=== PATIENT | female | born 1955 | race Caucasian/White ===

== ENCOUNTER 2021-07-30 17:53 | Inpatient (IN) ==
--- NOTE | 2021-07-30 18:26 | Emergency Department Note ---
History of Present Illness General Chief complaint: Confusion Stated complaint: Confusion Time Seen by Provider: 07/30/21 18:13 Source: patient and family ( and daughter) Mode of arrival: EMS History of Present Illness Provider complaint: Altered mental status Onset (ago): hour(s) Location: head Pain Consistency: + constant Maximum Pain Intensity: 6 Quality: + other (Confusion) Relieved By: + none Associated symptoms: + confusion; no chest pain, no cough, no fever/chills, no headaches, no nausea/vomiting or no shortness of breath This is a 66-year-old female brought in by ambulance due to sudden onset of confusion at approximately 2 PM today. is providing much of the history. He states that he went out for a walk with the patient when she became suddenly confused. This happened in May after her first chemotherapy treatment for uterine cancer. That was short-lived but it has not improved at all today. The patient does not know where she is and how she got here. She only states that she has called repeatedly. She is able to answer yes and no questions and denies headache, cough or cold symptoms, fever, chest pain, shortness of breath, abdominal pain, vomiting, diarrhea or urinary symptoms. She did have a hysterectomy at the end of May and has received 2 rounds of chemotherapy. She has never had a stroke before. They do not note a personality change with her. She is on the "feisty" side. Home Medications Medication Instructions Recorded Confirmed Type omeprazole 20 mg capsule,delayed 20 mg PO QAM 05/20/18 07/30/21 History release celecoxib 200 mg capsule 200 mg PO DAILY PRN 07/30/21 07/30/21 History cholecalciferol (vitamin D3) 25 25 mcg PO DAILY 07/30/21 07/30/21 History mcg (1,000 unit) tablet (Vitamin D3) furosemide 20 mg tablet 20 mg PO QAM 07/30/21 07/30/21 History multivitamin 1 tab PO DAILY 07/30/21 07/30/21 History potassium chloride 20 mEq 20 meq PO QAM 07/30/21 07/30/21 History tablet,extended release(part/cryst) Allergies Allergy/AdvReac Type Severity Reaction Status Date / Time erythromycin base Allergy Mild NAUSEA/VOMI Verified 07/30/21 21:04 TTING Past Med/Surg History Medical History GERD (gastroesophageal reflux disease) Osteoarthritis Surgical History History of cataract surgery LEFT 06/13/18: was given 2mg of versed Hx of dilation and curettage Hx of reduction of closed dislocation RIGHT WRIST Hx of tonsillectomy Social History Smoking Status: Unknown if ever smoked Second Hand Exposure: No; Hx Alcohol Use: Yes Alcohol type: beer Hx Substance Use: No Preferred Language: Moroccan Communication Ability: Effective Scissors Sharpener Required: No Beliefs That Will Affect Care: None Current Living Situation: Spouse Feels Safe at Home: Yes Assistive Devices: Glasses Review of Systems See HPI for pertinent positives & negatives. and A total of 10 systems reviewed and were otherwise negative Physical Exam Vital Signs Vital Signs - 24 hr 07/30/21 18:15 07/30/21 19:05 07/30/21 21:18 Temperature 36.9 C Temperature Source Oral Pulse Rate 81 82 Pulse Rate [Right Finger] 80 Respiratory Rate 16 19 Respiratory Effort / Characteristics Non-Labored Respiratory Depth Normal Respiratory Pattern Regular Blood Pressure 125/63 Blood Pressure [Right Arm] 121/52 L Blood Pressure Mean [Right Arm] 75 Pulse Oximetry 96 96 Oxygen Delivery Method Room Air Room Air Sepsis Recent Fever Within 48 Hours No Sepsis New/Unexplained Change in Mental Status N/A Sepsis Action Taken by Nursing No Action Required Constitutional: Vital signs reviewed. Eyes: Pupils are equal round reactive to light. Conjunctiva are noninjected. ENT: Pharynx is clear without erythema or exudate. Mucous membranes are moist. Neck supple without meningeal signs. Respiratory: Clear to auscultation bilaterally. Breath sounds are equal bilaterally. Cardiovascular: Regular rate and rhythm. No rubs or gallops. GI: Soft, nondistended with mild lower abdominal tenderness. Midline incision healing well. No signs of infection. Bowel sounds are present. Rectal: Guaiac negative brown stool. Musculoskeletal: No peripheral edema. No lower extremity tenderness. Integumentary: No cyanosis. or jaundice. Neurologic: The patient is awake and alert. She is oriented to person only. Cranial nerves II-XII are intact. Motor is 5 out of 5 all extremities. Sensation is intact to light touch all extremities. Normal speech. No pronator drift. No limb ataxia. Psychiatric: Unable to assess. States repeatedly that she is cold. Keeps her head under the blanket. Course Administered Medications Magnesium Sulfate/Dextrose (Magnesium Sulfate / D5w) 1 gm in 100 mls @ 100 mls/hr IV Q1H AILEEN Stop: 07/30/21 21:36 Last Admin: 07/30/21 21:15 Dose: 100 mls/hr Documented by: [id number] Infusion: 07/30/21 21:14 Dose: 0 mls/hr Documented by: [id number] Admin: 07/30/21 20:12 Dose: 100 mls/hr Documented by: [id number] Discontinued Medications Diclofenac Sodium (Diclofenac Sod 1% Gel 100 Gm Tube) 2 gm EXT NOW STA Stop: 07/30/21 20:03 Last Admin: 07/30/21 20:12 Dose: 2 gm Documented by: [id number] Potassium Chloride (K Yusuf / Wtr) 10 meq in 100 mls @ 100 mls/hr IV ONE ONE; Protocol Stop: 07/30/21 20:35 Last Infusion: 07/30/21 21:14 Dose: 0 mls/hr Documented by: [id number] Admin: 07/30/21 19:51 Dose: 100 mls/hr Documented by: [id number] Potassium Chloride (Potassium Chloride 10 Meq Tabcr) 40 meq PO NOW STA Stop: 07/30/21 19:37 Last Admin: 07/30/21 19:51 Dose: 40 meq Documented by: [id number] Medical Decision Making Differential Diagnosis CVA, TIA, intracranial hemorrhage, intracranial mass, metastatic disease to the brain, metabolic derangement, encephalopathy Medical Records Attestation: I reviewed the patient's medical records. I did perform a limited focused review of portions of the patient's old chart on the electronic medical record. The patient has had no recent pertinent visits to this hospital. Home Medications Current Medication List: was personally reviewed by me Laboratory Data Attestation: I reviewed the patient's lab results. Result diagrams: 07/30/21 18:27 07/30/21 18:27 Lab Results 07/30/21 07/30/21 07/30/21 Range/Units 18:27 18:27 18:27 WBC 2.42 L (4.8-10.8) K/uL RBC 2.24 L (4.2-5.4) M/uL Hgb 7.0 L (12.0-16.0) g/dL Hct 21.4 L (37-47) % MCV 95.5 (80-100) fL MCH 31.3 (25-34) pg MCHC 32.7 (32-36) g/dL RDW Std Deviation 56.4 H (36.4-46.3) fL RDW Coeff of Khushbu 16.6 H (11.5-14.5) % Plt Count 108 L (130-400) K/uL MPV 10.7 H (7.4-10.4) fL Neutrophils % (Manual) 28.6 % Lymphocytes % (Manual) 48.2 % Monocytes % (Manual) 23.2 % Neutrophils # (Manual) 0.69 L (1.4-6.5) K/uL Total Absolute Neuts 0.69 L* (1.4-6.5) K/uL Lymphocytes # (Manual) 1.17 L (1.2-3.4) K/uL Total Abs Lymphocytes 1.17 L (1.2-3.4) K/uL Monocytes # (Manual) 0.56 (0.11-0.59) K/uL Toxic Granulation 2+ Poikilocytosis Present PT 11.1 (9.0-12.0) Seconds INR 1.0 (0.9-1.1) APTT 26.3 (21.0-31.0) Seconds PTT Ratio 1.0 Sodium 135 L (136-145) mmol/L Potassium 2.8 L (3.5-5.1) mmol/L Chloride 100 (98-107) mmol/L Carbon Dioxide 23 (21-32) mmol/L Anion Gap 12 H (3-11) BUN 12 (6-23) mg/dl Creatinine 1.06 (0.6-1.2) mg/dl Est Cr Clr Drug Dosing 47.6 ml/min Est GFR ( Amer) 62.5 ml/min Est GFR (Non-Af Amer) 53.9 ml/min BUN/Creatinine Ratio 11.3 (10-20) Glucose 98 (70-99(Fasting)) mg/dl Calcium 8.9 (8.5-10.1) mg/dl Magnesium 1.1 L (1.7-2.4) mg/dl Total Bilirubin 0.6 (0.2-1.0) mg/dl AST 14 (13-39) U/L ALT 12 (7-52) U/L Alkaline Phosphatase 77 (34-104) U/L Troponin I High Sens 8.2 (0-14) pg/ml Total Protein 6.7 (6.0-8.3) gm/dl Albumin 3.4 (3.4-5.0) gm/dl Globulin 3.3 (2.5-4.0) gm/dl Albumin/Globulin Ratio 1.0 (0.9-2) Urine Color Urine Appearance (Clear) Urine pH (4.5-7.5) Ur Specific [place] (1.000-1.030) Urine Protein (Negative) Urine Glucose (UA) (Negative) Urine Ketones (Negative) Urine Blood (Negative) Urine Nitrite (Negative) Urine Bilirubin (Negative) Urine Urobilinogen (Negative) Ur Leukocyte Esterase (Negative) SARS-CoV-2, RNA, NAAT (NEGATIVE) Blood Type Antibody Screen 07/30/21 07/30/21 07/30/21 Range/Units 18:45 19:24 20:49 WBC (4.8-10.8) K/uL RBC (4.2-5.4) M/uL Hgb (12.0-16.0) g/dL Hct (37-47) % MCV (80-100) fL MCH (25-34) pg MCHC (32-36) g/dL RDW Std Deviation (36.4-46.3) fL RDW Coeff of Khushbu (11.5-14.5) % Plt Count (130-400) K/uL MPV (7.4-10.4) fL Neutrophils % (Manual) % Lymphocytes % (Manual) % Monocytes % (Manual) % Neutrophils # (Manual) (1.4-6.5) K/uL Total Absolute Neuts (1.4-6.5) K/uL Lymphocytes # (Manual) (1.2-3.4) K/uL Total Abs Lymphocytes (1.2-3.4) K/uL Monocytes # (Manual) (0.11-0.59) K/uL Toxic Granulation Poikilocytosis PT (9.0-12.0) Seconds INR (0.9-1.1) APTT (21.0-31.0) Seconds PTT Ratio Sodium (136-145) mmol/L Potassium (3.5-5.1) mmol/L Chloride (98-107) mmol/L Carbon Dioxide (21-32) mmol/L Anion Gap (3-11) BUN (6-23) mg/dl Creatinine (0.6-1.2) mg/dl Est Cr Clr Drug Dosing ml/min Est GFR ( Amer) ml/min Est GFR (Non-Af Amer) ml/min BUN/Creatinine Ratio (10-20) Glucose (70-99(Fasting)) mg/dl Calcium (8.5-10.1) mg/dl Magnesium (1.7-2.4) mg/dl Total Bilirubin (0.2-1.0) mg/dl AST (13-39) U/L ALT (7-52) U/L Alkaline Phosphatase (34-104) U/L Troponin I High Sens (0-14) pg/ml Total Protein (6.0-8.3) gm/dl Albumin (3.4-5.0) gm/dl Globulin (2.5-4.0) gm/dl Albumin/Globulin Ratio (0.9-2) Urine Color Yellow Urine Appearance Clear (Clear) Urine pH >= 9.0 H (4.5-7.5) Ur Specific [place] 1.010 (1.000-1.030) Urine Protein Negative (Negative) Urine Glucose (UA) Negative (Negative) Urine Ketones Negative (Negative) Urine Blood Negative (Negative) Urine Nitrite Negative (Negative) Urine Bilirubin Negative (Negative) Urine Urobilinogen Negative (Negative) Ur Leukocyte Esterase Negative (Negative) SARS-CoV-2, RNA, NAAT NEGATIVE (NEGATIVE) Blood Type A Positive Antibody Screen NEGATIVE Imaging Data Radiologist's Impression: Head CT 07/30/21 18:23 CT head/brain wo con CLINICAL HISTORY: 66 years-old Female with Stroke Like Symptoms. Acute strokeli ke symptoms TECHNIQUE: Multiple axial CT images of the head were obtained without contrast. A dose lowering technique was utilized adhering to the principles of ALARA. CT DOSE: 945.80 mGy.cm COMPARISON: None. FINDINGS: No acute intracranial hemorrhage, midline shift, intracranial mass, territorial ischemia or abnormal extra-axial collection. Motion degraded exam. Mild involutional changes. Ex vacuo ventriculomegaly. White matter hypodensities suggest chronic micro-Rasco ischemic disease. The calvarium is intact. Prior bilateral lens repair. The paranasal sinuses, mastoid air cells, and middle ear cavities are clear. IMPRESSION: 1. No acute intracranial abnormality. 2. Ventriculomegaly may be secondary to the involutional changes. Normal pressure hydrocephalus could appear similarly. Correlate with clinical presentation. 3. Suggestion of mild chronic microvascular ischemic disease. ACT 112: Negative or not required by law. The above report was generated using voice recognition software. It may contain grammatical, syntax or spelling errors. Electronically signed by: Chetan Leroy M.D. 07/30/2021 6:47 PM ECG Data Attestation: I personally reviewed and interpreted this ECG as follows: Indication: + altered mental status Rate (beats per minute): 86 Rhythm: + normal sinus ECG ST segments: no ST elevation ECG Findings: + PVCs and + Other (Motion artifact in V3 limiting interpretation) MDM Narrative I did evaluate the patient as noted above. I did obtain history from the patient as well as her family were at bedside. She did become confused today at approximately 2 PM. She had no personality change but seem to have issues with her memory. Apparently she was ignoring her . She did not have any slurring of her speech. If this does represent a stroke she is outside of the IV tPA window given the timing. She is neurologically intact here although she cannot remember coming to the emergency department. She is oriented only to person. IV access was established. I did place an order for continuous cardiac monitoring. The monitor showed normal sinus rhythm at a rate of 80 bpm. I did order and personally review the patient's 12-lead EKG as described above. She has no acute ischemic changes on twelve-lead EKG. I did order a chest x-ray but the family refused that stating that they felt it was unnecessary. I did order a urine analysis. She does not have a UTI. I did order and review the patient's blood work as noted in the electronic medical record. She is neutropenic with pancytopenia. She was placed in neutropenic isolation. Hemoglobin is 7 down from 8.9 11 days ago. I did perform a rectal examination which showed guaiac negative brown stool. She denies any black or bloody stools. Electrolytes demonstrate a sodium of 135 and a potassium of 2.8. She is on Lasix. Magnesium is 1.1 as well. She was given IV magnesium and potassium. I did order a CT of the head. I did review the images myself as well as the radiology report as described above. She does appear to have no acute process on CT scan. Angiogram was not performed as she has an allergy to IV dye. She does have ex vacuo ventriculomegaly. No prior imaging is available for comparison. I did discuss case with Dr. Wolfe of [place] [facility] . She recommended hospitalization for MRI and further testing to look for a metabolic encephalopathy. She also recommend possible EEG. I did discuss case with the hospitalist and case finisher. Screening for COVID-19 is negative. Impression & Plan Altered mental status, Acute hypokalemia, Hypomagnesemia, Pancytopenia, Neutropenia Discharge Plan Visit Data Chief Complaint: Confusion Stated Complaint: Confusion ED Provider: John Kent Discharge Problem: Altered mental status, Acute hypokalemia, Hypomagnesemia, Pancytopenia, Neutropenia Patient Disposition: Being Evaluated by Hospitalist Discharge Instructions Interventions: ED Discharge Assessment Last Done: 07/30/21 21:18 Forms Stand Alone Forms: My [facility] Prescriptions Prescriptions: No Action omeprazole 20 mg Capsule,Delayed Release(Dr/Ec) 20 mg PO QAM RF: 0 furosemide 20 mg tablet 20 mg PO QAM RF: 0 multivitamin Tablet 1 tab PO DAILY RF: 0 celecoxib 200 mg capsule 200 mg PO DAILY PRN (Reason: Pain) RF: 0 cholecalciferol (vitamin D3) [Vitamin D3] 25 mcg (1,000 unit) Tablet 25 mcg PO DAILY RF: 0 potassium chloride 20 mEq tablet,ER particles/crystals 20 meq PO QAM RF: 0 Referrals Referrals: Carlos Low MD [Primary Care Provider] - Discharge Problem: Altered mental status Qualifiers: Altered mental status type: disorientation Qualified Code(s): R41.0 - Disorientation, unspecified Neutropenia Qualifiers: Neutropenia type: secondary to cancer chemotherapy Qualified Code(s): D70.1 - Agranulocytosis secondary to cancer chemotherapy
[2021-07-30 18:49] LABS: Hematocrit (blood only) 21.4 % (37-47); Mean Corpuscular Hemoglobin 31.3 pg (25-34); Mean Corpuscular Hgb Conc 32.7 g/dL (32-36); Mean Corpuscular Volume 95.5 fL (80-100); Mean Platelet Volume 10.7 fL (7.4-10.4); Platelet Count 108 K/uL (130-400); RDW Coefficient of Variation 16.6 % (11.5-14.5); RDW Standard Deviation 56.4 fL (36.4-46.3); Red Blood Count 2.24 M/uL (4.2-5.4); White Blood Count 2.42 K/uL (4.8-10.8)
--- NOTE | 2021-07-30 18:49 | CT Scan Report ---
CT head/brain wo con CLINICAL HISTORY: 66 years-old Female with Stroke Like Symptoms. Acute strokelike symptoms TECHNIQUE: Multiple axial CT images of the head were obtained without contrast. A dose lowering tech nique was utilized adhering to the principles of ALARA. CT DOSE: 945.80 mGy.cm COMPARISON: None. FINDINGS: No acute intracranial hemorrhage, midline shift, intracranial mass, territorial ischemia or abnormal extra-axial collection. Motion degraded exam. Mild involutional changes. Ex vacuo ventriculomegaly. W [place] matter hypodensities suggest chronic micro-Rasco ischemic disease. The calvarium is intact. Prior bilateral lens repair. The paranasal sinuses, mastoid air cells, and m iddle ear cavities are clear. IMPRESSION: 1. No acute intracranial abnormality. 2. Ventriculomegaly may be secondary to the involutional changes. Normal pressure hydrocephalus could appear similarly. Correlate with clinical presentation. 3. Suggestion of mild chronic microvascular ischemic disease. ACT 112: Negative or not required by law. The above report was generated using voice recognition software. It may contain grammatical, syntax o r spelling errors. Electronically signed by: Chetan Leroy M.D. 07/30/2021 6:47 PM
[2021-07-30 18:59] LABS: Partial Thromboplastin Time 26.3 Seconds (21.0-31.0); Prothrombin Time 11.1 Seconds (9.0-12.0)
[2021-07-30 19:12] LABS: Albumin Level 3.4 gm/dl (3.4-5.0); BUN Creatinine Ratio 11.3 (10-20); Bilirubin,Total 0.6 mg/dl (0.2-1.0); Calcium 8.9 mg/dl (8.5-10.1); Creatinine Clr Calc Pharmacy 47.6 ml/min; Est GFR (African American) 62.5 ml/min; Est GFR (Non-African American) 53.9 ml/min; Globulin 3.3 gm/dl (2.5-4.0); Magnesium 1.1 mg/dl (1.7-2.4); Potassium 2.8 mmol/L (3.5-5.1); Total Protein 6.7 gm/dl (6.0-8.3)
[2021-07-30 19:16] LABS: Troponin I High Sensitivity 8.2 pg/ml (0-14)
[2021-07-30 19:26] LABS: Poikilocytosis Present; Toxic Granulation 2+
[2021-07-30 19:28] LABS: ALC (manual) 1.17 K/uL (1.2-3.4); Lymphocytes # (manual) 1.17 K/uL (1.2-3.4); Lymphocytes % (manual) 48.2 %; Monocytes # (manual) 0.56 K/uL (0.11-0.59); Monocytes % (manual) 23.2 %; Neutrophils # (manual) 0.69 K/uL (1.4-6.5); Neutrophils % (manual) 28.6 %
[2021-07-30] MEDS ORDERED: POTASSIUM CHLORIDE 10 MEQ TABCR PO STA (19:36)
[2021-07-30] MEDS ORDERED: POTASSIUM CHLORIDE / WTR 10 MEQ/100 ML PLCT IV ONE (19:36)
[2021-07-30] MEDS ORDERED: DICLOFENAC SOD 1% GEL 100 GM TUBE EXT STA (20:02)
[2021-07-30] MEDS: MAGNESIUM SULFATE / D5W 1 GM/100 ML BAG IV SCH ×2 (20:12→21:15)
[2021-07-30] MEDS ORDERED: THIAMINE HCL 200 MG in SODIUM CHLORIDE 0.9% 50 ML IV STA (20:58)
[2021-07-30 21:05] LABS: Appearance Urine Clear (Clear); Bilirubin Urine Negative (Negative); Blood Urine Negative (Negative); Color Urine Yellow; Glucose Urine UA Negative (Negative); Ketones Urine Negative (Negative); Leukocyte Esterase Urine Negative (Negative); Nitrite Urine Negative (Negative); Protein Urine Negative (Negative); Urobilinogen Urine Negative (Negative); pH Urine >= 9.0 (4.5-7.5)
[2021-07-30] MEDS ORDERED: POLYETHYLENE (MIRALAX) 17 GM PACK PO PRN (21:49)
[2021-07-30] MEDS ORDERED: PHARMACIST DISCHARGE MED REC CONSULT PRN (21:49)
[2021-07-30] MEDS ORDERED: ACETAMINOPHEN 325 MG TAB PO PRN (21:49)
[2021-07-30] MEDS ORDERED: oxyCODONE HCL IR 5 MG TAB (IMMEDIATE RELEASE) PO PRN (21:49)
[2021-07-30] MEDS ORDERED: ONDANSETRON INJ 2 MG/ML 2 ML VIAL IV PRN (21:49)
[2021-07-30] MEDS ORDERED: NITROGLYCERIN SL 0.4 MG/TAB TAB SL PRN (21:49)
[2021-07-30] MEDS: MAGNESIUM OXIDE 400 MG TAB PO SCH (22:29)
[2021-07-30] MEDS: SENNA 8.6 MG TAB PO SCH (22:34)
[2021-07-30] MEDS: D5NSS + 20MEQ KCL 20 MEQ/1,000 ML BAG IV SCH (22:34)
[2021-07-30] MEDS: POTASSIUM CHLORIDE / WTR 10 MEQ/100 ML PLCT IV SCH ×2 (22:35→23:37)
[2021-07-31] MEDS ORDERED: GADOBUTROL 7.5ML VIAL IV ONE (00:23)
--- NOTE | 2021-07-31 00:43 | History and Physical Report ---
CHIEF COMPLAINT: Confusion. HISTORY OF PRESENT ILLNESS: This 66-year-old female with past medical history significant for mild aortic stenosis, history of retinal vein occlusion of left eye, seasonal allergic rhinitis, osteoarthritis, degenerative disk disease, history of acute angle-closure glaucoma. The patient currently recently diagnosed with metastatic endometrial cancer, stage IVB, received 3 cycles of neoadjuvant chemotherapy and after that she underwent surgery on 06/28/2020 total abdominal hysterectomy, bilateral salpingo-oophorectomy. Currently back on chemo, last chemo was on 07/19/2021.Today the patient was walking with her around 2:00 p.m. when patient got confused. It happened in May after first chemo, but it was short-lived, but today it did not get better and she was brought to the ER. In the ER, CT of the head was okay. Could not do CTA because she is allergic to IV dye. Potassium 2.8 and magnesium 1.1. ER talked to the [facility] neurologist that recommended to work up with EEG, MRI scan and also other metabolic encephalopathy. Currently, the patient seems to be much improved as per the family, and daughter in the room. Currently, knows her , knows her daughter's name. Alert, oriented x 3. Somewhat hard of hearing, but answering appropriately, feeling cold in blankets. Moves all extremities. As per , there is no fever or chills. No nausea, no vomiting, no complaints of chest pain or shortness of breath. Somewhat constipated. Denies any blood in stools. Normal bladder movements. No hematuria, no blood in the stools. Otherwise, ambulating fine. Appetite is okay. No complaint of headache. No runny nose, no sore throat. No belly pain. Currently, stating resting comfortably and hemodynamically stable. ALLERGIES: ERYTHROMYCIN BASE. PAST MEDICAL HISTORY: As mentioned above. PAST SURGICAL HISTORY: Bilateral cataract surgery, colonoscopy, dilatation and curettage secondary to miscarriage, EGDs, exploration of exploratory laparotomy, open reduction and internal fixation of the wrist fracture. Tunnel catheter insertion, MediPort insertion, tonsillectomy, total abdominal hysterectomy with removal of tubes. MEDICATIONS: Currently, the patient is on celecoxib 200 mg p.o. daily p.r.n., vitamin D 25 mcg p.o. daily, Lasix 20 mg p.o. a.m., multivitamin 1 tablet p.o. a.m., omeprazole 20 mg p.o. a.m., potassium chloride 20 mEq p.o. a.m. FAMILY HISTORY: Significant for father has arthritis, heart disorder. Mother has arthritis, lung cancer. Sister has asthma. Brother has nasopharyngeal cancer, prostate cancer. SOCIAL HISTORY: . No smoking. Alcohol, social drinking. No drug use. REVIEW OF SYSTEMS: As per HPI. Rest of review of systems is negative. PHYSICAL EXAMINATION: GENERAL: The patient is of moderate build, not in acute distress. VITAL SIGNS: Temperature 36.9, pulse 80, respiratory rate 16, blood pressure 121/52, oxygen 96% on room air. HEENT: Pupils equal, round and reactive to light. Oral mucosa moist. NECK: No JVD, no neck masses. CARDIOVASCULAR: S1 and S2 heard. Regular rate and rhythm. No murmur, no gallop. RESPIRATORY SYSTEM: Normal AP diameter. No accessory muscle use. No wheezing, no crackles. ABDOMEN: Soft, bowel sounds present, nontender, no distention. CENTRAL NERVOUS SYSTEM: Alert and oriented x 3. Obeys simple commands. Insight is good. Power 5/5 in all extremities. Sensation is intact. Coordination of movements normal. Extraocular muscles intact. Speech is clear. No facial droop. EXTREMITIES: Bilateral lower extremity edema present, no erythema seen. LABORATORY DATA: WBC 2.4, hemoglobin 7, hematocrit 21.4, platelets 108. PT 11.1, INR 1, APTT 26.3. Sodium 135, potassium 2.8, chloride 100, bicarbonate 23, BUN 32, creatinine 1.06, serum glucose 98, calcium 8.9. Magnesium 1.1, total bilirubin 0.6, AST 14, ALT 12, alkaline phosphatase 77. Troponin I high sensitivity 8.2. Urinalysis negative. Rapid COVID test negative. IMAGING DATA: CT of the head without contrast, no acute intracranial abnormality, ventriculomegaly may be secondary to involutional changes, normal pressure hydrocephalus could appear similar. Mild chronic microvascular ischemic disease. EKG: Sinus rhythm with occasional PVCs at a rate of 86, nonspecific T-wave abnormalities. ASSESSMENT AND PLAN: This is a 66-year-old female with no history of stage IV uterine cancer, currently under chemo. Presents with confusion. 1. Confusion. The patient has history of confusion after first cycle of chemo. Currently, had surgery and again started a chemotherapy, last chemo was on 07/19/2021. . Initial workup, CT scan is unremarkable. Currently, the patient seems to be much improved. Neurology recommended MRI scan, EEG and other rule out any underlying metabolic encephalopathy. We will order MRI, EEG monitor in tele floor. Will give iv thiamine.Ventriculomegaly on ct scan. Will follow MRI. Consult neurology in the a.m. 2. Pancytopenia, most likely secondary to chemotherapy. We will follow the repeat labs. 3. Hypokalemia and hypomagnesemia. Replacing. We will follow the repeat labs. 4. Hypertension: On losartan. Follow the blood pressure. 5. History of lower extremity edema: On Lasix, which we are holding currently. 6. Gastroesophageal reflux disease, omeprazole. 7. Deep venous thrombosis prophylaxis: Sequential compression devices for now. DISPOSITION: Closely monitor in the med tele. PT/OT prior to discharge. Social service to help with discharge planning. Job ID: [id number] MTDD
[2021-07-31 06:20] LABS: BUN Creatinine Ratio 10.1 (10-20); Calcium 8.3 mg/dl (8.5-10.1); Chol HDL Ratio 6.7 (0-5); Creatinine Clr Calc Pharmacy 54.8 ml/min; Est GFR (African American) 77.2 ml/min; Est GFR (Non-African American) 66.6 ml/min; Magnesium 1.9 mg/dl (1.7-2.4); Potassium 3.8 mmol/L (3.5-5.1)
[2021-07-31 06:30] LABS: Hematocrit (blood only) 19.7 % (37-47); Hemoglobin 6.4 g/dL (12.0-16.0); Mean Corpuscular Hemoglobin 31.4 pg (25-34); Mean Corpuscular Hgb Conc 32.5 g/dL (32-36); Mean Corpuscular Volume 96.6 fL (80-100); Mean Platelet Volume 10.3 fL (7.4-10.4); Platelet Count 94 K/uL (130-400); RDW Coefficient of Variation 17.2 % (11.5-14.5); RDW Standard Deviation 59.8 fL (36.4-46.3); Red Blood Count 2.04 M/uL (4.2-5.4); White Blood Count 2.58 K/uL (4.8-10.8)
[2021-07-31 06:32] LABS: Anisocytosis Present; Eosinophils # (auto) 0.02 K/uL (0-0.5); Eosinophils % (auto) 0.8 %; Immature Granulocytes # (auto) 0.03 K/uL (0.00-0.02); Immature Granulocytes % (auto) 1.2 %; Lymphocytes # (auto) 1.41 K/uL (1.2-3.4); Lymphocytes % (auto) 54.7 %; Monocytes # (auto) 0.58 K/uL (0.11-0.59); Monocytes % (auto) 22.5 %; Neutrophils # (auto) 0.54 K/uL (1.4-6.5); Neutrophils % (auto) 20.8 %; Platelet Estimate Decreased (Normal)
[2021-07-31 06:42] LABS: Folate (Folic Acid) 20.56 ng/ml (>5.38)
--- NOTE | 2021-07-31 06:42 | Ultrasound Report ---
ULTRASOUND OF THE CAROTID ARTERIES CLINICAL HISTORY: Strokelike symptoms. COMPARISON STUDY: No priors. TECHNIQUE: Real-time, grayscale, and color Doppler sonography of the carotid arteries is performed. I mages are reviewed in the transverse and longitudinal planes. FINDINGS: The carotid arteries are patent bilaterally and demonstrate antegrade flow. There is mild atheroscler otic plaque seen in the carotid bulbs. Normal doppler arterial waveforms are seen throughout. Velocit y measurements are listed below. Common carotid peak systolic velocity (cm/sec): RIGHT: 74 LEFT: 75 ICA proximal peak systolic velocity (cm/sec): RIGHT: 79 LEFT: 70 ICA mid peak systolic velocity (cm/sec): RIGHT: 75 LEFT: 53 ICA distal peak systolic velocity (cm/sec): RIGHT: 84 LEFT: 57 ICA/CC peak systolic ratio: RIGHT: 1.1 LEFT: 0.9 Antegrade flow was shown in the vertebral arteries. The external carotid arteries are patent. IMPRESSION: 1. There is no sonographic evidence of hemodynamically significant stenosis in the right or left zhang tid arterial system. 2. Antegrade flow is shown in the vertebral arteries. ACT 112: Negative or not required by law. Electronically signed by: Oscar Burns M.D. 07/31/2021 6:41 AM
[2021-07-31 06:43] LABS: Vitamin B12 > 1500 pg/ml (180-914)
--- NOTE | 2021-07-31 06:52 | Magnetic Resonance Report ---
MRI OF THE BRAIN COMBO CLINICAL HISTORY: Change in mental status. COMPARISON STUDY: CT of the brain dated 07/30/2021. TECHNIQUE: MRI of the brain was performed utilizing various T1 and T2-weighted sequences in the axial , sagittal, and coronal planes. Contrast-enhanced sequences were acquired following the administratio n of 6 cc of Gadavist. FINDINGS: Brain parenchyma: There is age-related involutional change noting minimal microangiopathic disease. A small chronic lacunar infarct is noted in the left cerebellar hemisphere. There is also a tiny chron ic infarct in the left posterior parietal lobe. There is no hemorrhage or mass effect. There is no re stricted diffusion to suggest acute ischemia. No enhancing mass lesion is identified on the postcontr ast images. Deshpande-white matter differentiation is preserved. No extra-axial fluid collection is seen. The cerebellar tonsils are normal in configuration. Ventricles, sulci, and cisterns: Prominent secondary to involutional change. There is asymmetric dila tation of the lateral ventricles and third ventricle. Pituitary and sella: Unremarkable. Intracranial vasculature: Normal flow voids are maintained at the skull base. Orbits: The bony orbits are grossly intact. Orbital contents are normal in appearance noting bilatera l ocular lens implants. Sinuses and mastoids: The paranasal sinuses are clear. There is a small left mastoid effusion. Calvarium: Unremarkable. Cervical cord: Partially visualized cervical spinal cord is normal in morphology and signal intensity . IMPRESSION: 1. There is no hemorrhage, enhancing mass, or evidence of acute ischemia. 2. Ventriculomegaly is similar to previous. This could be related to involutional change versus hydro cephalus. Clinical correlation will be required. ACT 112: Negative or not required by law. Electronically signed by: Oscar Burns M.D. 07/31/2021 6:49 AM
[2021-07-31] MEDS: D5NSS + 20MEQ KCL 20 MEQ/1,000 ML BAG IV SCH ×3 (06:58→21:54)
[2021-07-31] MEDS: PANTOprazole 40 MG TAB PO SCH (08:37)
[2021-07-31] MEDS: MAGNESIUM OXIDE 400 MG TAB PO SCH ×2 (08:37→21:51)
[2021-07-31] MEDS: LOSARTAN POTASSIUM 25 MG TAB PO SCH (08:37)
[2021-07-31] MEDS: SENNA 8.6 MG TAB PO SCH ×2 (08:38→21:54)
[2021-07-31] MEDS ORDERED: SODIUM CHLORIDE 0.9% 250 ML IV PRN (08:44)
[2021-07-31 10:59] LABS: ANC (manual) 0.69 K/uL (1.4-6.5)
--- NOTE | 2021-07-31 14:50 | Communication Note ---
Date of Service: July 31, 2021 66-year-old female with history of metastatic endometrial cancer with ongoing chemotherapy was admitted with increasing confusion. Apparent investigation including MRI of the head have been negative. She was noted to have a very low hemoglobin with pancytopenia likely secondary to ongoing chemo and is complicated by metastatic disease. Remains a stable and has been getting blood transfusion. Will have full progress note tomorrow. DR Ameena Ortiz
--- NOTE | 2021-07-31 14:54 | Consultation Report ---
DATE OF SERVICE: 07/31/2021 REASON FOR CONSULTATION: Confusion. This visit was conducted via iPad while I was at home and the patient was in the hospital. The patient served as the chief historian. I reviewed the chart and called her , but there was no answer. HISTORY OF PRESENT ILLNESS: The patient reports that she was otherwise well yesterday, although had recently received chemotherapy and she was going up the back porch steps, which took an exceptionally long period of time, which she attributes to some chronic instability and she is amnestic for several hours until she came into the hospital. She only felt that she was off. She was not eating or drinking very much. She does not recall being amnestic, having trouble forming memories or repeating herself. Unalerting, she had no headache, unilateral weakness, or numbness. There is no incontinence, injury, or unilateral neurologic symptoms. She has lost 45 pounds since April. She indicates that several weeks ago that 9 days post-chemotherapy, she crumbled in the driveway. There is reference in the chart to a prior episode several weeks ago. To review the provided history from family, the patient was walking around 2:00 p.m., when she seemed confused, "it had happened in May after first chemo, but it was short lived, but today did not get better and she was brought to the Emergency Room." ER talked to her, stroke neurologist recommended an EEG and MRI and evaluation for toxic metabolic etiologies. Her evaluation today included a white count of 2.42, H and H of 17/21, platelet count of 108. Sodium 135, potassium 2.8, glucose ____, transaminases normal. Folate normal, B12 normal. Urinalysis negative. MRI brain shows ventriculomegaly similar to previous, could be involutional change versus hydrocephalus. I have reviewed her outpatient MRI of the brain performed in 2019 and it appears fairly similar. The patient's carotid ultrasound showed no significant narrowing with antegrade flow in the vertebral arteries. The patient's EKG was poor quality, sinus rhythm. REVIEW OF SYSTEMS: The patient notes chronic instability without vertigo for about 2 years preceding the diagnosis of cancer. She has had numbness in her feet and hands since beginning chemotherapy, which was 3 months ago. 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 PAST SURGICAL HISTORY: Bilateral cataract, colonoscopy, D and C, exploratory laparotomy, ORIF of wrist fracture, catheter insertion, tonsillectomy, total abdominal hysterectomy. HOME MEDICATIONS: Celebrex, vitamin D, Lasix, multiple vitamin, omeprazole, potassium. ALLERGIES: ERYTHROMYCIN. FAMILY HISTORY: Father has arthritis and heart disease. Mother has arthritis and lung cancer. Sister has nasopharyngeal cancer. Brother, prostate cancer. SOCIAL HISTORY: Nonsmoking. Alcohol social. PHYSICAL EXAMINATION: On exam, 115/69, 75, 18, 36.7, O2 sat 99%. The patient is awake and alert. Speech and language are normal. Affect appropriate, oriented x3. There is no right/left confusion. Naming, repetition and 3-step commands are normal. Normal extraocular motility, facial symmetry. No dysarthria. Tongue midline. Motor: No drift in the bilateral upper extremities. Equal rapid alternating movements. Lower extremity antigravity. Ljfprd-un-imny is normal. No dysdiadochokinesia. Mvxt-iw-evsw is normal. IMPRESSION: Confusional episode. Differential including transient ischemic attack, transient global amnesia, seizure, metabolic abnormality. PLAN: MRI has been performed and shows ventriculomegaly, which appears unchanged. We will have her images pushed into our system. Recommend complete vascular workup including echo, cardiac monitoring and EEG. The patient has chronic gait dysfunction. I did not ambulate the patient while on this visit as she was getting a blood transfusion. We will need to do so. She does have ventriculomegaly, which may be out of proportion to atrophy, although it has been stable. We will need to see if she has the gait dysfunction of NPH. She does not appear to have cognitive dysfunction and she does not have urinary incontinence. This would not be an explanation for acute confusion. We will follow with you. Job ID: [id number] [facility]
[2021-07-31] MEDS ORDERED: DICLOFENAC SOD 1% GEL 100 GM TUBE EXT PRN (18:28)
[2021-07-31] MEDS ORDERED: Nursing to Pharmacy Communication SCH (19:45)
[2021-08-01] MEDS: HEPARIN 100 UNIT/ML 5ML FLUSH FLUSH PRN ×2 (05:53→12:25)
[2021-08-01] MEDS: D5NSS + 20MEQ KCL 20 MEQ/1,000 ML BAG IV SCH (05:53)
--- NOTE | 2021-08-01 06:40 | Electrocardiogram Report ---
Test Reason : Blood Pressure : / mmHG Vent. Rate : 086 BPM Atrial Rate : 086 BPM P-R Int : 158 ms QRS Dur : 074 ms QT Int : 402 ms P-R-T Axes : 034 032 033 degrees QTc Int : 481 ms Poor data quality, interpretation may be adversely affected Sinus rhythm with occasional Premature ventricular complexes Nonspecific T wave abnormality Abnormal ECG No previous ECGs available Confirmed by Aj Blanc ([id number]) on 08/01/2021 6:40:10 AM Referred By: REFERRED SELF Confirmed By:Aj Blanc
[2021-08-01 08:15] LABS: Hematocrit (blood only) 29.4 % (37-47); Mean Corpuscular Hemoglobin 30.7 pg (25-34); Mean Corpuscular Volume 90.2 fL (80-100); Mean Platelet Volume 10.3 fL (7.4-10.4); Platelet Count 77 K/uL (130-400); RDW Coefficient of Variation 18.5 % (11.5-14.5); RDW Standard Deviation 59.8 fL (36.4-46.3); Red Blood Count 3.26 M/uL (4.2-5.4); White Blood Count 4.26 K/uL (4.8-10.8)
[2021-08-01 08:28] LABS: BUN Creatinine Ratio 6.9 (10-20); Calcium 8.2 mg/dl (8.5-10.1); Creatinine Clr Calc Pharmacy 69.9 ml/min; Est GFR (African American) 99.7 ml/min; Est GFR (Non-African American) 86.1 ml/min; Magnesium 1.5 mg/dl (1.7-2.4); Phosphorus 2.8 mg/dl (2.5-4.9); Potassium 3.9 mmol/L (3.5-5.1)
[2021-08-01 08:37] LABS: Basophils # (auto) 0.01 K/uL (0-0.2); Basophils % (auto) 0.2 %; Eosinophils # (auto) 0.01 K/uL (0-0.5); Eosinophils % (auto) 0.2 %; Immature Granulocytes # (auto) 0.01 K/uL (0.00-0.02); Immature Granulocytes % (auto) 0.2 %; Lymphocytes # (auto) 1.79 K/uL (1.2-3.4); Monocytes % (auto) 16.4 %; Neutrophils # (auto) 1.74 K/uL (1.4-6.5); Toxic Granulation 1+
[2021-08-01 08:40] LABS: Estimated Average Glucose 111 mg/dl; Hemoglobin A1C 5.5 % (4.5-5.6)
[2021-08-01] MEDS: SENNA 8.6 MG TAB PO SCH (09:00)
[2021-08-01] MEDS: PANTOprazole 40 MG TAB PO SCH (09:05)
[2021-08-01] MEDS: LOSARTAN POTASSIUM 25 MG TAB PO SCH (09:05)
[2021-08-01] MEDS: MAGNESIUM OXIDE 400 MG TAB PO SCH (09:05)
--- NOTE | 2021-08-01 12:11 | Neurology Progress Note ---
Date of Service August 01, 2021 Assessment & Plan (1) Altered mental status: Plan: 1. MRI brain- stable when compared to previous imaging done out patient - seen by Dr Chase 2. correct lytes 3. will need to evaluate gait for possible hydrocephalus driven issues. 4. EEG was read as normal OK to discharge when medically stable will arrange follow up as outpatient 4-6 weeks. for evaluation of gait issues. Admission and Anticipated Discharge Date Admission Date: July 30, 2021 Supervising Physician Co-Signing Physician Notes I have seen and discussed above patient with Dr Lore Ulloa, neurology. pt dc prior to my video arrival at hosp. [facility] discussed with pt . Confusional episode unclear etiology, amb eeg at outpt with fu with our department. MD Clyde Subjective She was in her normal state of health and recently received chemotherapy. She was going up the back porch steps which took an exceptionally long period of time which she attributes to some chronic instability. She is amnestic for several hours until she came into the hospital. She was not eating or drinking very much. She does not recall being amnestic, having trouble forming memories or repeating herself. She has lost 45 pounds since April. After 9 days post-chemotherapy, she crumbled in the driveway She was walking around 2:00 p.m., when she seemed confused, "it had happened in May after first chemo, but it was short lived, but today did not get better and she was brought to the [facility] ED 07/31/21 for further evaluation. She had an EEG and MRI and evaluation for toxic metabolic etiologies. talked to her he took her in the house and she set down on the stairs and was not communicating they called EMS. This happened the first time she had chemo with the labs worse this time than previous. she did feel weak and said she was not feeling well. Physical Exam Physical Exam: no exam just chart review Results & Data ([facility]) Vital Signs (Past 12 Hours) Vital Signs Temp Pulse Pulse Resp BP Pulse Ox 08/01/21 11:38 36.6 C 76 18 172/93 H 100 08/01/21 08:00 85 08/01/21 07:33 36.7 C 71 16 124/66 100 08/01/21 02:36 36.6 C 73 18 134/69 97 Laboratory Results Abnormal lab results 07/30/21 08/01/21 08/01/21 Range/Units 18:45 07:45 07:45 WBC 4.26 L (4.8-10.8) K/uL RBC 3.26 L (4.2-5.4) M/uL Hgb 10.0 L D (12.0-16.0) g/dL Hct 29.4 L (37-47) % RDW Std Deviation 59.8 H (36.4-46.3) fL RDW Coeff of Khushbu 18.5 H (11.5-14.5) % Plt Count 77 L (130-400) K/uL [place] # (Auto) 0.70 H (0.11-0.59) K/uL Chloride 112 H (98-107) mmol/L BUN 5 L (6-23) mg/dl BUN/Creatinine Ratio 6.9 L (10-20) Calcium 8.2 L (8.5-10.1) mg/dl Magnesium 1.5 L (1.7-2.4) mg/dl Crossmatch See Detail Diagnostic Findings MRI brain-There is no hemorrhage, enhancing mass, or evidence of acute ischemia. Ventriculomegaly is similar to previous. This could be related to involutional change versus hydrocephalus. Clinical correlation will be required. Carotid doppler- There is no sonographic evidence of hemodynamically significant stenosis in the right or left carotid arterial system. Antegrade flow is shown in the vertebral arteries. EEG- preliminary no seizure focus (1) Altered mental status Altered mental status type: disorientation Qualified Code(s): R41.0 - Disorientation, unspecified
--- NOTE | 2021-08-01 12:22 | Electroencephalogram ---
EEG Procedure Note Date of Service August 01, 2021 Start / End Times Start Time: 09 End Time: [address] Cortes History recurrent amnesia question seizure Home Medication List Medication Instructions Recorded Confirmed Type omeprazole 20 mg capsule,delayed 20 mg PO QAM 05/20/18 07/30/21 History release celecoxib 200 mg capsule 200 mg PO DAILY PRN 07/30/21 07/30/21 History cholecalciferol (vitamin D3) 25 25 mcg PO DAILY 07/30/21 07/30/21 History mcg (1,000 unit) tablet (Vitamin D3) furosemide 20 mg tablet 20 mg PO QAM 07/30/21 07/30/21 History multivitamin 1 tab PO DAILY 07/30/21 07/30/21 History potassium chloride 20 mEq 20 meq PO QAM 07/30/21 07/30/21 History tablet,extended release(part/cryst) Inpatient Medication List Heparin Sodium (Porcine) (Heparin 100 Unit/Ml 5ml Flush) 5 ml FLUSH PRN PRN PRN Reason: Flush Stop: 08/30/21 19:39 Last Admin: 08/01/21 05:53 Dose: 5 ml Documented by: [id number] Potassium Chloride/Dextrose/Sod Cl (D5nss + 20meq Kcl) 20 meq in 1,000 mls @ 125 mls/hr IV .Q8H AILEEN Stop: 08/29/21 21:59 Last Infusion: 08/01/21 11:47 Dose: 0 mls/hr Documented by: [id number] Admin: 08/01/21 05:53 Dose: 125 mls/hr Documented by: [id number] Infusion: 08/01/21 05:53 Dose: 125 mls/hr Documented by: [id number] Admin: 07/31/21 21:54 Dose: 125 mls/hr Documented by: [id number] Admin: 07/31/21 20:34 Dose: Not Given Documented by: [id number] Infusion: 07/31/21 19:16 Dose: 0 mls/hr Documented by: [id number] Admin: 07/31/21 06:58 Dose: 125 mls/hr Documented by: [id number] Infusion: 07/31/21 06:34 Dose: 125 mls/hr Documented by: [id number] Admin: 07/30/21 22:34 Dose: 125 mls/hr Documented by: [id number] Losartan Potassium (Losartan Potassium 25 Mg Tab) 25 mg PO QAM [facility] Stop: 08/30/21 08:59 Last Admin: 08/01/21 09:05 Dose: 25 mg Documented by: [id number] Admin: 07/31/21 08:37 Dose: 25 mg Documented by: [id number] Magnesium Oxide (Magnesium Oxide 400 Mg Tab) 400 mg PO BID [facility] Stop: 08/29/21 21:48 Last Admin: 08/01/21 09:05 Dose: 400 mg Documented by: [id number] Admin: 07/31/21 21:51 Dose: 400 mg Documented by: [id number] Admin: 07/31/21 08:37 Dose: 400 mg Documented by: [id number] Admin: 07/30/21 22:29 Dose: 400 mg Documented by: [id number] Pantoprazole Sodium (Pantoprazole 40 Mg Tab) [facility] Stop: 08/30/21 08:59 Last Admin: 08/01/21 09:05 Dose: 40 mg Documented by: [id number] Admin: 07/31/21 08:37 Dose: 40 mg Documented by: [id number] Sennosides (Senna 8.6 Mg Tab) 8.6 mg PO AMHS [facility] Stop: 08/29/21 21:48 Last Admin: 08/01/21 09:00 Dose: Not Given Documented by: [id number] Admin: 07/31/21 21:54 Dose: Not Given Documented by: [id number] Admin: 07/31/21 08:38 Dose: 8.6 mg Documented by: [id number] Admin: 07/30/21 22:34 Dose: Not Given Documented by: [id number] Discontinued Medications Diclofenac Sodium (Diclofenac Sod 1% Gel 100 Gm Tube) 2 gm EXT NOW STA Stop: 07/30/21 20:03 Last Admin: 07/30/21 20:12 Dose: 2 gm Documented by: [id number] Gadobutrol (Gadobutrol 7.5ml Vial) 6 ml IV ONCE ONE Stop: 07/31/21 00:24 Last Admin: 07/31/21 00:24 Dose: 6 ml Documented by: [id number] Magnesium Sulfate/Dextrose (Magnesium Sulfate / D5w) 1 gm in 100 mls @ 100 mls/hr IV Q1H AILEEN Stop: 07/30/21 21:36 Last Infusion: 07/30/21 22:23 Dose: 0 mls/hr Documented by: [id number] Admin: 07/30/21 21:15 Dose: 100 mls/hr Documented by: [id number] Infusion: 07/30/21 21:14 Dose: 0 mls/hr Documented by: [id number] Admin: 07/30/21 20:12 Dose: 100 mls/hr Documented by: [id number] Potassium Chloride (K Yusuf / Wtr) 10 meq in 100 mls @ 100 mls/hr IV ONE ONE; Protocol Stop: 07/30/21 20:35 Last Infusion: 07/30/21 21:14 Dose: 0 mls/hr Documented by: [id number] Admin: 07/30/21 19:51 Dose: 100 mls/hr Documented by: [id number] Thiamine HCl 200 mg/ Sodium (Chloride) 52 mls @ 208 mls/hr IV NOW STA Stop: 07/30/21 20:59 Last Infusion: 07/30/21 23:03 Dose: 0 mls/hr Documented by: [id number] Admin: 07/30/21 22:34 Dose: 208 mls/hr Documented by: [id number] Potassium Chloride (K Yusuf / Wtr) 10 meq in 100 mls @ 100 mls/hr IV Q1H AILEEN; Protocol Stop: 07/30/21 23:59 Last Infusion: 07/31/21 00:40 Dose: 0 mls/hr Documented by: [id number] Admin: 07/30/21 23:37 Dose: 100 mls/hr Documented by: [id number] Infusion: 07/30/21 23:35 Dose: 100 mls/hr Documented by: [id number] Admin: 07/30/21 22:35 Dose: 100 mls/hr Documented by: [id number] Potassium Chloride (Potassium Chloride 10 Meq Tabcr) 40 meq PO NOW STA Stop: 07/30/21 19:37 Last Admin: 07/30/21 19:51 Dose: 40 meq Documented by: [id number] Description This is a 21 electrode EEG with a single channel dedicated to limited EKG. The electrodes were placed in accordance with the International 10-20 system. this EEG was does a bedside recording and is of good technical quality. Photic stimulation was performed. drowsiness and light sleep were not recorded. Hyperventilation was not performed under these conditions there is evidence for normal appearing background rhythm in the alpha range of 0-10 hertz maximum frequency of 30 microvolts maximum amplitude. This is maximum posterior head regions and bilaterally symmetrical. Polymorphic mid frequency theta activity seen centrally and symmetrically. Beta activity seen bifrontally. Photic stimulation provokes a modest driving response no potentially epileptogenic discharges are seen Interpretation normal EEG during wakefulness Clinical Correlation this EEG is normal during wakefulness revealing no evidence for focal or generalized encephalopathy no evidence for potentially epileptogenic activity Reg Gómez MD
[2021-08-01 12:48] LABS: Hematocrit (blood only) 29.7 % (37-47); Hemoglobin 10.1 g/dL (12.0-16.0)
--- NOTE | 2021-08-01 12:49 | Hospitalist Progress Note ---
Date of Service August 01, 2021 Assessment & Plan (1) Altered mental status: Plan: Presented with acute confusion following chemo Has had similar presentation with chemo before Neuro symptoms suggestive of TIA versus stroke Has had EEG, CT scan and MRI, echocardiogram to rule out source of any stroke Appreciate neurology input and recommendation Mental status has been at baseline She will be discharged home this afternoon (2) Pancytopenia: Plan: Has pancytopenia secondary to chemotherapy and is complicated by stage IV metastatic uterine cancer Hemoglobin dropped to 6.4 on admission Status post 2 units of blood transfusion and hemoglobin went up to 10.0 Will repeat H&H this afternoon and if stable will be discharged home (3) Endometrial cancer: Plan: Has stage IV metastatic endometrial cancer Under care of oncologist and has been getting chemotherapy Was advised to keep up with a follow-up appointment for continued chemo as per oncologist (4) Aortic stenosis: Plan: No significant aortic stenosis and no significant cardiac symptoms Will be discharged home this afternoon Admission and Anticipated Discharge Date Admission Date: July 30, 2021 Subjective 08/01/2021 The patient was seen and examined in medical telemetry unit She has been feeling much better and has been walking around in the room without any significant symptoms She denies to have any more neurological symptoms Review of Systems Review of Systems: All systems reviewed and are unremarkable except as noted below Neurologic: Generally weak but no focal neurodeficit Physical Exam Physical Exam: Sitting at the edge of the bed without any symptoms Constitutional: + ill appearing and average body habitus Eyes: PERRL, conjunctivae normal, anicteric sclerae ENMT: external ear and nose normal, oropharynx normal Neck: trachea midline, no thyromegaly Respiratory: no respiratory distress Auscultation: lungs clear to auscultation bilaterally; no crackles Cardiovascular: Rate/Rhythm: regular rate and regular rhythm; not tachycardic Heart Sounds: normal S1 and normal S2; no murmur Extremities: + edema (Trace edema bilaterally) Gastrointestinal (Abdomen): Inspection/Auscultation: normal bowel sounds; abdomen not distended Percussion/Palpation: abdomen soft; abdomen nontender Musculoskeletal: No acute arthritis in any joint Neurologic: Alert, awake and oriented x3. Generally weak Psychiatric: A+Ox3, euthymic affect Lymphatic: no cervical or axillary lymphadenopathy Results & Data Results & Data ([facility]) Vital Signs (Past 12 Hours) Vital Signs Temp Pulse Pulse Resp BP Pulse Ox 05/02/22 11:38 36.6 C 76 18 172/93 H 100 08/01/21 08:00 85 08/01/21 07:33 36.7 C 71 16 124/66 100 08/01/21 02:36 36.6 C 73 18 134/69 97 Laboratory Results Short CBC 08/01/21 Range/Units 07:45 WBC 4.26 L (4.8-10.8) K/uL Hgb 10.0 L D (12.0-16.0) g/dL Hct 29.4 L (37-47) % Plt Count 77 L (130-400) K/uL BMP 08/01/21 07:45 Sodium 139 Potassium 3.9 Chloride 112 H Carbon Dioxide 22 BUN 5 L Creatinine 0.72 Glucose 97 Calcium 8.2 L Medications Administered Current Inpatient Medications Acetaminophen (Acetaminophen 325 Mg Tab) 650 mg PO Q4H PRN PRN Reason: Pain or Fever Stop: 08/29/21 21:48 Diclofenac Sodium (Diclofenac Sod 1% Gel 100 Gm Tube) 2 gm EXT HS PRN PRN Reason: Pain Stop: 08/30/21 20:59 Heparin Sodium (Porcine) (Heparin 100 Unit/Ml 5ml Flush) 5 ml FLUSH PRN PRN PRN Reason: Flush Stop: 08/30/21 19:39 Last Admin: 08/01/21 12:25 Dose: 5 ml Documented by: Potassium Chloride/Dextrose/Sod Cl (D5nss + 20meq Kcl) 20 meq in 1,000 mls @ 125 mls/hr IV .Q8H AILEEN Stop: 08/29/21 21:59 Last Infusion: 08/01/21 11:47 Dose: Infused Documented by: Losartan Potassium (Losartan Potassium 25 Mg Tab) 25 mg PO QAM AILEEN Stop: 08/30/21 08:59 Last Admin: 08/01/21 09:05 Dose: 25 mg Documented by: Magnesium Oxide (Magnesium Oxide 400 Mg Tab) 400 mg PO BID AILEEN Stop: 08/29/21 21:48 Last Admin: 08/01/21 09:05 Dose: 400 mg Documented by: Miscellaneous Information (Pharmacist Discharge Med Rec Consult) 1 ea N/A UD PRN PRN Reason: Consult Stop: 08/29/21 21:48 Nitroglycerin (Nitroglycerin Sl 0.4 Mg/Tab Tab) 0.4 mg SL UD PRN PRN Reason: Chest Pain Stop: 08/29/21 21:48 Ondansetron HCl (Ondansetron Inj 2 Mg/Ml 2 Ml Vial) 4 mg IV Q6H PRN PRN Reason: Nausea Stop: 08/29/21 21:48 Oxycodone HCl (Oxycodone Hcl Ir 5 Mg Tab (Immediate Release)) 5 mg PO Q4 PRN PRN Reason: Pain, Moderate Stop: 08/13/21 21:48 Pantoprazole Sodium (Pantoprazole 40 Mg Tab) 40 mg PO QAM [facility] Stop: 08/30/21 08:59 Last Admin: 08/01/21 09:05 Dose: 40 mg Documented by: Polyethylene Glycol (Polyethylene (Miralax) 17 Gm Pack) 17 gm PO DAILY PRN PRN Reason: Constipation Stop: 08/29/21 21:48 Sennosides (Senna 8.6 Mg Tab) 8.6 mg PO [facility] Stop: 08/29/21 21:48 Last Admin: 08/01/21 09:00 Dose: Not Given Documented by: (1) Altered mental status Altered mental status type: disorientation Qualified Code(s): R41.0 - Disorientation, unspecified
--- NOTE | 2021-08-02 07:25 | Discharge Summary ---
Date of Service August 02, 2021 Admission HPI Per Admitting Provider DICTATED BY:Gonzalo Cortes MD CHIEF COMPLAINT: Confusion. HISTORY OF PRESENT ILLNESS: This 66-year-old female with past medical history significant for mild aortic stenosis, history of retinal vein occlusion of left eye, seasonal allergic rhinitis, osteoarthritis, degenerative disk disease, history of acute angle-closure glaucoma. The patient currently recently diagnosed with metastatic endometrial cancer, stage IVB, received 3 cycles of neoadjuvant chemotherapy and after that she underwent surgery on 06/28/2020 total abdominal hysterectomy, bilateral salpingo-oophorectomy. Currently back on chemo, last chemo was on 07/19/2021.Today the patient was walking with her around 2:00 p.m. when patient got confused. It happened in May after first chemo, but it was short-lived, but today it did not get better and she was brought to the ER. In the ER, CT of the head was okay. Could not do CTA because she is allergic to IV dye. Potassium 2.8 and magnesium 1.1. ER talk ed to the [place] neurologist that recommended to work up with EEG, MRI scan and also other metabolic encephalopathy. Currently, the patient seems to be much improved as per the family, and daughter in the room. Currently, knows her , knows her daughter's name. Alert, oriented x 3. Somewhat hard of hearing, but answering appropriately, feeling cold in blankets. Moves all extremities. As per , there is no fever or chills. No nausea, no vomiting, no complaints of chest pain or shortness of breath. Somewhat constipated. Denies any blood in stools. Normal bladder movements. No hematuria, no blood in the stools. Otherwise, ambulating fine. Appetite is okay. No complaint of headache. No runny nose, no sore throat. No belly pain. Currently, stating resting comfortably and hemodynamically stable. Admission Exam Per Admitting Provider GENERAL: The patient is of moderate build, not in acute distress. VITAL SIGNS: Temperature 36.9, pulse 80, respiratory rate 16, blood pressure 121/52, oxygen 96% on room air. HEENT: Pupils equal, round and reactive to light. Oral mucosa moist. NECK: No JVD, no neck masses. CARDIOVASCULAR: S1 and S2 heard. Regular rate and rhythm. No murmur, no gallop. RESPIRATORY SYSTEM: Normal AP diameter. No accessory muscle use. No wheezing, no crackles. ABDOMEN: Soft, bowel sounds present, nontender, no distention. CENTRAL NERVOUS SYSTEM: Alert and oriented x 3. Obeys simple commands. Insight is good. Power 5/5 in all extremities. Sensation is intact. Coordination of movements normal. Extraocular muscles intact. Speech is clear. No facial droop. EXTREMITIES: Bilateral lower extremity edema present, no erythema seen. Principal Diagnosis Altered mental status-improved to baseline, anemia with pancytopenia status post 2 unit of blood transfusion, stress for metastatic endometrial cancer on chemotherapy Discharge Exam Sitting at the edge of the bed without any symptoms Constitutional + ill appearing and average body habitus Eyes PERRL, conjunctivae normal, anicteric sclerae ENMT external ear and nose normal, oropharynx normal Neck trachea midline, no thyromegaly Respiratory no respiratory distress Auscultation: lungs clear to auscultation bilaterally; no crackles Cardiovascular Rate/Rhythm: regular rate and regular rhythm; not tachycardic Heart Sounds: normal S1 and normal S2; no murmur Extremities: + edema (Trace edema bilaterally) Gastrointestinal (Abdomen) Inspection/Auscultation: normal bowel sounds; abdomen not distended Percussion/Palpation: abdomen soft; abdomen nontender Psychiatric A+Ox3, euthymic affect Lymphatic no cervical or axillary lymphadenopathy Discharge Data Allergies Allergy/AdvReac Type Severity Reaction Status Date / Time erythromycin base Allergy Mild NAUSEA/VOMI Verified 07/30/21 21:04 TTING Consultations 07/30/21 19:36 ED Decision to Admit Stat 07/31/21 08:00 Consult Neurology Routine Ordered Studies 07/30/21 18:23 CT head/brain wo con Stat 07/30/21 21:49 MR brain wo/w con Urgent US carotid doppler BI Routine Hospital Course (1) Altered mental status: Presented with acute confusion following chemo Has had similar presentation with chemo before Neuro symptoms suggestive of TIA versus stroke Has had EEG, CT scan and MRI, echocardiogram to rule out source of any stroke Appreciate neurology input and recommendation Mental status has been at baseline She will be discharged home this afternoon (2) Pancytopenia: Has pancytopenia secondary to chemotherapy and is complicated by stage IV metastatic uterine cancer Hemoglobin dropped to 6.4 on admission Status post 2 units of blood transfusion and hemoglobin went up to 10.0 Will repeat H&H this afternoon and if stable will be discharged home (3) Endometrial cancer: Has stage IV metastatic endometrial cancer Under care of oncologist and has been getting chemotherapy Was advised to keep up with a follow-up appointment for continued chemo as per oncologist (4) Aortic stenosis: No significant aortic stenosis and no significant cardiac symptoms Will be discharged home this afternoon Total Time Total Time Spent Total Time Spent (In Minutes): 35 minutes Discharge Plan Discharge Items Patient Disposition: Home - Self-Care Reason For Visit: CONFUSION Discharge Diagnosis: Altered mental status-improved to baseline, anemia with pancytopenia status post 2 unit of blood transfusion, stress for metastatic endometrial cancer on chemotherapy Condition on Discharge: Fair Activity: Resume your previous activity Non-emergency contact: Primary Care Provider Call non-emergency contact if: you have any medication questions and your symptoms worsen Follow-up/Referrals: Carlos Low MD [Primary Care Provider] - (Date & Time 08/05/2021 12:00 PM Provider Carlos Low MD Department Family [facility] ) Diet: Regular Addtl Attending Provider Instructions: Please take precautions to avoid falls No change in new medications Please keep appointments with your healthcare providers Pending Studies at Discharge: No Stand-Alone Forms: [facility] [place], Smoking Cessation Medications and DC Order Prescriptions: New magnesium oxide 400 mg (241.3 mg magnesium) Tablet 400 mg PO BID Qty: 60 RF: 0 Continued omeprazole 20 mg Capsule,Delayed Release(Dr/Ec) 20 mg PO QAM RF: 0 furosemide 20 mg tablet 20 mg PO QAM RF: 0 multivitamin Tablet 1 tab PO DAILY RF: 0 celecoxib 200 mg capsule 200 mg PO DAILY PRN (Reason: Pain) RF: 0 cholecalciferol (vitamin D3) [Vitamin D3] 25 mcg (1,000 unit) Tablet 25 mcg PO DAILY RF: 0 potassium chloride 20 mEq tablet,ER particles/crystals 20 meq PO QAM RF: 0 Discharge Orders: Discharge Order (Routine); Ordered 08/01/21 Ordered By: Vicente Louis/Other Patient Handouts: Cancer Care- Controlling Diarrhea, Hypomagnesemia Dc Admission Data Admit Date/Time: 07/30/21 20:57 Attending Provider: Vicente Ortiz Admit Provider: Gonzalo Cortes Primary Care Provider: Carlos Low Other Providers: Gonzalo Cortes ; Lore Hinojosa ; Reg Gómez ; Lore Ulloa ; Nikolas Chase Other Interventions: Discharge Summary Assessment (RN) Last Done: 08/01/21 12:59
== END 2021-08-01 15:09 | disposition home or self-care (01) | DRG 947 ==
LOC: ED 17:53 → 2W 20:57

== ENCOUNTER 2022-03-08 00:12 | Observation (INO) ==
[2022-03-08 00:43] LABS: Basophils # (auto) 0.07 K/uL (0-0.2); Basophils % (auto) 0.5 %; Eosinophils % (auto) 2.3 %; Hematocrit (blood only) 39.3 % (34.1-44.9); Hemoglobin 13.3 g/dl (12.0-16.0); Immature Granulocytes # (auto) 0.05 K/uL (0.00-0.02); Immature Granulocytes % (auto) 0.4 %; Lymphocytes % (auto) 28.1 %; Mean Corpuscular Hemoglobin 31.6 pg (25.0-34.0); Mean Corpuscular Hgb Conc 33.8 g/dL (32.0-36.0); Mean Corpuscular Volume 93.3 fL (80.0-100.0); Mean Platelet Volume 9.9 fL (9.4-12.3); Monocytes # (auto) 0.86 K/uL (0.24-0.82); Monocytes % (auto) 6.7 %; Neutrophils # (auto) 7.94 K/uL (1.4-6.5); Platelet Count 335 K/uL (130-400); RDW Coefficient of Variation 13.2 % (11.5-14.5); RDW Standard Deviation 45.1 fL (36.4-46.3); Red Blood Count 4.21 M/uL (3.93-5.22); White Blood Count 12.82 K/ul (4.8-10.8)
[2022-03-08] MEDS ORDERED: diphenhydrAMINE 50 MG/ML VIAL IV STA (00:44)
[2022-03-08] MEDS ORDERED: FUROSEMIDE 40 MG/4 ML VIAL IV ONE (00:44)
--- NOTE | 2022-03-08 00:47 | Emergency Department Note ---
History of Present Illness General Chief complaint: Shortness of Breath/Dyspnea Stated complaint: SHORTNESS OF BREATH Time Seen by Provider: 03/08/22 00:20 Source: patient Mode of arrival: wheelchair Limitations: no limitations History of Present Illness Provider complaint: Increased shortness of breath This is a 58-year-old female presents emergency room due to increased shortness of breath. Patient states she first began noticing symptoms 10 days ago. She denies fevers or chills. States no other cough or URI symptoms. Shortness of breath is progressed and is worse with laying down. And also worse with any additional exertion and she has some mild accompanying chest tightness. Patient denies nausea, vomiting, abdominal pain. She denies any leg swelling. Patient with a history of endometrial cancer. She finished chemotherapy and surgery earlier in the year. She is now getting surveillance CAT scans. Home Medications Medication Instructions Recorded Confirmed Type omeprazole 20 mg capsule,delayed 20 mg PO QAM 05/20/18 07/30/21 History release celecoxib 200 mg capsule 200 mg PO DAILY PRN Pain 07/30/21 07/30/21 History furosemide 20 mg tablet 20 mg PO QAM 07/30/21 07/30/21 History multivitamin 1 tab PO DAILY 07/30/21 07/30/21 History potassium chloride 20 mEq 20 meq PO QAM 07/30/21 07/30/21 History tablet,extended release(part/cryst) Vitamin B-12 500 mcg PO DAILY 03/08/22 03/08/22 History Vitamin D3 125 mcg PO DAILY 03/08/22 03/08/22 History diclofenac sodium 1 % topical gel 2 g topical QID PRN Pain 03/08/22 03/08/22 History losartan 25 mg tablet 25 mg PO DAILY 03/08/22 03/08/22 History Allergies Allergy/AdvReac Type Severity Reaction Status Date / Time erythromycin base Allergy Mild NAUSEA/VOMI Verified 07/30/21 21:04 TTING Past Med/Surg History Medical History (Updated 03/09/22 @ 05:22 by Sadaf Torres DO) GERD (gastroesophageal reflux disease) Osteoarthritis Pleural effusion, left Surgical History History of cataract surgery LEFT 06/13/18: was given 2mg of versed Hx of dilation and curettage Hx of reduction of closed dislocation RIGHT WRIST Hx of tonsillectomy Social History Smoking Status: Never smoker Second Hand Exposure: No; Hx Alcohol Use: Yes Alcohol type: beer Hx Substance Use: No Preferred Language: Ghanaian Communication Ability: Effective Silver Service Waiter Required: No Beliefs That Will Affect Care: None marital status: Current Living Situation: Spouse Current Living Situation Comment: Lives at home with Feels Safe at Home: Yes Assistive Devices: Cane Review of Systems A total of 10 systems reviewed and were otherwise negative All systems reviewed & are unremarkable except as noted in HPI & below Physical Exam Vital Signs Vital Signs - 24 hr 03/08/22 00:15 03/08/22 00:12 03/08/22 00:12 Temperature 36.5 C Temperature Source Temporal Artery Scan Pulse Rate 106 H Pulse Rate [Left Finger] 102 H Pulse Rate from SpO2 Sensor Respiratory Rate 28 H 24 Respiratory Effort / Characteristics Labored Blood Pressure 175/79 H Blood Pressure Mean 111 Pulse Oximetry 93 94 Oxygen Delivery Method Room Air Room Air Room Air Oxygen Flow Rate 94 Sepsis New/Unexplained Change in Mental Status N/A Sepsis Action Taken by Nursing No Action Required 03/08/22 01:31 03/08/22 02:00 03/08/22 02:30 Temperature Temperature Source Pulse Rate 97 H 94 H 96 H Pulse Rate [Left Finger] Pulse Rate from SpO2 Sensor 95 H Respiratory Rate 30 H 28 H 26 H Respiratory Effort / Characteristics Blood Pressure 132/74 136/85 143/80 H Blood Pressure Mean 93 102 101 Pulse Oximetry 94 92 92 Oxygen Delivery Method Room Air Room Air Room Air Oxygen Flow Rate Sepsis New/Unexplained Change in Mental Status Sepsis Action Taken by Nursing 03/08/22 03:00 03/08/22 04:00 Temperature Temperature Source Pulse Rate 92 H 91 H Pulse Rate [Left Finger] Pulse Rate from SpO2 Sensor 92 H 90 Respiratory Rate 19 26 H Respiratory Effort / Characteristics Blood Pressure 152/97 H 154/95 H Blood Pressure Mean 115 114 Pulse Oximetry 92 92 Oxygen Delivery Method Room Air Oxygen Flow Rate Sepsis New/Unexplained Change in Mental Status Sepsis Action Taken by Nursing GENERAL: alert, unwell appearing, well nourished, mild distress, non-toxic EYE EXAM: normal conjunctiva, PERRL and EOM's grossly intact OROPHARYNX: no exudate, no erythema, lips, buccal mucosa, and tongue normal and mucous membranes are moist NECK: supple, no nuchal rigidity, no adenopathy, non-tender LUNGS: Normal chest wall mechanics, no w/r/r, decreased breath sounds on left, port noted right ant/sup chest wall HEART: no murmurs, S1 normal and S2 normal ABDOMEN: abdomen soft, non-tender, normo-active bowel sounds, no masses, no rebound or guarding. BACK: Back is symmetrical on inspection and there is no deformity, no midline tenderness, no CVA tenderness. SKIN: no rashes and no bruising UPPER EXTREMITIES: upper extremities are grossly normal. FROM, nml pulses b/l. LOWER EXTREMITIES: No pitting edema. FROM, nml pulses b/l. NEURO EXAM: Normal sensorium, cranial nerves II-XII grossly intact, normal s peech, no gross weakness of arms, no gross weakness of legs. Gross sensation intact. Course Course 032: Patient and family updated at bedside. We had extensive discussion regarding need for additional treatment and care as an inpatient. We discussed thoracentesis at bedside. At this time given patient has been stable and has no reported short of breath, she would prefer to wait for pulmonology evaluation and for them to perform the thoracentesis in the morning. I feel this is reasonable given it is already anglesmith helper hours. I did advise her that should her pain or breathing worsen while here in the emergency room, I would perform the thoracentesis at bedside myself. Administered Medications Acetaminophen (Acetaminophen 325 Mg Tab) 650 mg PO Q4H PRN PRN Reason: Pain or Fever Stop: 04/07/22 06:27 Last Admin: 03/08/22 16:09 Dose: 650 mg Documented By: SUREKHA Losartan Potassium (Losartan Potassium 25 Mg Tab) 25 mg PO DAILY AILEEN Stop: 04/07/22 08:59 Last Admin: 03/08/22 08:34 Dose: 25 mg Documented By: PELON Multivitamins (Multivitamin Tab) 1 tab PO DAILY AILEEN Stop: 04/07/22 08:59 Last Admin: 03/08/22 08:34 Dose: 1 tab Documented By: PELON Naproxen (Naproxen 250 Mg Tab) 250 mg PO BID PRN PRN Reason: pain Stop: 04/07/22 16:38 Last Admin: 03/08/22 19:23 Dose: 250 mg Documented By: ROSCOE Pantoprazole Sodium (Pantoprazole 40 Mg Tab) 40 mg PO QAM AILEEN Stop: 04/07/22 08:59 Last Admin: 03/08/22 08:34 Dose: 40 mg Documented By: PELON Discontinued Medications Diphenhydramine HCl (Diphenhydramine 50 Mg/Ml Vial) 25 mg IV NOW STA Stop: 03/08/22 00:45 Last Admin: 03/08/22 00:50 Dose: 25 mg Documented By: CHRIS Furosemide (Furosemide 40 Mg/4 Ml Vial) 40 mg IV ONE ONE Stop: 03/08/22 00:45 Last Admin: 03/08/22 00:51 Dose: 40 mg Documented By: CHRIS Magnesium Sulfate/Dextrose (Magnesium Sulfate / D5w) 1 gm in 100 mls @ 100 ml s/hr IV NOW STA Stop: 03/08/22 03:24 Last Infusion: 03/08/22 03:50 Dose: 0 mls/hr Documented By: Admin: 03/08/22 02:49 Dose: 100 mls/hr Documented By: CHRIS Acetaminophen (Ofirmev) 1,000 mg in 100 mls @ 400 mls/hr IV NOW STA Stop: 03/08/22 03:38 Last Infusion: 03/08/22 04:27 Dose: 0 mls/hr Documented By: Admin: 03/08/22 03:51 Dose: 400 mls/hr Documented By: CHRIS Magnesium Sulfate/Dextrose (Magnesium Sulfate / D5w) 1 gm in 100 mls @ 50 mls/hr IV ONE ONE Stop: 03/08/22 06:58 Last Infusion: 03/08/22 07:52 Dose: 0 mls/hr Documented By: Admin: 03/08/22 05:09 Dose: 50 mls/hr Documented By: CHRIS Albumin Human (Albumin 25%) 12.5 gm in 50 mls @ 50 mls/hr IV ONE ONE Stop: 03/08/22 16:14 Last Infusion: 03/08/22 18:43 Dose: 0 mls/hr Documented By: Admin: 03/08/22 17:43 Dose: 50 mls/hr Documented By: AVA Ioversol (Optiray 320 500ml) 108 ml IV ONCE ONE Stop: 03/08/22 02:27 Last Admin: 03/08/22 02:27 Dose: 108 ml Documented By: ANSELMO Ketorolac Tromethamine (Ketorolac Tromethamine 15 Mg/Ml Vial) 10 mg IV NOW ONE Stop: 03/08/22 03:25 Last Admin: 03/08/22 03:51 Dose: 10 mg Documented By: LH Methylprednisolone (Methylprednisolone 40 Mg/Ml Vial) 40 mg IV NOW STA Stop: 03/08/22 00:45 Last Admin: 03/08/22 00:49 Dose: 40 mg Documented By: LH Potassium Chloride (Potassium Chloride Pwd 20 Meq Pack) 40 meq PO NOW STA Stop: 03/08/22 05:00 Last Admin: 03/08/22 06:25 Dose: 40 meq Documented By: LH Medical Decision Making Differential Diagnosis Differential diagnoses includes but is not limited to pneumonia, bronchitis, COPD/Asthma exacerbation, pneumothorax, pulmonary embolism, congestive heart failure, acute coronary syndrome Medical Records Attestation: I reviewed the patient's medical records. Home Medications Current Medication List: was personally reviewed by me Laboratory Data Attestation: I reviewed the patient's lab results. Result diagrams: 03/08/22 00:30 03/08/22 00:30 Lab Results 03/08/22 03/08/22 03/08/22 Range/Units 00:30 00:30 00:30 WBC 12.82 H (4.8-10.8) K/ul RBC 4.21 (3.93-5.22) M/uL Hgb 13.3 (12.0-16.0) g/dl Hct 39.3 (34.1-44.9) % MCV 93.3 (80.0-100.0) fL MCH 31.6 (25.0-34.0) pg MCHC 33.8 (32.0-36.0) g/dL RDW Std Deviation 45.1 (36.4-46.3) fL RDW Coeff of Khushbu 13.2 (11.5-14.5) % Plt Count 335 (130-400) K/uL MPV 9.9 (9.4-12.3) fL Immature Gran % (Auto) 0.4 % Neut % (Auto) 62.0 % Lymph % (Auto) 28.1 % [place] % (Auto) 6.7 % Eos % (Auto) 2.3 % Baso % (Auto) 0.5 % Neut # (Auto) 7.94 H (1.4-6.5) K/uL Lymph # (Auto) 3.60 H (1.2-3.4) K/uL [place] # (Auto) 0.86 H (0.24-0.82) K/uL Eos # (Auto) 0.30 (0-0.50) K/uL Baso # (Auto) 0.07 (0-0.2) K/uL Immature Gran # (Auto) 0.05 H (0.00-0.02) K/uL PT 10.4 (9.0-12.0) Seconds INR 1.0 (0.9-1.1) D-Dimer 880 H* (0-500) ug/L FEU Sodium 134 L (136-145) mmol/L Potassium 3.5 (3.5-5.1) mmol/L Chloride 96 L (98-107) mmol/L Carbon Dioxide 30 (21-32) mmol/L Anion Gap 8 (3-11) BUN 14 (6-23) mg/dl Creatinine 0.90 (0.6-1.2) mg/dl Est Cr Clr Drug Dosing 56.1 ml/min Est GFR ( Amer) 76.1 ml/min Est GFR (Non-Af Amer) 65.7 ml/min BUN/Creatinine Ratio 15.6 (10-20) Glucose 105 H (70-99(Fasting)) mg/dl Calcium 9.7 (8.5-10.1) mg/dl Magnesium 1.6 L (1.7-2.4) mg/dl Total Bilirubin 0.3 (0.2-1.0) mg/dl AST 22 (13-39) U/L ALT 17 (7-52) U/L Alkaline Phosphatase 69 (34-104) U/L Troponin I High Sens 9.8 (0-14) pg/ml B-Natriuretic Peptide (0-100) pg/ml Total Protein 7.4 (6.0-8.3) gm/dl Albumin 4.0 (3.4-5.0) gm/dl Globulin 3.4 (2.5-4.0) gm/dl Albumin/Globulin Ratio 1.2 (0.9-2) Lipase 4 L (11-82) U/L TSH (0.300-4.500) uIu/ml Urine Color Urine Appearance (Clear) Urine pH (4.5-7.5) Ur Specific [place] (1.000-1.030) Urine Protein (Negative) Urine Glucose (UA) (Negative) Urine Ketones (Negative) Urine Blood (Negative) Urine Nitrite (Negative) Urine Bilirubin (Negative) Urine Urobilinogen (Negative) Ur Leukocyte Esterase (Negative) Urine WBC (Auto) (0-5) /hpf Urine RBC (Auto) (0-4) /hpf U Hyaline Cast (Auto) (0-5) /lpf U Epithel Cells (Auto) (0-5) /lpf Urine Bacteria (Auto) (Negative) SARS-CoV-2 (PCR) (Negative) Influenza Type A (PCR) (Neg) Influenza Type B (PCR) (Neg) RSV (RT-PCR) (Neg) 03/08/22 03/08/22 03/08/22 Range/Units 00:30 00:30 00:30 WBC (4.8-10.8) K/ul RBC (3.93-5.22) M/uL Hgb (12.0-16.0) g/dl Hct (34.1-44.9) % MCV (80.0-100.0) fL MCH (25.0-34.0) pg MCHC (32.0-36.0) g/dL RDW Std Deviation (36.4-46.3) fL RDW Coeff of Khushbu (11.5-14.5) % Plt Count (130-400) K/uL MPV (9.4-12.3) fL Immature Gran % (Auto) % Neut % (Auto) % Lymph % (Auto) % [place] % (Auto) % Eos % (Auto) % Baso % (Auto) % Neut # (Auto) (1.4-6.5) K/uL Lymph # (Auto) (1.2-3.4) K/uL [place] # (Auto) (0.24-0.82) K/uL Eos # (Auto) (0-0.50) K/uL Baso # (Auto) (0-0.2) K/uL Immature Gran # (Auto) (0.00-0.02) K/uL PT (9.0-12.0) Seconds INR (0.9-1.1) D-Dimer (0-500) ug/L FEU Sodium (136-145) mmol/L Potassium (3.5-5.1) mmol/L Chloride (98-107) mmol/L Carbon Dioxide (21-32) mmol/L Anion Gap (3-11) BUN (6-23) mg/dl Creatinine (0.6-1.2) mg/dl Est Cr Clr Drug Dosing ml/min Est GFR ( Amer) ml/min Est GFR (Non-Af Amer) ml/min BUN/Creatinine Ratio (10-20) Glucose (70-99(Fasting)) mg/dl Calcium (8.5-10.1) mg/dl Magnesium (1.7-2.4) mg/dl Total Bilirubin (0.2-1.0) mg/dl AST (13-39) U/L ALT (7-52) U/L Alkaline Phosphatase (34-104) U/L Troponin I High Sens (0-14) pg/ml B-Natriuretic Peptide 41 (0-100) pg/ml Total Protein (6.0-8.3) gm/dl Albumin (3.4-5.0) gm/dl Globulin (2.5-4.0) gm/dl Albumin/Globulin Ratio (0.9-2) Lipase (11-82) U/L TSH 3.821 (0.300-4.500) uIu/ml Urine Color Urine Appearance (Clear) Urine pH (4.5-7.5) Ur Specific [place] (1.000-1.030) Urine Protein (Negative) Urine Glucose (UA) (Negative) Urine Ketones (Negative) Urine Blood (Negative) Urine Nitrite (Negative) Urine Bilirubin (Negative) Urine Urobilinogen (Negative) Ur Leukocyte Esterase (Negative) Urine WBC (Auto) (0-5) /hpf Urine RBC (Auto) (0-4) /hpf U Hyaline Cast (Auto) (0-5) /lpf U Epithel Cells (Auto) (0-5) /lpf Urine Bacteria (Auto) (Negative) SARS-CoV-2 (PCR) NEGATIVE (Negative) Influenza Type A (PCR) Negative (Neg) Influenza Type B (PCR) Negative (Neg) RSV (RT-PCR) Negative (Neg) 03/08/22 Range/Units 00:56 WBC (4.8-10.8) K/ul RBC (3.93-5.22) M/uL Hgb (12.0-16.0) g/dl Hct (34.1-44.9) % MCV (80.0-100.0) fL MCH (25.0-34.0) pg MCHC (32.0-36.0) g/dL RDW Std Deviation (36.4-46.3) fL RDW Coeff of Khushbu (11.5-14.5) % Plt Count (130-400) K/uL MPV (9.4-12.3) fL Immature Gran % (Auto) % Neut % (Auto) % Lymph % (Auto) % [place] % (Auto) % Eos % (Auto) % Baso % (Auto) % Neut # (Auto) (1.4-6.5) K/uL Lymph # (Auto) (1.2-3.4) K/uL [place] # (Auto) (0.24-0.82) K/uL Eos # (Auto) (0-0.50) K/uL Baso # (Auto) (0-0.2) K/uL Immature Gran # (Auto) (0.00-0.02) K/uL PT (9.0-12.0) Seconds INR (0.9-1.1) D-Dimer (0-500) ug/L FEU Sodium (136-145) mmol/L Potassium (3.5-5.1) mmol/L Chloride (98-107) mmol/L Carbon Dioxide (21-32) mmol/L Anion Gap (3-11) BUN (6-23) mg/dl Creatinine (0.6-1.2) mg/dl Est Cr Clr Drug Dosing ml/min Est GFR ( Amer) ml/min Est GFR (Non-Af Amer) ml/min BUN/Creatinine Ratio (10-20) Glucose (70-99(Fasting)) mg/dl Calcium (8.5-10.1) mg/dl Magnesium (1.7-2.4) mg/dl Total Bilirubin (0.2-1.0) mg/dl AST (13-39) U/L ALT (7-52) U/L Alkaline Phosphatase (34-104) U/L Troponin I High Sens (0-14) pg/ml B-Natriuretic Peptide (0-100) pg/ml Total Protein (6.0-8.3) gm/dl Albumin (3.4-5.0) gm/dl Globulin (2.5-4.0) gm/dl Albumin/Globulin Ratio (0.9-2) Lipase (11-82) U/L TSH (0.300-4.500) uIu/ml Urine Color Yellow Urine Appearance Cloudy A (Clear) Urine pH 6.0 (4.5-7.5) Ur Specific [place] 1.015 (1.000-1.030) Urine Protein Negative (Negative) Urine Glucose (UA) Negative (Negative) Urine Ketones Negative (Negative) Urine Blood 1+ H (Negative) Urine Nitrite Negative (Negative) Urine Bilirubin Negative (Negative) Urine Urobilinogen Negative (Negative) Ur Leukocyte Esterase 2+ H (Negative) Urine WBC (Auto) 10-30 H (0-5) /hpf Urine RBC (Auto) 0-4 (0-4) /hpf U Hyaline Cast (Auto) 1-5 (0-5) /lpf U Epithel Cells (Auto) >30 H (0-5) /lpf Urine Bacteria (Auto) 2+ H (Negative) SARS-CoV-2 (PCR) (Negative) Influenza Type A (PCR) (Neg) Influenza Type B (PCR) (Neg) RSV (RT-PCR) (Neg) Imaging Data My Impression: X-ray: I interpreted the following studies. Chest: A single view study of the chest was reviewed and was negative for cardiomegaly, focal infiltrate, pulmo nary edema, or wide mediastinum. Large left pleural effusion noted. Radiologist's Impression: CTA chest: No pulmonary emboli. Large left-sided pleural effusion with near complete collapse of the left lung and mass-effect on the mediastinum. Clear right lung. Radiologist: Bora Adams MD CT abdomen pelvis with contrast: Degraded by motion artifact. Wide necked incisional hernias in the ventral abdomen containing normal-appearing loops of bowel. No evidence of acute bowel inflammation or obstruction. Trace layering free fluid in the pelvis is of uncertain etiology. Large left-sided pleural effusion exerting mass-effect as described on the concurrent chest CT. Disc herniation at L4-L5. Radiologist: Bora Adams MD ECG Data Attestation: I personally reviewed and interpreted this ECG as follows: Indication: + SOB/dyspnea Rate (beats per minute): 97 Rhythm: + normal sinus ECG Intervals/blocks: + Normal QRS and + Normal QT ECG [place]: + Normal ECG ST segments: + Nonspecific ST abnormalities ECG Findings: + PVCs MDM Narrative An order was placed for continuous cardiac monitoring. The monitor shows a rate of 88__ with _normal sinus_ rhythm. This is a 58-year-old female presents emergency department due to concern for increased trouble breathing over the last 10 to 12 days. Patient was afebrile and hemodynamically stable, oxygen saturations were in the low 90s. Patient did prefer to be sitting upright as she is it was apparent and she reported that she had accompanying orthopnea as well as dyspnea on exertion. Labs drawn and sent and chest x-ray immediately performed at bedside which did reveal large left pleural effusion, likely contributing to her symptoms. Due to patient's history of malignancy, we discussed additional CT imaging. Patient was pretreated as a precaution given prior history of hives with IV dye, and she was sent for CT imaging. Pleural effusion again demonstrated, no obvious infection, no PE. Given patient remained stable, we did discuss the need for pleurocentesis. After bedside discussion, we agreed that unless her symptoms worsen or change, this could be performed by pulmonology in the morning who would be ultimately managing her effusion and possible need for indwelling pleural catheter. Patient remain hemodynamically stable and did not require any oxygen while monitored in the emergency room. Case discussed with hospitalist for additional evaluation and management. Impression & Plan Dyspnea, Endometrial cancer, Pleural effusion, left Discharge Plan Visit Data Chief Complaint: Shortness of Breath/Dyspnea Stated Complaint: SHORTNESS OF BREATH ED Provider: Sadaf Torres Discharge Problem: Dyspnea, Endometrial cancer, Pleural effusion, left Patient Disposition: Admitted As Inpatient Discharge Instructions Interventions: ED Discharge Assessment Last Done: 03/08/22 06:29
[2022-03-08 01:13] LABS: Troponin I High Sensitivity 9.8 pg/ml (0-14)
[2022-03-08 01:39] LABS: Influenza A virus by PCR Negative (Neg); Influenza B virus by PCR Negative (Neg); RSV by PCR Negative (Neg); SARS CoV2 RNA(COVID-19) Ceph NEGATIVE (Negative)
[2022-03-08 01:41] LABS: Appearance Urine Cloudy (Clear); Bacteria Urine Automated 2+ (Negative); Bilirubin Urine Negative (Negative); Blood Urine 1+ (Negative); Color Urine Yellow; Epithelial Cell Urine Auto >30 /lpf (0-5); Glucose Urine UA Negative (Negative); Ketones Urine Negative (Negative); Leukocyte Esterase Urine 2+ (Negative); Nitrite Urine Negative (Negative); Protein Urine Negative (Negative); Specific Gravity Urine 1.015 (1.000-1.030); Urobilinogen Urine Negative (Negative)
[2022-03-08 02:05] LABS: Albumin Globulin Ratio 1.2 (0.9-2); BUN Creatinine Ratio 15.6 (10-20); Bilirubin,Total 0.3 mg/dl (0.2-1.0); Calcium 9.7 mg/dl (8.5-10.1); Creatinine Clr Calc Pharmacy 56.1 ml/min; Est GFR (African American) 76.1 ml/min; Est GFR (Non-African American) 65.7 ml/min; Globulin 3.4 gm/dl (2.5-4.0); Magnesium 1.6 mg/dl (1.7-2.4); Potassium 3.5 mmol/L (3.5-5.1); Total Protein 7.4 gm/dl (6.0-8.3)
[2022-03-08 02:09] LABS: Prothrombin Time 10.4 Seconds (9.0-12.0)
[2022-03-08 02:20] LABS: D Dimer 880 ug/L FEU (0-500)
[2022-03-08] MEDS ORDERED: MAGNESIUM SULFATE / D5W 1 GM/100 ML BAG IV STA (02:25)
[2022-03-08] MEDS ORDERED: OPTIRAY 320 500ml IV ONE (02:26)
[2022-03-08 03:01] LABS: RBC Urine Automated 0-4 /hpf (0-4)
[2022-03-08] MEDS ORDERED: ACETAMINOPHEN 1,000 MG/100 ML VIAL IV STA (03:24)
[2022-03-08] MEDS ORDERED: KETOROLAC TROMETHAMINE 15 MG/ML VIAL IV ONE (03:24)
--- NOTE | 2022-03-08 03:53 | History & Physical Report ---
Date of Service March 08, 2022 Assessment & Plan (1) Pleural effusion: Plan: Pleural effusion left Rule out malignancy hx metastatic endometrial cancer status post surgery/chemotherapy (Patient at risk for progression of disease with documented rise in outpatient C A 125 as per outpatient G Oncology note 2 months ago.) hypertension, slightly elevated secondary to discomfort mild aortic stenosis OBS Medical telemetry Pulmonology consult Re: Left pleural effusion N.p.o. until patient seen by pulmonology in anticipation of procedure. DVT prophylaxis with Lovenox subcu Full code Patient family requesting updates providers. Mr. Aj Lobo (), contact #[phone] Ms. Juliet Diop (daughter), contact #[phone] Text document was generated using [employer] voice recognition software. It may contain grammatical or spelling errors. Kindly contact undersigned for clarification of any documentation item in question. History of Present Illness Chief Complaint: Shortness of breath Primary Care Provider: Carlos Low MD History obtained from patient, family, and records. Medical history significant for hypertension, mild aortic stenosis, PVD, metastatic endometrial cancer status post surgery/chemotherapy. Last confinement July 2021 for confusion attributed to chemotherapy. 10 days history of shortness of breath worse on exertion. Chest tightness, nonproductive cough, no unusual fluid retention. No known sick contacts. Patient completed COVID-19 vaccination. Patient brought by family to ER for evaluation for worsening symptoms. 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 Allergies Allergy/AdvReac Type Severity Reaction Status Date / Time erythromycin base Allergy Mild NAUSEA/VOMI Verified 07/30/21 21:04 TTING Home Medications Medication Instructions Recorded Confirmed Type omeprazole 20 mg capsule,delayed 20 mg PO QAM 05/20/18 07/30/21 History release celecoxib 200 mg capsule 200 mg PO DAILY PRN Pain 07/30/21 07/30/21 History furosemide 20 mg tablet 20 mg PO QAM 07/30/21 07/30/21 History multivitamin 1 tab PO DAILY 07/30/21 07/30/21 History potassium chloride 20 mEq 20 meq PO QAM 07/30/21 07/30/21 History tablet,extended release(part/cryst) Vitamin B-12 500 mcg PO DAILY 03/08/22 03/08/22 History Vitamin D3 125 mcg PO DAILY 03/08/22 03/08/22 History diclofenac sodium 1 % topical gel 2 g topical QID PRN Pain 03/08/22 03/08/22 History losartan 25 mg tablet 25 mg PO DAILY 03/08/22 03/08/22 History Past Med/Surg History Medical History GERD (gastroesophageal reflux disease) Osteoarthritis Surgical History History of cataract surgery LEFT 06/13/18: was given 2mg of versed Hx of dilation and curettage Hx of reduction of closed dislocation RIGHT WRIST Hx of tonsillectomy Social History Smoking Status: Never smoker Second Hand Exposure: No; Hx Alcohol Use: No Hx Substance Use: No Preferred Language: Latvian Communication Ability: Effective 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 Customs Required: No Beliefs That Will Affect Care: None marital status: Current Living Situation: Spouse Current Living Situation Comment: Lives at home with Feels Safe at Home: Yes Assistive Devices: Walker Review of Systems Review of Systems: As per HPI, all other systems reviewed and negative Physical Exam Physical Exam: GENERAL: Pleasant, occasionally has to stop talking to catch her breath, episodic tachypnea SKIN: Normal color, warm HEENT: [place] palpebral conjunctivae, no ptosis, dry buccal mucosa NECK : Supple, no tenderness CHEST : Decreased breath sounds left, no tenderness HEART : RRR, systolic murmur best heard over second right intercostal space ABDOMEN: Some distention, nontender EXTREMITIES : Minimal LE swelling, no LE tenderness, no other conspicuous de formities noted NEUROLOGIC : Coherent, no facial asymmetry, mild hearing impairment, no other gross focality Results & Data Results & Data ([facility]) Vital Signs (Past 12 Hours) Vital Signs Temp Pulse Pulse Resp BP Pulse Ox O2 Del Method 03/08/22 03:00 92 H 19 152/97 H 92 Room Air 03/08/22 02:30 96 H 26 H 143/80 H 92 Room Air 03/08/22 02:00 94 H 28 H 136/85 92 Room Air 03/08/22 01:31 97 H 30 H 132/74 94 Room Air 03/08/22 00:12 102 H 24 94 Room Air 03/08/22 00:12 Room Air 03/08/22 00:15 36.5 C 106 H 28 H 175/79 H 93 Room Air O2 Flow Rate 03/08/22 03:00 03/08/22 02:30 03/08/22 02:00 03/08/22 01:31 03/08/22 00:12 03/08/22 00:12 94 03/08/22 00:15 Laboratory Results Laboratory Results WBC 12.82 K/ul (4.8-10.8) H 03/08/22 00:30 RBC 4.21 M/uL (3.93-5.22) 03/08/22 00:30 Hgb 13.3 g/dl (12.0-16.0) 03/08/22 00:30 Hct 39.3 % (34.1-44.9) 03/08/22 00:30 MCV 93.3 fL (80.0-100.0) 03/08/22 00:30 MCH 31.6 pg (25.0-34.0) 03/08/22 00:30 MCHC 33.8 g/dL (32.0-36.0) 03/08/22 00:30 RDW Std Deviation 45.1 fL (36.4-46.3) 03/08/22 00:30 RDW Coeff of Khushbu 13.2 % (11.5-14.5) 03/08/22 00:30 Plt Count 335 K/uL (130-400) 03/08/22 00:30 MPV 9.9 fL (9.4-12.3) 03/08/22 00:30 Immature Gran % (Auto) 0.4 % 03/08/22 00:30 Neut % (Auto) 62.0 % 03/08/22 00:30 Lymph % (Auto) 28.1 % 03/08/22 00:30 [place] % (Auto) 6.7 % 03/08/22 00:30 Eos % (Auto) 2.3 % 03/08/22 00:30 Baso % (Auto) 0.5 % 03/08/22 00:30 Neut # (Auto) 7.94 K/uL (1.4-6.5) H 03/08/22 00:30 Lymph # (Auto) 3.60 K/uL (1.2-3.4) H 03/08/22 00:30 [place] # (Auto) 0.86 K/uL (0.24-0.82) H 03/08/22 00:30 Eos # (Auto) 0.30 K/uL (0-0.50) 03/08/22 00:30 Baso # (Auto) 0.07 K/uL (0-0.2) 03/08/22 00:30 Immature Gran # (Auto) 0.05 K/uL (0.00-0.02) H 03/08/22 00:30 PT 10.4 Seconds (9.0-12.0) 03/08/22 00:30 INR 1.0 (0.9-1.1) 03/08/22 00:30 D-Dimer 880 ug/L FEU (0-500) H* 03/08/22 00:30 Sodium 134 mmol/L (136-145) L 03/08/22 00:30 Potassium 3.5 mmol/L (3.5-5.1) 03/08/22 00:30 Chloride 96 mmol/L (98-107) L 03/08/22 00:30 Carbon Dioxide 30 mmol/L (21-32) 03/08/22 00:30 Anion Gap 8 (3-11) 03/08/22 00:30 BUN 14 mg/dl (6-23) 03/08/22 00:30 Creatinine 0.90 mg/dl (0.6-1.2) 03/08/22 00:30 Est Cr Clr Drug Dosing 56.1 ml/min 03/08/22 00:30 Est GFR ( Amer) 76.1 ml/min 03/08/22 00:30 Est GFR (Non-Af Amer) 65.7 ml/min 03/08/22 00:30 BUN/Creatinine Ratio 15.6 (10-20) 03/08/22 00:30 Glucose 105 mg/dl (70-99(Fasting)) H 03/08/22 00:30 Calcium 9.7 mg/dl (8.5-10.1) 03/08/22 00:30 Magnesium 1.6 mg/dl (1.7-2.4) L 03/08/22 00:30 Total Bilirubin 0.3 mg/dl (0.2-1.0) 03/08/22 00:30 AST 22 U/L (13-39) 03/08/22 00:30 ALT 17 U/L (7-52) 03/08/22 00:30 Alkaline Phosphatase 69 U/L (34-104) 03/08/22 00:30 Troponin I High Sens 9.8 pg/ml (0-14) 03/08/22 00:30 Total Protein 7.4 gm/dl (6.0-8.3) 03/08/22 00:30 Albumin 4.0 gm/dl (3.4-5.0) 03/08/22 00:30 Globulin 3.4 gm/dl (2.5-4.0) 03/08/22 00:30 Albumin/Globulin Ratio 1.2 (0.9-2) 03/08/22 00:30 Lipase 4 U/L (11-82) L 03/08/22 00:30 TSH 3.821 uIu/ml (0.300-4.500) 03/08/22 00:30 Urine Color Yellow 03/08/22 00:56 Urine Appearance Cloudy (Clear) A 03/08/22 00:56 Urine pH 6.0 (4.5-7.5) 03/08/22 00:56 Ur Specific [place] 1.015 (1.000-1.030) 03/08/22 00:56 Urine Protein Negative (Negative) 03/08/22 00:56 Urine Glucose (UA) Negative (Negative) 03/08/22 00:56 Urine Ketones Negative (Negative) 03/08/22 00:56 Urine Blood 1+ (Negative) H 03/08/22 00:56 Urine Nitrite Negative (Negative) 03/08/22 00:56 Urine Bilirubin Negative (Negative) 03/08/22 00:56 Urine Urobilinogen Negative (Negative) 03/08/22 00:56 Ur Leukocyte Esterase 2+ (Negative) H 03/08/22 00:56 Urine WBC (Auto) 10-30 /hpf (0-5) H 03/08/22 00:56 Urine RBC (Auto) 0-4 /hpf (0-4) 03/08/22 00:56 U Hyaline Cast (Auto) 1-5 /lpf (0-5) 03/08/22 00:56 U Epithel Cells (Auto) >30 /lpf (0-5) H 03/08/22 00:56 Urine Bacteria (Auto) 2+ (Negative) H 03/08/22 00:56 SARS-CoV-2 (PCR) NEGATIVE (Negative) 03/08/22 00:30 Influenza Type A (PCR) Negative (Neg) 03/08/22 00:30 Influenza Type B (PCR) Negative (Neg) 03/08/22 00:30 RSV (RT-PCR) Negative (Neg) 03/08/22 00:[address] chest initial read: No pulmonaryemboli. Large left-sided pleural effusion with near complete collapse of the left lung and mass-effect on the mediastinum. Clear right lung CT abdomen pelvis initial read: Degraded bymotion artifact. Wide neck incisional hernias in the ventral abdomen containing normalappearing loops of bowel. No evidence of acute bowel inflammation or obstruction. Trace layering free fluid in the pelvis is of uncertain etiology. Large left-sided pleural effusion exerting mass-effect as described on the concurrent chest CT. Disc herniation at L4-L5. EKG as per my interpretation :Rate 95, NSR, normal axis, diffuse T wave flattening, PVCs
[2022-03-08] MEDS ORDERED: MAGNESIUM SULFATE / D5W 1 GM/100 ML BAG IV ONE (04:59)
[2022-03-08] MEDS ORDERED: POTASSIUM CHLORIDE PWD 20 MEQ PACK PO STA (04:59)
[2022-03-08] MEDS ORDERED: DICLOFENAC SOD 1% GEL 100 GM TUBE EXT PRN (05:09)
[2022-03-08] MEDS ORDERED: oxyCODONE HCL IR 5 MG TAB (IMMEDIATE RELEASE) PO PRN (05:10)
[2022-03-08] MEDS ORDERED: PROMETHAZINE HCL 12.5 MG in SODIUM CHLORIDE 0.9% 50 ML IV PRN (06:28)
[2022-03-08] MEDS ORDERED: ACETAMINOPHEN 325 MG TAB PO PRN (06:28)
[2022-03-08] MEDS ORDERED: LORazepam 0.5 MG TAB PO PRN (06:28)
--- NOTE | 2022-03-08 07:08 | CT Scan Report ---
CT ANGIOGRAPHY OF THE CHEST, PULMONARY EMBOLUS PROTOCOL CLINICAL HISTORY: Shortness of breath. Cancer history. COMPARISON STUDY: Chest radiograph performed earlier today. TECHNIQUE: Following IV administration of 108 mL of Optiray, helical axial images of the chest were o btained utilizing the pulmonary embolus protocol. Maximal intensity projections and sagittal and cor onal reformats were viewed on an independent 3D workstation. IV contrast was administered without co mplication. Automated exposure control was utilized for the study. A dose lowering technique was ut ilized adhering to the principles of ALARA. CT DOSE: 661.49 mGy.cm FINDINGS: No pulmonary emboli are identified. There is no thoracic aortic dissection. Size of the he art is normal. There is no pericardial effusion. No pathologically enlarged thoracic lymph nodes are noted. A large left pleural effusion occupies the majority of the left hemithorax. There may be mild thickening with a left hemithorax shown best shown on the abdominal CT. There is subtotal compressive atelectasis of the left lung and associated rightward mediastinal shift. There is minimal aeration o f the left upper lobe. No consolidation within the right lung is noted. There are no suspicious pulmo nary nodules within the right lung. No suspicious lesions within the bony thorax are noted. IMPRESSION: 1. No pulmonary emboli identified. 2. Large left pleural effusion occupying the majority of the left hemithorax with subtotal left lung collapse. This is suspicious for a malignant effusion. ACT 112: Negative or not required by law. Electronically signed by: Gigi Lloyd M.D. 03/08/2022 7:06 AM
--- NOTE | 2022-03-08 07:16 | CT Scan Report ---
CT OF THE ABDOMEN AND PELVIS WITH CONTRAST CLINICAL HISTORY: Shortness of breath, hernia, hx cancer COMPARISON STUDY: None. TECHNIQUE: Following IV administration of 108 mL of Optiray, axial images of the abdomen and pelvis w ere obtained from the lung bases to the proximal femurs. Images were reviewed in the axial, sagittal, and coronal planes. IV contrast was administered without complication. Automated exposure control w as utilized for the study. A dose lowering technique was utilized adhering to the principles of ANDRIY Real. FINDINGS: A large left pleural effusion is better depicted on the chest CT which will be reported sep arately. Compressive atelectasis of the left lower lobe is noted. This exam is mildly compromised by motion artifact. No pneumatosis, free air or portal venous gas is present. There are no hepatic lesio ns. The adrenal glands, kidneys and pancreas are unremarkable. There is a probable subcentimeter left renal cyst. There is no hydronephrosis. A small amount of ascites within the right lower quadrant is noted. There is an umbilical and ventral hernias are noted. These contain loops of small and large b owel without resultant bowel obstruction. Multiple small clustered left upper quadrant omental nodule s are noted. Major vasculature is grossly patent. There is no hydronephrosis. No suspicious lesions w ithin the visualized skeletal structures are present. IMPRESSION: 1. Multiple clustered omental nodules suggestive of peritoneal carcinomatosis. This finding will be c alled/faxed to ordering provider at time of dictation. 2. Bowel containing adjacent ventral and umbilical hernias. No resultant bowel obstruction. 3. Large left pleural effusion, likely malignant. This is better depicted on the chest CT. ACT 112: Negative or not required by law. Electronically signed by: Gigi Lloyd M.D. 03/08/2022 7:14 AM
--- NOTE | 2022-03-08 07:23 | XRay Report ---
XR chest 1V portable CLINICAL HISTORY: Shortness of breath. COMPARISON STUDY: No previous studies for comparison. FINDINGS: Right internal jugular [id number] is in place. A large left pleural effusion is noted. T here is subtotal left lung collapse with minimal left upper lobe aeration. This effusion has signific ant mass effect with rightward displacement of mediastinal structures. No consolidation within the ri ght lung is noted. There is no pneumothorax. Subtle interstitial thickening within the right lung. IMPRESSION: Large left pleural effusion with subtotal left lung collapse and rightward mediastinal d isplacement. ACT 112: Negative or not required by law. Electronically signed by: Gigi Lloyd M.D. 03/08/2022 7:22 AM
[2022-03-08] MEDS: PANTOprazole 40 MG TAB PO SCH (08:34)
[2022-03-08] MEDS: LOSARTAN POTASSIUM 25 MG TAB PO SCH (08:34)
[2022-03-08] MEDS: MULTIVITAMIN TAB PO SCH (08:34)
[2022-03-08] MEDS ORDERED: ENOXAPARIN INJ 40 MG/0.4 ML SYR SQ SCH (09:00)
--- NOTE | 2022-03-08 13:48 | Pulmonary Consultation ---
Date of Consultation March 08, 2022 Assessment & Plan (1) Pleural effusion, left: We will proceed with pleural procedure to drain the fluid. Likely will proceed with pigtail catheter and if there is recurrence of the fluid in the future, will need Pleurx. Would like to rule out infection first. (2) Endometrial cancer: Follows with oncology. Consider inpatient palliative consult given what appears to be metastatic endometrial cancer. History of Present Illness Reason for Consultation: Large left pleural effusion Attending Physician: Paramjit Melendez MD History of Present Illness 66-year-old female with history of aortic stenosis, metastatic and neuro menstrual cancer and hypertension who presented to the hospital due to increasing shortness of breath with exertion. Occasional cough. No recent fevers, chills or night sweats. She had a CT of her chest which revealed a very large left pleural effusion which was thought to be related to her malignancy. She is currently saturating in the low 90s on room air. Platelet count is 335,000. INR is 1.0. She is not on any anticoagulants or antiplatelet medications. Allergies Allergy/AdvReac Type Severity Reaction Status Date / Time erythromycin base Allergy Mild NAUSEA/VOMI Verified 07/30/21 21:04 TTING Home Medications Medication Instructions Recorded Confirmed Type omeprazole 20 mg capsule,delayed 20 mg PO QAM 05/20/18 07/30/21 History release celecoxib 200 mg capsule 200 mg PO DAILY PRN Pain 07/30/21 07/30/21 History furosemide 20 mg tablet 20 mg PO QAM 07/30/21 07/30/21 History multivitamin 1 tab PO DAILY 07/30/21 07/30/21 History potassium chloride 20 mEq 20 meq PO QAM 07/30/21 07/30/21 History tablet,extended release(part/cryst) Vitamin B-12 500 mcg PO DAILY 03/08/22 03/08/22 History Vitamin D3 125 mcg PO DAILY 03/08/22 03/08/22 History diclofenac sodium 1 % topical gel 2 g topical QID PRN Pain 03/08/22 03/08/22 History losartan 25 mg tablet 25 mg PO DAILY 03/08/22 03/08/22 History Patient History Medical History (Updated 03/08/22 @ 13:46 by Petr Cantu MD) GERD (gastroesophageal reflux disease) Osteoarthritis Pleural effusion, left Surgical History History of cataract surgery LEFT 06/13/18: was given 2mg of versed Hx of dilation and curettage Hx of reduction of closed dislocation RIGHT WRIST Hx of tonsillectomy Social History Smoking Status: Never smoker Second Hand Exposure: No; Hx Alcohol Use: No Hx Substance Use: No Preferred Language: Nauruan Communication Ability: Effective Communication Ability Comment: speak louder Link Assembler Required: No Beliefs That Will Affect Care: None marital status: Current Living Situation: Spouse Current Living Situation Comment: Lives at home with Other Information That Helps Us Care for You: No (missed out on cruise this week) Feels Safe at Home: Yes Safety Concerns: Feels Safe At This Time Assistive Devices: Other Assistive Devices Comment: walking stick Review of Systems Review of Systems: All systems reviewed & are unremarkable except as noted in HPI & below Physical Exam Physical Exam: Constitutional: Patient appears to be of their stated age. Patient is in no apparent distress. Patient is well-developed. Eyes: Pupils are equal round and reactive to light. Conjunctivae are normal. Anicteric sclera. Ears nose, mouth and throat: Mallampati class 2. Normal posterior oropharynx. Uvula is midline. Neck: Trachea is midline. Visual inspection is normal. Respiratory: Diminished on the left. Clear elsewhere. Cardiovascular: Regular rate and rhythm. No murmurs. No edema. Gastrointestinal: Normal bowel sounds, soft, nontender and nondistended. No hepatosplenomegaly noted. Musculoskeletal: No cyanosis. Patient is able to move all extremities. Strength is 5 out of 5 in the upper and lower extremities. Skin: No rashes, warm dry and intact. Neurologic: No obvious focal neurological deficits seen. Psychiatric: Alert and oriented x3 with a euthymic affect. Results & Data Results & Data ([facility]) Vital Signs (Past 12 Hours) Vital Signs Pulse Pulse Resp BP BP Pulse Ox Pulse Ox 03/08/22 11:07 100 H 22 145/87 H 91 03/08/22 08:12 86 15 134/101 H 91 03/08/22 08:07 90 03/08/22 08:07 87 16 134/101 H 93 03/08/22 06:30 91 H 18 91 03/08/22 06:00 83 19 138/74 96 03/08/22 05:30 79 23 138/84 87 L 03/08/22 04:30 90 23 91 03/08/22 04:30 150/76 H 03/08/22 04:00 91 H 26 H 154/95 H 92 03/08/22 03:00 92 H 19 152/97 H 92 03/08/22 02:30 96 H 26 H 143/80 H 92 03/08/22 02:00 94 H 28 H 136/85 92 O2 Del Method O2 Del Method O2 Flow Rate 03/08/22 11:07 Room Air 03/08/22 08:12 Room Air 03/08/22 08:07 Room Air 03/08/22 08:07 Room Air 03/08/22 06:30 03/08/22 06:00 Nasal Cannula 2 03/08/22 05:30 03/08/22 04:30 03/08/22 04:30 03/08/22 04:00 03/08/22 03:00 Room Air 03/08/22 02:30 Room Air 03/08/22 02:00 Room Air PG Care Time/CCT Total # of Minutes Spent Total Time Spent with Patient: Total time spent is greater than 50% in coordination of care (as documented) at patient's floor/unit and/or counseling patient: Coding Level of Care Code 86001 Initial Inpt Care Lvl 3 Diagnoses Pleural effusion, left J90 Endometrial cancer C54.1
--- NOTE | 2022-03-08 14:18 | Electrocardiogram Report ---
Test Reason : Blood Pressure : / mmHG Vent. Rate : 097 BPM Atrial Rate : 097 BPM P-R Int : 154 ms QRS Dur : 068 ms QT Int : 332 ms P-R-T Axes : 052 034 103 degrees QTc Int : 421 ms Sinus rhythm with occasional Premature ventricular complexes Nonspecific T wave abnormality Abnormal ECG When compared with ECG of 30-JUL-2021 17:59, QT has shortened Confirmed by Cisco Early ([id number]) on 03/08/2022 2:18:10 PM Referred By: REFERRED SELF Confirmed By:Cisco Early
--- NOTE | 2022-03-08 15:10 | Procedure Note ---
Procedure Note Date of Service March 08, 2022 Note PIGTAIL CATHETER PLACEMENT NOTE: Procedure: Pigtail Catheter Chest Tube Placement Indication: Massive left pleural effusion Anesthesia: 10 mL lidocaine 1% Written consent was obtained and placed on the chart. Timeout was done prior to the procedure. Prior to procedure, chest x-ray films were reviewed by myself and demonstrated a large left pleural effusion. A time-out was completed verifying correct patient, procedure, site, positioning, and implant(s) or special equipment if applicable. Utilizing bedside ultrasound, chest wall was evaluated for location for optimal chest tube placement. Location between the fifth and sixth ribs were marked on the skin using gentle pressure. The left sided chest wall was prepped with chlorhexidine and draped in the typical sterile fashion. 10 mL of 1% Lidocaine without epinephrine was used to anesthetize the skin down to the dorsal surface of the fifth rib. Karthik-colored fluid return confirmed entry into the pleural space. Lidocaine was injected into the pleural space for increased anesthetization. Introducer needle on syringe was inserted in perpendicular fashion taking care to ride just above the dorsal surface of the fifth rib. Entry into the pleural space was heralded by karthik-colored fluid return into the syringe while under gentle aspiration. Guide wire was advanced into the pleural space without resistance and the introducer needle was subsequently removed. Scalpel was used to make small incision of the superficial tissue, parallel to the direction of the rib anatomy. Dilator was advanced uneventfully over the guide wire into the pleural space. 14 [place] Pigtail Catheter was inserted into the pleural space. Inner introducer and guide wire were removed. Drain was immediately connected to pre-prepared AMINA pleur-evac system. Pigtail was sutured securely in place and sterile dressing was applied. Chest tube was placed to -20 cmH2O suction. Patient tolerated procedure well. Blood Loss: Minimal Complications: None Post procedure Chest X-ray pending. Coding CPT Codes Pulmonary/Thoracic - Pulmonary and Thoracic: 37295 Tube thoracostomy ([id number]) [facility] [place] Procedure Codes (Charges) Pulmonary/Thoracic Procedure 1: Pulmonary and Thoracic: 19980 Tube thoracostomy
[2022-03-08] MEDS ORDERED: ALBUMIN 25% 12.5 GM/50 ML VIAL IV ONE (15:15)
--- NOTE | 2022-03-08 15:34 | XRay Report ---
XR chest 1V portable CLINICAL HISTORY: s/p left pigtail TECHNIQUE: Single frontal radiograph of the chest was obtained. Comparison: Comparison is made to chest radiograph 03/08/2022 FINDINGS: Interval placement of a left pleural catheter. A port catheter is stable. The cardiac silhouette is s table, partially obscured. There is a moderate left pleural effusion. This report was decreased from prior exam. No pneumothorax is seen. Associated atelectasis is noted. IMPRESSION: Moderate left pleural effusion, decreased from prior exam. No evidence of pneumothorax. ACT 112: Negative or not required by law. Electronically signed by: Robbie Solis M.D. 03/08/2022 3:33 PM
--- NOTE | 2022-03-08 16:34 | Hospitalist Progress Note ---
Date of Service March 08, 2022 Assessment & Plan (1) Pleural effusion, left: Plan: - concern for malignancy given history of metastatic endometrial cancer and elevation of outpatient tumor markers - also CT-AP findings with carcinomatosis - satting ok on RA for now - pulm consulted for thoracentesis to rule out infection and fluid cytology - follow up studies (2) Endometrial cancer: Plan: - concern for progression with carcinomatosis and left sided pleural effusion - follows with outpatient onc - s/p chemo - monitoring for now - will need follow up of results of thoracentesis (3) Aortic stenosis: Plan: - noted (4) GERD (gastroesophageal reflux disease): Plan: - continue PPI (5) HTN (hypertension): Plan: - continue home meds as tolerated Plan DVT ppx: lovenox Code Status: Full Code Dispo: Telemetry Paramjit Melendez MD [facility] Medicine Admission and Anticipated Discharge Date Admission Date: March 08, 2022 Subjective Patient with h/o aortic stenosis, metastatic endometrial cancer s/p surgery and chemo, HTN presented with progressive SOB, found to have large left sided pleural effusion. CT-AP showed omental carcinomatosis. With pleural effusion and CT findings, concern for spread of cancer. Pulm consulted for thoracentesis to rule out infection and fluid cytology. Patient feels ok today. Reports shortness of breath but denies chest pain, n/v/d, abdominal pain, vaginal bleeding, dysuria, fever or chills. Review of Systems Review of Systems: All systems reviewed & are unremarkable except as noted in Subjective Physical Exam Physical Exam: GENERAL: Pleasant, mild conversational dyspnea SKIN: Normal color, warm HEENT: [place] palpebral conjunctivae, no ptosis, dry buccal mucosa NECK : Supple, no tenderness CHEST : Decreased breath sounds left, no tenderness HEART : RRR, systolic murmur best heard over second right intercostal space ABDOMEN: Some distention, nontender EXTREMITIES : Minimal LE swelling, no LE tenderness, no other conspicuous deformities noted NEUROLOGIC : Coherent, no facial asymmetry, mild hearing impairment, no other gross focality Results & Data Results & Data ([facility]) Vital Signs (Past 12 Hours) Vital Signs Pulse Pulse Resp BP BP Pulse Ox Pulse Ox 03/08/22 15:30 94 H 20 93 03/08/22 15:30 136/84 03/08/22 15:15 134/86 03/08/22 15:15 94 H 21 95 03/08/22 15:04 85 18 94 03/08/22 15:04 139/77 03/08/22 15:00 87 20 94 03/08/22 15:00 144/84 H 03/08/22 14:54 89 20 96 03/08/22 14:54 149/89 H 03/08/22 14:53 98 H 23 03/08/22 14:00 98 H 21 95 03/08/22 14:00 144/80 H 03/08/22 13:51 98 H 22 93 03/08/22 13:51 175/85 H 03/08/22 13:42 103 H 20 95 03/08/22 13:42 164/89 H 03/08/22 13:00 74 90 03/08/22 12:30 88 18 92 03/08/22 12:00 104 H 23 90 03/08/22 11:30 113 H 22 90 03/08/22 11:07 100 H 20 90 03/08/22 11:07 145/87 H 03/08/22 11:04 105 H 03/08/22 10:06 92 03/08/22 08:30 93 03/08/22 08:30 139/100 03/08/22 08:00 93 03/08/22 08:00 134/101 H 03/08/22 07:49 93 03/08/22 07:49 143/99 H 03/08/22 07:30 93 03/08/22 07:03 91 03/08/22 11:07 100 H 22 145/87 H 91 03/08/22 08:12 86 15 134/101 H 91 03/08/22 08:07 90 03/08/22 08:07 87 16 134/101 H 93 03/08/22 06:30 91 H 18 91 03/08/22 06:00 83 19 138/74 96 03/08/22 05:30 79 23 138/84 87 L 03/08/22 04:30 90 23 91 03/08/22 04:30 150/76 H O2 Del Method O2 Del Method O2 Flow Rate 03/08/22 15:30 03/08/22 15:30 03/08/22 15:15 03/08/22 15:15 03/08/22 15:04 03/08/22 15:04 03/08/22 15:00 03/08/22 15:00 03/08/22 14:54 03/08/22 14:54 03/08/22 14:53 03/08/22 14:00 03/08/22 14:00 03/08/22 13:51 03/08/22 13:51 03/08/22 13:42 03/08/22 13:42 03/08/22 13:00 03/08/22 12:30 03/08/22 12:00 03/08/22 11:30 03/08/22 11:07 03/08/22 11:07 03/08/22 11:04 03/08/22 10:06 03/08/22 08:30 03/08/22 08:30 03/08/22 08:00 03/08/22 08:00 03/08/22 07:49 03/08/22 07:49 03/08/22 07:30 03/08/22 07:03 03/08/22 11:07 Room Air 03/08/22 08:12 Room Air 03/08/22 08:07 Room Air 03/08/22 08:07 Room Air 03/08/22 06:30 03/08/22 06:00 Nasal Cannula 2 03/08/22 05:30 03/08/22 04:30 03/08/22 04:30 Diagnostic Findings Laboratory Results WBC 12.82 K/ul (4.8-10.8) H 03/08/22 00:30 RBC 4.21 M/uL (3.93-5.22) 03/08/22 00:30 Hgb 13.3 g/dl (12.0-16.0) 03/08/22 00:30 Hct 39.3 % (34.1-44.9) 03/08/22 00:30 MCV 93.3 fL (80.0-100.0) 03/08/22 00:30 MCH 31.6 pg (25.0-34.0) 03/08/22 00:30 MCHC 33.8 g/dL (32.0-36.0) 03/08/22 00:30 RDW Std Deviation 45.1 fL (36.4-46.3) 03/08/22 00:30 RDW Coeff of Khushbu 13.2 % (11.5-14.5) 03/08/22 00:30 Plt Count 335 K/uL (130-400) 03/08/22 00:30 MPV 9.9 fL (9.4-12.3) 03/08/22 00:30 Immature Gran % (Auto) 0.4 % 03/08/22 00:30 Neut % (Auto) 62.0 % 03/08/22 00:30 Lymph % (Auto) 28.1 % 03/08/22 00:30 [place] % (Auto) 6.7 % 03/08/22 00:30 Eos % (Auto) 2.3 % 03/08/22 00:30 Baso % (Auto) 0.5 % 03/08/22 00:30 Neut # (Auto) 7.94 K/uL (1.4-6.5) H 03/08/22 00:30 Lymph # (Auto) 3.60 K/uL (1.2-3.4) H 03/08/22 00:30 [place] # (Auto) 0.86 K/uL (0.24-0.82) H 03/08/22 00:30 Eos # (Auto) 0.30 K/uL (0-0.50) 03/08/22 00:30 Baso # (Auto) 0.07 K/uL (0-0.2) 03/08/22 00:30 Immature Gran # (Auto) 0.05 K/uL (0.00-0.02) H 03/08/22 00:30 PT 10.4 Seconds (9.0-12.0) 03/08/22 00:30 INR 1.0 (0.9-1.1) 03/08/22 00:30 D-Dimer 880 ug/L FEU (0-500) H* 03/08/22 00:30 Sodium 134 mmol/L (136-145) L 03/08/22 00:30 Potassium 3.5 mmol/L (3.5-5.1) 03/08/22 00:30 Chloride 96 mmol/L (98-107) L 03/08/22 00:30 Carbon Dioxide 30 mmol/L (21-32) 03/08/22 00:30 Anion Gap 8 (3-11) 03/08/22 00:30 BUN 14 mg/dl (6-23) 03/08/22 00:30 Creatinine 0.90 mg/dl (0.6-1.2) 03/08/22 00:30 Est Cr Clr Drug Dosing 56.1 ml/min 03/08/22 00:30 Est GFR ( Amer) 76.1 ml/min 03/08/22 00:30 Est GFR (Non-Af Amer) 65.7 ml/min 03/08/22 00:30 BUN/Creatinine Ratio 15.6 (10-20) 03/08/22 00:30 Glucose 105 mg/dl (70-99(Fasting)) H 03/08/22 00:30 Calcium 9.7 mg/dl (8.5-10.1) 03/08/22 00:30 Magnesium 1.6 mg/dl (1.7-2.4) L 03/08/22 00:30 Total Bilirubin 0.3 mg/dl (0.2-1.0) 03/08/22 00:30 AST 22 U/L (13-39) 03/08/22 00:30 ALT 17 U/L (7-52) 03/08/22 00:30 Alkaline Phosphatase 69 U/L (34-104) 03/08/22 00:30 Troponin I High Sens 9.8 pg/ml (0-14) 03/08/22 00:30 B-Natriuretic Peptide 41 pg/ml (0-100) 03/08/22 00:30 Total Protein 7.4 gm/dl (6.0-8.3) 03/08/22 00:30 Albumin 4.0 gm/dl (3.4-5.0) 03/08/22 00:30 Globulin 3.4 gm/dl (2.5-4.0) 03/08/22 00:30 Albumin/Globulin Ratio 1.2 (0.9-2) 03/08/22 00:30 Lipase 4 U/L (11-82) L 03/08/22 00:30 TSH 3.821 uIu/ml (0.300-4.500) 03/08/22 00:30 Urine Color Yellow 03/08/22:56 Urine Appearance Cloudy (Clear) A 03/08/22 00:56 Urine pH 6.0 (4.5-7.5) 03/08/22 00:56 Ur Specific [place] 1.015 (1.000-1.030) 03/08/22 00:56 Urine Protein Negative (Negative) 03/08/22 00:56 Urine Glucose (UA) Negative (Negative) 03/08/22 00:56 Urine Ketones Negative (Negative) 03/08/22 00:56 Urine Blood 1+ (Negative) H 03/08/22 00:56 Urine Nitrite Negative (Negative) 03/08/22 00:56 Urine Bilirubin Negative (Negative) 03/08/22 00:56 Urine Urobilinogen Negative (Negative) 03/08/22 00:56 Ur Leukocyte Esterase 2+ (Negative) H 03/08/22 00:56 Urine WBC (Auto) 10-30 /hpf (0-5) H 03/08/22 00:56 Urine RBC (Auto) 0-4 /hpf (0-4) 03/08/22 00:56 U Hyaline Cast (Auto) 1-5 /lpf (0-5) 03/08/22 00:56 U Epithel Cells (Auto) >30 /lpf (0-5) H 03/08/22 00:56 Urine Bacteria (Auto) 2+ (Negative) H 03/08/22 00:56 SARS-CoV-2 (PCR) NEGATIVE (Negative) 03/08/22 00:30 Influenza Type A (PCR) Negative (Neg) 03/08/22 00:30 Influenza Type B (PCR) Negative (Neg) 03/08/22 00:30 RSV (RT-PCR) Negative (Neg) 03/08/22 00:30 Impressions Abdomen/Pelvis CT 03/08/22 00:52 CT OF THE ABDOMEN AND PELVIS WITH CONTRAST CLINICAL HISTORY: Shortness of breath, hernia, hx cancer COMPARISON STUDY: None. TECHNIQUE: Following IV administration of 108 mL of Optiray, axial images of the abdomen and pelvis were obtained from the lung bases to the proximal femurs. Images were reviewed in the axial, sagittal, and coronal planes. IV contrast was administered without complication. Automated exposure control was utilized for the study. A dose lowering technique was utilized adhering to the principles of ALARA. FINDINGS: A large left pleural effusion is better depicted on the chest CT which will be reported separately. Compressive atelectasis of the left lower lobe is noted. This exam is mildly compromised by motion artifact. No pneumatosis, free air or portal venous gas is present. There are no hepatic lesions. The adrenal glands, kidneys and pancreas are unremarkable. There is a probable subcentimeter left renal cyst. There is no hydronephrosis. A small amount of ascites within the right lower quadrant is noted. There is an umbilical and ventral hernias are noted. These contain loops of small and large bowel without resultant bowel obstruction. Multiple small clustered left upper quadrant omental nodules are noted. Major vasculature is grossly patent. There is no hydronephrosis. No suspicious lesions within the visualized skeletal structures are present. IMPRESSION: 1. Multiple clustered omental nodules suggestive of peritoneal carcinomatosis. This finding will be called/faxed to ordering provider at time of dictation. 2. Bowel containing adjacent ventral and umbilical hernias. No resultant bowel obstruction. 3. Large left pleural effusion, likely malignant. This is better depicted on the chest CT. ACT 112: Negative or not required by law. Electronically signed by: Gigi Lloyd M.D. 03/08/2022 7:14 AM Chest CTA 03/08/22 00:52 CT ANGIOGRAPHY OF THE CHEST, PULMONARY EMBOLUS PROTOCOL CLINICAL HISTORY: Shortness of breath. Cancer history. COMPARISON STUDY: Chest radiograph performed earlier today. TECHNIQUE: Following IV administration of 108 mL of Optiray, helical axial images of the chest were obtained utilizing the pulmonary embolus protocol. Maximal intensity projections and sagittal and coronal reformats were viewed on an independent 3D workstation. IV contrast was administered without complication. Automated exposure control was utilized for the study. A dose lowering technique was utilized adhering to the principles of ALARA. CT DOSE: 661.49 mGy.cm FINDINGS: No pulmonary emboli are identified. There is no thoracic aortic dissection. Size of the heart is normal. There is no pericardial effusion. No pathologically enlarged thoracic lymph nodes are noted. A large left pleural effusion occupies the majority of the left hemithorax. There may be mild thickening with a left hemithorax shown best shown on the abdominal CT. There is subtotal compressive atelectasis of the left lung and associated rightward mediastinal shift. There is minimal aeration of the left upper lobe. No consolidation within the right lung is noted. There are no suspicious pulmonary nodules within the right lung. No suspicious lesions within the bony thorax are noted. IMPRESSION: 1. No pulmonary emboli identified. 2. Large left pleural effusion occupying the majority of the left hemithorax with subtotal left lung collapse. This is suspicious for a malignant effusion. ACT 112: Negative or not required by law. Electronically signed by: Gigi Lloyd M.D. 03/08/2022 7:06 AM Chest X-Ray 03/08/22 15:08 XR chest 1V portable CLINICAL HISTORY: s/p left pigtail TECHNIQUE: Single frontal radiograph of the chest was obtained. Comparison: Comparison is made to chest radiograph 03/08/2022 FINDINGS: Interval placement of a left pleural catheter. A port catheter is stable. The cardiac silhouette is stable, partially obscured. There is a moderate left pleural effusion. This report was decreased from prior exam. No pneumothorax is seen. Associated atelectasis is noted. IMPRESSION: Moderate left pleural effusion, decreased from prior exam. No evidence of pneumothorax. ACT 112: Negative or not required by law. Electronically signed by: Robbie Solis M.D. 03/08/2022 3:33 PM Medications Administered Current Inpatient Medications Acetaminophen (Acetaminophen 325 Mg Tab) 650 mg PO Q4H PRN PRN Reason: Pain or Fever Stop: 04/07/22 06:27 Last Admin: 03/08/22 16:09 Dose: 650 mg Diclofenac Sodium (Diclofenac Sod 1% Gel 100 Gm Tube) 2 gm EXT QID PRN; Protocol PRN Reason: Pain Stop: 04/07/22 05:08 Enoxaparin Sodium (Enoxaparin Inj 40 Mg/0.4 Ml Syr) 40 mg SQ QAM [facility] Stop: 04/07/22 08:59 Promethazine HCl 12.5 mg/ (Sodium Chloride) 50.5 mls @ 202 mls/hr IV Q6H PRN PRN Reason: Nausea And Vomiting Stop: 04/07/22 06:27 Lorazepam (Lorazepam 0.5 Mg Tab) 0.25 mg PO TID PRN PRN Reason: Anxiety Stop: 04/07/22 06:27 Losartan Potassium (Losartan Potassium 25 Mg Tab) 25 mg PO DAILY [facility] Stop: 04/07/22 08:59 Last Admin: 03/08/22 08:34 Dose: 25 mg Multivitamins (Multivitamin Tab) 1 tab PO DAILY [facility] Stop: 04/07/22 08:59 Last Admin: 03/08/22 08:34 Dose: 1 tab Oxycodone HCl (Oxycodone Hcl Ir 5 Mg Tab (Immediate Release)) 5 mg PO Q4H PRN PRN Reason: Pain Stop: 03/22/22 05:09 Pantoprazole Sodium (Pantoprazole 40 Mg Tab) 40 mg PO [facility] Stop: 04/07/22 08:59 Last Admin: 03/08/22 08:34 Dose: 40 mg
[2022-03-08] MEDS ORDERED: NAPROXEN 250 MG TAB PO PRN (16:39)
[2022-03-08 18:05] LABS: Total Protein Pleural Fluid 4.6 gm/dl
[2022-03-08 18:44] LABS: Appearance Pleural Fluid Slightly Hazy; Color Pleural Fluid Amber; RBC Pleural Fluid Auto 7000 /uL; Source Pleural Fluid Left Lung; WBC Pleural Fluid Auto 242 /uL
[2022-03-09] MEDS: LOSARTAN POTASSIUM 25 MG TAB PO SCH (07:34)
[2022-03-09] MEDS: MULTIVITAMIN TAB PO SCH (07:34)
[2022-03-09 08:16] LABS: Lymphocytes, Fluid 40 %; Mono,Macrophage,Mesothelial 20 %; Neutrophils, Fluid 5 %; Other Cells Pleural Cells 35 %
[2022-03-09 08:32] LABS: Basophils # (auto) 0.06 K/uL (0-0.2); Basophils % (auto) 0.6 %; Eosinophils # (auto) 0.23 K/uL (0-0.50); Eosinophils % (auto) 2.3 %; Hematocrit (blood only) 36.8 % (34.1-44.9); Hemoglobin 12.5 g/dl (12.0-16.0); Immature Granulocytes # (auto) 0.04 K/uL (0.00-0.02); Immature Granulocytes % (auto) 0.4 %; Lymphocytes # (auto) 2.02 K/uL (1.2-3.4); Lymphocytes % (auto) 20.6 %; Mean Corpuscular Hemoglobin 31.3 pg (25.0-34.0); Mean Platelet Volume 10.1 fL (9.4-12.3); Monocytes # (auto) 0.67 K/uL (0.24-0.82); Monocytes % (auto) 6.8 %; Neutrophils # (auto) 6.77 K/uL (1.4-6.5); Neutrophils % (auto) 69.3 %; Platelet Count 295 K/uL (130-400); RDW Coefficient of Variation 13.2 % (11.5-14.5); RDW Standard Deviation 44.7 fL (36.4-46.3); White Blood Count 9.79 K/ul (4.8-10.8)
[2022-03-09 08:42] LABS: Prothrombin Time 10.9 Seconds (9.0-12.0)
[2022-03-09] MEDS: PANTOprazole 40 MG TAB PO SCH (08:56)
[2022-03-09] MEDS ORDERED: ENOXAPARIN INJ 40 MG/0.4 ML SYR SQ SCH (09:00)
[2022-03-09 09:06] LABS: Albumin Globulin Ratio 1.3 (0.9-2); Albumin Level 3.5 gm/dl (3.4-5.0); BUN Creatinine Ratio 14.1 (10-20); Bilirubin,Total 0.5 mg/dl (0.2-1.0); Calcium 9.1 mg/dl (8.5-10.1); Creatinine Clr Calc Pharmacy 54.2 ml/min; Est GFR (African American) 74.2 ml/min; Globulin 2.8 gm/dl (2.5-4.0); Magnesium 1.7 mg/dl (1.7-2.4); Phosphorus 3.2 mg/dl (2.5-4.9); Potassium 3.5 mmol/L (3.5-5.1); Total Protein 6.3 gm/dl (6.0-8.3)
--- NOTE | 2022-03-09 10:36 | Pulmonology Progress Note ---
Date of Service March 09, 2022 Assessment & Plan (1) Pleural effusion, left: Plan: Patient with a left malignant pleural effusion based on pathology report. Official cytology is pending. Suspect secondary to endometrial cancer. Consider outpatient Pleurx catheter placement if fluid recurs quickly which is very likely. She has superimposed nodular opacities status post drainage from the x-ray today. Probable lymphangitic spread of cancer. I removed the catheter at bedside today without incident. Discussed with the hospitalist. Please discharge the patient home. Thank you. (2) Endometrial cancer: Plan: Follows with oncology. Admission and Anticipated Discharge Date Admission Date: March 08, 2022 Subjective Patient seen examined. Approximately 3.2 L of output from the chest tube since insertion yesterday. She is feeling much less short of breath. Minimal cough. No fevers, chills or night sweats. Review of Systems Review of Systems: All systems reviewed & are unremarkable except as noted in HPI & below Physical Exam Physical Exam: Constitutional: Patient appears to be of their stated age. Patient is in no apparent distress. Patient is well-developed. Eyes: Pupils are equal round and reactive to light. Conjunctivae are normal. Anicteric sclera. Ears nose, mouth and throat: Mallampati class 2. Normal posterior oropharynx. Uvula is midline. Neck: Trachea is midline. Visual inspection is normal. Respiratory: Diminished on the left. Clear elsewhere. Cardiovascular: Regular rate and rhythm. No murmurs. No edema. Gastrointestinal: Normal bowel sounds, soft, nontender and nondistended. No hepatosplenomegaly noted. Musculoskeletal: No cyanosis. Patient is able to move all extremities. Strength is 5 out of 5 in the upper and lower extremities. Skin: No rashes, warm dry and intact. Neurologic: No obvious focal neurological deficits seen. Psychiatric: Alert and oriented x3 with a euthymic affect. Results & Data Results & Data ([facility]) Vital Signs (Past 12 Hours) Vital Signs Temp Pulse Resp BP BP Pulse Ox O2 Del Method 03/09/22 08:00 Room Air 03/09/22 07:53 36.6 C 83 18 118/67 97 Room Air 03/09/22 03:15 36.6 C 86 18 120/74 95 Room Air 03/08/22 23:00 36.7 C 95 H 16 130/79 95 Room Air PG Care Time/CCT Total # of Minutes Spent Total Time Spent with Patient: Total time spent is greater than 50% in coordination of care (as documented) at patient's floor/unit and/or counseling patient: Coding Level of Care Code 80790 Subseq Hosp Care Lvl 2 Diagnoses Pleural effusion, left J90 Endometrial cancer C54.1
--- NOTE | 2022-03-09 10:38 | Procedure Note ---
Procedure Note Date of Service March 09, 2022 Note Prior to removal of chest tube, I turned the stopcock off. I removed the dressing without issue. Upon exhalation, I slowly withdrew the pigtail catheter. Patient tolerated the removal well. The catheter appeared to be intact. An occlusive dressing was placed over top of the incision site. No bleeding noted. Coding CPT Codes Pulmonary/Thoracic - Pulmonary and Thoracic: 61193 Remove lung catheter ([id number]) [facility] [place] Procedure Codes (Charges) Pulmonary/Thoracic Procedure 1: Pulmonary and Thoracic: 38583 Remove lung catheter
--- NOTE | 2022-03-09 11:46 | Discharge Summary ---
Date of Service March 09, 2022 Admission HPI Per Admitting Provider History obtained from patient, family, and records. Medical history significant for hypertension, mild aortic stenosis, PVD, metastatic endometrial cancer status post surgery/chemotherapy. Last confinement July 2021 for confusion attributed to chemotherapy. 10 days history of shortness of breath worse on exertion. Chest tightness, nonproductive cough, no unusual fluid retention. No known sick contacts. Patient completed COVID-19 vaccination. Patient brought by family to ER for evaluation for worsening symptoms. 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 Admission Exam Per Admitting Provider GENERAL: Pleasant, occasionally has to stop talking to catch her breath, episodic tachypnea SKIN: Normal color, warm HEENT: [place] palpebral conjunctivae, no ptosis, dry buccal mucosa NECK : Supple, no tenderness CHEST : Decreased breath sounds left, no tenderness HEART : RRR, systolic murmur best heard over second right intercostal space ABDOMEN: Some distention, nontender EXTREMITIES : Minimal LE swelling, no LE tenderness, no other conspicuous deformities noted NEUROLOGIC : Coherent, no facial asymmetry, mild hearing impairment, no other gross focality Principal Diagnosis left sided pleural effusion - likely malignant from metastatic endometrial cancer Discharge Exam GENERAL: Pleasant, mild conversational dyspnea SKIN: Normal color, warm HEENT: [place] palpebral conjunctivae, no ptosis, dry buccal mucosa NECK : Supple, no tenderness CHEST : mild crackles throughout left lung, R lung CTA, no tenderness HEART : RRR, systolic murmur best heard over second right intercostal space ABDOMEN: Some distention, nontender EXTREMITIES : Minimal LE swelling, no LE tenderness, no other conspicuous deformities noted NEUROLOGIC : Coherent, no facial asymmetry, mild hearing impairment, no other gross focality Discharge Data Allergies Allergy/AdvReac Type Severity Reaction Status Date / Time erythromycin base Allergy Mild NAUSEA/VOMI Verified 07/30/21 21:04 TTING Consultations 03/08/22 03:41 ED Decision to Admit Stat 03/08/22 06:28 Consult Pulmonology Routine Ordered Studies 03/08/22 00:52 CT abd pelvis IV con only Urgent CT angio chest PE protocol Urgent 03/08/22 14:10 sono, invasive monitoring [US point of care ultrasound] Urgent Hospital Course (1) Pleural effusion, left: - concern for malignancy given history of metastatic endometrial cancer and elevation of outpatient tumor markers - also CT-AP findings with carcinomatosis - satting ok on RA for now - pulm consulted for thoracentesis to rule out infection and fluid cytology - s/p thoracentesis with pigtail placement - no infection noted, exudative fluid concerning for malignant effusion given metastatic endometrial cancer - final cytology pending - pulm removed pigtail today 03/09/2022 and patient can be discharged with pulm and oncology follow up (2) Endometrial cancer: - concern for progression with carcinomatosis and left sided pleural effusion - follows with outpatient onc - s/p chemo - monitoring for now - thoracentesis and pleural fluid analysis as above - follow up with pulm and oncologist (3) Aortic stenosis: - noted (4) GERD (gastroesophageal reflux disease): - continue PPI (5) HTN (hypertension): - continue home meds as tolerated Plan DVT ppx: lovenox Code Status: Full Code Dispo: discharge home Paramjit Melendez MD [facility] Medicine Total Time Total Time Spent Total Time Spent (In Minutes): 39 Total Time Includes: Examination of the Patient, Discharge Planning, Medication Reconciliation and Communication With Other Providers Discharge Plan Discharge Items Patient Disposition: Home - Self-Care Reason For Visit: SOB, PLURAL EFFUSION Discharge Diagnosis: Left sided pleural effusion Activity: Resume your previous activity Non-emergency contact: Primary Care Provider and Oncologist Call non-emergency contact if: your symptoms worsen and your pain is not controlled Follow-up/Referrals: Petr Cantu MD [Physician] - Carlos Low MD [Primary Care Provider] - Barbara Orellana MD [Hospitalist] - Diet: Regular Addtl Attending Provider Instructions: You were admitted for shortness of breath and found to have a large left sided pleural effusion. You were seen by pulmonary who placed a drain to remove the fluid and then removed the drain. You had improvement in your symptoms and were ok for discharge. The fluid showed likely result of possible spread of your endometrial cancer as well as Cat scan evidence of spread to your abdomen (omentum). You should follow up with your oncologist Dr. Orellana as soon as you can and follow up with the daycare teacher in about a week for assessment of the pleural effusion. Pending Studies at Discharge: Yes Studies:: pleural fluid cytology Stand-Alone Forms: My [facility], Smoking Cessation Medications and DC Order Prescriptions: Continued omeprazole 20 mg Capsule,Delayed Release(Dr/Ec) 20 mg PO QAM furosemide 20 mg tablet 20 mg PO QAM multivitamin Tablet 1 tab PO DAILY celecoxib 200 mg capsule 200 mg PO DAILY PRN (Reason: Pain) potassium chloride 20 mEq tablet,ER particles/crystals 20 meq PO QAM losartan 25 mg tablet 25 mg PO DAILY diclofenac sodium 1 % gel 2 g TOPICAL QID PRN (Reason: Pain) Vitamin B-12 500 mcg PO DAILY Vitamin D3 125 mcg PO DAILY Rx Instructions: 5000 units Discharge Orders: Discharge Order (Routine); Ordered 03/09/22 Ordered By: Paramjit Melendez Admission Data Admit Date/Time: 03/08/22 04:30 Attending Provider: Paramjit Melendez Admit Provider: Jonathan Marrero Primary Care Provider: Carlos Low Other Providers: Jonathan Marrero ; Oscar Mejia ; Petr Cantu ; Carrington Kendall ; Luna Harris ; Mily Plummer
--- NOTE | 2022-03-09 12:35 | XRay Report ---
XR chest 1V portable CLINICAL HISTORY: follow up effusion COMPARISON STUDY: Chest CT and chest radiograph March 08, 2022. FINDINGS: Left pleural effusion has significantly decreased in size since prior exam. Left basilar pl eural catheter is in place. There is a small residual left pleural effusion. Left lung aeration has i mproved. Left lung airspace opacities are present. There is a trace left apical pneumothorax. Right i nternal jugular central line is in place. Right lung is clear. Cardiomediastinal silhouette is stable . IMPRESSION: 1. Left basilar pleural catheter in place. Significant decrease in size of the left pleural effusion. Trace left apical pneumothorax. 2. Left lung airspace opacities. These are nonspecific. Reexpansion pulmonary edema is within the di fferential. ACT 112: Negative or not required by law. Electronically signed by: Gigi Lloyd M.D. 03/09/2022 12:34 PM
== END 2022-03-09 12:21 | disposition home or self-care (01) ==
LOC: EDINP 00:12 → ED 00:12 → 2W 06:29

== ENCOUNTER 2022-07-07 17:38 | Inpatient (IN) ==
[2022-07-07] MEDS ORDERED: SODIUM CHLORIDE 0.9% 1000ML 1,000 ML IV SCH (18:00)
[2022-07-07 18:39] LABS: Basophils # (auto) 0.03 K/uL (0-0.2); Basophils % (auto) 0.3 %; Eosinophils # (auto) 0.08 K/uL (0-0.50); Eosinophils % (auto) 0.8 %; Hematocrit (blood only) 39.4 % (37.0-47.0); Hemoglobin 14.6 g/dl (12.0-16.0); Immature Granulocytes # (auto) 0.04 K/uL (0.01-0.20); Immature Granulocytes % (auto) 0.4 %; Lymphocytes # (auto) 1.59 K/uL (1.2-3.4); Lymphocytes % (auto) 16.7 %; Mean Corpuscular Hemoglobin 31.6 pg (25.0-34.0); Mean Corpuscular Hgb Conc 37.1 g/dL (32.0-36.0); Mean Corpuscular Volume 85.3 fL (80.0-100.0); Mean Platelet Volume 10.3 fL (9.4-12.4); Monocytes # (auto) 0.83 K/uL (0.11-0.59); Monocytes % (auto) 8.7 %; Neutrophils # (auto) 6.96 K/uL (1.40-6.50); Neutrophils % (auto) 73.1 %; Platelet Count 197 K/uL (130-400); RDW Coefficient of Variation 13.7 % (11.5-14.5); RDW Standard Deviation 42.5 fL (36.4-46.3); Red Blood Count 4.62 M/uL (4.20-5.40); White Blood Count 9.53 K/ul (4.8-10.8)
[2022-07-07 19:00] LABS: BUN Creatinine Ratio 15.2 (10-20); Calcium 8.5 mg/dl (8.6-10.3); Creatinine Clr Calc Pharmacy 46.8 ml/min; Est GFR (African American) 63.2 ml/min; Est GFR (Non-African American) 54.5 ml/min; Magnesium 1.2 mg/dl (1.7-2.4); Potassium 3.1 mmol/L (3.5-5.1)
[2022-07-07] MEDS ORDERED: POTASSIUM CHLORIDE 10 MEQ TABCR PO STA (19:08)
--- NOTE | 2022-07-07 19:26 | History & Physical Report ---
Date of Service July 07, 2022 Assessment & Plan (1) Acute hyponatremia: (2) Altered mental status: (3) Acute hypokalemia: (4) Hypomagnesemia: (5) Endometrial cancer: (6) Abnormal TSH: (7) HTN (hypertension): (8) GERD (gastroesophageal reflux disease): Plan: Assessment and plan per Dr. Marrero. See addendum History of Present Illness Chief Complaint: Abnormal labs Primary Care Provider: Carlos Low MD Patient 66-year-old female with PMH Endometrial cancer s/p total hysterectomy, chemo, HTN, CKD III PVD, fatty liver presented to ER with complaint of abnormal labs. Patient with outpatient labs from today with sodium of 118 and referred to ER. History obtained from chart review, patient as well as patient's and patient's daughter who are at bedside. Patient states that she has been feeling very tired for the past 3 weeks. Also reports generalized weakness. She states she is on Keytruda and lenvatinib. Last treatment Keytruda on 07/05/2022. Lenvatinib is currently being held secondary to patient having soreness of tongue and decreased eating secondary to mouth soreness. Patient states has been drinking fluids. Family note patient seems more tired today than she has the past couple of weeks. They also note she has been having some trouble thinking today. Patient with noted abnormal TSH on outpatient labs and she started levothyroxine 50 mcg today. Denies fever/chills, diaphoresis, N/V/D/C, WALKER, dizziness, syncope, vision changes, neck pain, CP, SOB, orthopnea, palpitations, cough, sore throat, choking, otalgia, rhinorrhea, abdominal pain, paresthesias, extremity edema, rashes, urinary symptoms. Outpatient chart reviewed. Sodium of 118 today, 128 on 07/05, 132 on 06/14, 125 on 06/13/22 Allergies Allergy/AdvReac Type Severity Reaction Status Date / Time erythromycin base Allergy Mild NAUSEA/VOMI Verified 07/07/22 19:15 TTING Iodinated Contrast Media Allergy Unknown edema,hives Verified 07/07/22 19:15 ,other red dye Allergy Hives Verified 07/07/22 19:15 Home Medications Medication Instructions Recorded Confirmed Type omeprazole 20 mg capsule,delayed 20 mg PO QAM 05/20/18 07/07/22 History release furosemide 20 mg tablet 20 mg PO QAM 07/30/21 07/07/22 History multivitamin 1 tab PO DAILY 07/30/21 07/07/22 History diclofenac sodium 1 % topical gel 2 g topical QID PRN Pain 03/08/22 07/07/22 History cholecalciferol (vitamin D3) 125 125 mcg PO DAILY 07/07/22 07/07/22 History mcg (5,000 unit) tablet (Vitamin D3) cyanocobalamin (vitamin B-12) 500 500 mcg PO DAILY 07/07/22 07/07/22 History mcg tablet (Vitamin B-12) fluoride (sodium) 1.1 % dental gel 1 applic dental HS 07/07/22 07/07/22 History lenvatinib 20 mg/day (10 mg x 2) 20 mg PO QAM 07/07/22 07/07/22 History capsule levothyroxine 50 mcg tablet 50 mcg PO DAILYBB 07/07/22 07/07/22 History losartan 50 mg tablet 50 mg PO QAM 07/07/22 07/07/22 History urea 20 % topical cream 1 applic topical BID 07/07/22 07/07/22 History Past Med/Surg History Medical History (Updated 07/07/22 @ 20:53 by Jeannine Phipps PA-C) Aortic stenosis Endometrial cancer GERD (gastroesophageal reflux disease) HTN (hypertension) Osteoarthritis Pleural effusion, left Surgical History History of cataract surgery LEFT 06/13/18: was given 2mg of versed Hx of dilation and curettage Hx of reduction of closed dislocation RIGHT WRIST Hx of tonsillectomy Social History Smoking Status: Never smoker Second Hand Exposure: No; Hx Alcohol Use: No Hx Substance Use: No Preferred Language: Niuean Communication Ability: Effective Communication Ability Comment: speak louder Old Coin Dealer Required: No Beliefs That Will Affect Care: None marital status: Current Living Situation: Spouse Current Living Situation Comment: Lives at home with Other Information That Helps Us Care for You: No Feels Safe at Home: Yes Safety Concerns: Feels Safe At This Time Assistive Devices: Bedside Commode Review of Systems Review of Systems: All systems reviewed & are unremarkable except as noted in HPI & below Physical Exam Physical Exam: General: no distress, WDWN Head: normocephalic, atraumatic Eyes: conjunctiva non-injected, anicteric ENT: normal inspection external ears, nose, mucous membranes moist Neck: supple, trachea midline, non-tender Lungs: clear, no respiratory distress, no wheezing/rhonchi/rales CV: RRR, + murmur, no pretibial edema Abd: normal BS, soft, non-tender Ext: no cyanosis, no calf tenderness Neuro: +drowsy, awakens to voice. oriented to person and place. Thinks its 2020 and initially does not know the month, then says it is spring. no focal deficits noted, normal affect Skin: warm, dry Results & Data Results & Data Vital Signs (Past 12 Hours) Vital Signs Temp Pulse Pulse Resp BP BP Pulse Ox 07/07/22 18:05 87 26 H 96 07/07/22 18:05 87 26 H 125/89 96 07/07/22 18:11 81 07/07/22 17:45 36.6 C 97 H 16 119/81 97 O2 Del Method 07/07/22 18:05 Room Air 07/07/22 18:05 Room Air 07/07/22 18:11 07/07/22 17:45 Room Air Laboratory Results Short CBC 07/07/22 Range/Units 18:20 WBC 9.53 (4.8-10.8) K/ul Hgb 14.6 (12.0-16.0) g/dl Hct 39.4 (37.0-47.0) % Plt Count 197 (130-400) K/uL BMP 07/07/22 18:20 Sodium 117 L* Potassium 3.1 L Chloride 86 L Carbon Dioxide 20 L BUN 16 Creatinine 1.05 Glucose 85 Calcium 8.5 L Urine 07/07/22 Range/Units 20:16 Urine Color Yellow Urine Appearance Cloudy A (Clear) Urine pH 5.5 (4.5-7.5) Ur Specific [place] 1.006 (1.000-1.030) Urine Protein 1+ H (Negative) Urine Glucose (UA) Negative (Negative) Supervising Physician Co-Signing Physician Notes IM ATTENDING : Patient seen and examined. History obtained from patient, family, and records. Patient is a fair historian. Preceding documentation by Ms. Jeannine Phipps PA-C reviewed. In addition : Patient admits to taking more than 5 tablets of OTC NSAID at home for right knee osteoarthritis. Recent outpatient steroid injection for right knee osteoarthritis. CT head results as follows: No acute findings in the head/brain. UA WBC est FINAL ASSESSMENT AND PLAN as follows : Hyponatremia presenting as weakness and mild encephalopathy Multifactorial : Decreased p.o. intake secondary to chemotherapy related oral pain/glossitis, complicated UTI Progressive hyponatremia possibly related to pembrolizumab Rx, hx metastatic endometrial cancer status post surgery/ongoing immunotherapy (patient currently on Keytruda, pembrolizumab held recently due to concern for oral pain side effects) New diagnosis of hypothyroidism possibly related to immunotherapy status post recent initiation of levothyroxine supplementation NSAID use contributory hypertension, stable Hx malignant L pleural effusion status postdrainage mild aortic stenosis Possible deconditioning Medical telemetry Careful correction of sodium Hyponatremia work-up Continue to hold pembrolizumab until follow-up with oncologist given concerns for adverse effects Recheck serum TSH next month Patient counseled to avoid oral NSAIDs given association with hyponatremia Urine CS, Ceftriaxone May benefit from Nephrology consultation Viscous lidocaine trial as needed for patient's oral pain PT OT eval DVT prophylaxis with Lovenox subcu Full code Patient family requesting updates providers. Mr. Aj Lobo (), contact #[phone] Ms. Juliet Diop (daughter), contact #[phone] Text document was generated using [employer] voice recognition software. It may contain grammatical or spelling errors. Kindly contact undersigned for clarification of any documentation item in question. (2) Altered mental status Altered mental status type: disorientation Qualified Code(s): R41.0 - Disorientation, unspecified
[2022-07-07] MEDS ORDERED: SODIUM CHLORIDE 0.9% 1000ML 1,000 ML IV ONE (19:28)
[2022-07-07] MEDS ORDERED: MAGNESIUM SULFATE / D5W 1 GM/100 ML BAG IV SCH (19:30)
[2022-07-07] MEDS: MAGNESIUM SULFATE / D5W 1 GM/100 ML BAG IV SCH ×2 (19:45→21:12)
[2022-07-07 20:29] LABS: Appearance Urine Cloudy (Clear); Bacteria Urine Automated Negative (Negative); Bilirubin Urine Negative (Negative); Blood Urine 1+ (Negative); Color Urine Yellow; Epithelial Cell Urine Auto >30 /lpf (0-5); Glucose Urine UA Negative (Negative); Ketones Urine Negative (Negative); Leukocyte Esterase Urine 1+ (Negative); Nitrite Urine Negative (Negative); Protein Urine 1+ (Negative); RBC Urine Automated 0-4 /hpf (0-4); Specific Gravity Urine 1.006 (1.000-1.030); Urobilinogen Urine Negative (Negative); WBC Urine Automated >30 /hpf (0-5); pH Urine 5.5 (4.5-7.5)
--- NOTE | 2022-07-07 20:46 | Emergency Department Note ---
History of Present Illness General Chief Complaint: Abnormal Labs/Diagnostic Testing Stated Complaint: ABNORMAL LABS Time Seen by Provider: 07/07/22 17:49 History of Present Illness Provider Complaint: + abnormal lab Description of abnormal result: Sodium 118 Associated symptoms: no fever, no chills, no chest pain, no shortness of breath, no malaise or no abdominal pain HPI narrative: Patient is on oral chemotherapy from [facility] oncology for endometrial cancer. Home Medications Medication Instructions Recorded Confirmed Type omeprazole 20 mg capsule,delayed 20 mg PO QAM 05/20/18 07/07/22 History release furosemide 20 mg tablet 20 mg PO QAM 07/30/21 07/07/22 History multivitamin 1 tab PO DAILY 07/30/21 07/07/22 History diclofenac sodium 1 % topical gel 2 g topical QID PRN Pain 03/08/22 07/07/22 History cholecalciferol (vitamin D3) 125 125 mcg PO DAILY 07/07/22 07/07/22 History mcg (5,000 unit) tablet (Vitamin D3) cyanocobalamin (vitamin B-12) 500 500 mcg PO DAILY 07/07/22 07/07/22 History mcg tablet (Vitamin B-12) fluoride (sodium) 1.1 % dental gel 1 applic dental HS 07/07/22 07/07/22 History lenvatinib 20 mg/day (10 mg x 2) 20 mg PO QAM 07/07/22 07/07/22 History capsule levothyroxine 50 mcg tablet 50 mcg PO DAILYBB 07/07/22 07/07/22 History losartan 50 mg tablet 50 mg PO QAM 07/07/22 07/07/22 History urea 20 % topical cream 1 applic topical BID 07/07/22 07/07/22 History Allergies Allergy/AdvReac Type Severity Reaction Status Date / Time erythromycin base Allergy Mild NAUSEA/VOMI Verified 07/07/22 19:15 TTING Iodinated Contrast Media Allergy Unknown edema,hives Verified 07/07/22 19:15 ,other red dye Allergy Hives Verified 07/07/22 19:15 Past Med/Surg History Medical History Aortic stenosis Endometrial cancer GERD (gastroesophageal reflux disease) HTN (hypertension) Osteoarthritis Pleural effusion, left Surgical History History of cataract surgery LEFT 06/13/18: was given 2mg of versed Hx of dilation and curettage Hx of reduction of closed dislocation RIGHT WRIST Hx of tonsillectomy Social History Smoking Status: Never smoker Second Hand Exposure: No; Hx Alcohol Use: Yes Alcohol type: beer Hx Substance Use: No Preferred Language: Japanese Communication Ability: Effective Communication Ability Comment: speak louder Teller Coordinator Required: No Beliefs That Will Affect Care: None marital status: Current Living Situation: Spouse Current Living Situation Comment: Lives at home with Feels Safe at Home: Yes Assistive Devices: None Physical Exam Vital Signs: Vital Signs - 24 hr 07/07/22 17:45 07/07/22 18:11 07/07/22 18:05 Temperature 36.6 C Temperature Source Temporal Artery Sc an Pulse Rate 97 H 81 Pulse Rate [Right Finger] 87 Pulse Rhythm Pulse Rhythm [Righ t Finger] Regular Pulse Strength [Ri ght Finger] Normal Respiratory Rate 16 26 H Respiratory Effort / Characteristics Non-Labored Non-Labored Sponta neous Respiratory Depth Normal Normal Respiratory Patter n Tachypnea Blood Pressure 119/81 Blood Pressure [Ri ght Arm] 125/89 Blood Pressure Katja n 93 Blood Pressure Katja n [Right Arm] 101 Blood Pressure Pos ition [Right Arm] Lying Pulse Oximetry 97 96 Oxygen Delivery Me thod Room Air Room Air Sepsis Recent Feve r Within 48 Hours No Sepsis New/Unexpla ined Change in Men cyn Status No Sepsis Action Take n by Nursing No Action Required 07/07/22 18:05 Temperature Temperature Source Pulse Rate 87 Pulse Rate [Right Finger] Pulse Rhythm Regular Pulse Rhythm [Righ t Finger] Pulse Strength [Ri ght Finger] Respiratory Rate 26 H Respiratory Effort / Characteristics Respiratory Depth Respiratory Patter n Blood Pressure Blood Pressure [Ri ght Arm] Blood Pressure Katja n Blood Pressure Katja n [Right Arm] Blood Pressure Pos ition [Right Arm] Pulse Oximetry 96 Oxygen Delivery Me thod Room Air Sepsis Recent Feve r Within 48 Hours Sepsis New/Unexpla ined Change in Men cyn Status Sepsis Action Take n by Nursing Physical Exam: Physical Exam GENERAL: oriented to person, place, and time. appears well-developed and well- nourished. HENT: Exam performed. - Head: Normocephalic and atraumatic. EYES: Conjunctivae and EOM are normal. Right eye exhibits no discharge. Left eye exhibits no discharge. No scleral icterus. NECK: Normal range of motion. Neck supple. No JVD present. CV: Normal rate, regular rhythm, systolic murmur and intact distal pulses. There is no peripheral edema. Palpable radial pulses bue. PULM/CHEST: Effort normal and breath sounds normal. No respiratory distress. No stridor. no wheezes. no rales. ABD: The abdomen is soft. There is no tenderness. NEURO: Motor and sensation grossly intact. SKIN: Skin is warm and dry. He is not diaphoretic. PSYCH: normal mood and affect. Behavior is normal. Judgment and thought content normal. Course Course 1748: The patient was evaluated in room B10. A complete history and physical exam was performed 1909: Vital signs stable. Labs show sodium of 117 potassium 3.1 magnesium 1.2. Magnesium repletion started in the emergency department. Sodium repletion started with normal saline through the IV. Patient not had any seizures and has no neurological deficits no need for hypertonic saline. Potassium will be repleted after magnesium repletion is finished in the emergency department. [facility]. Administered Medications Magnesium Sulfate/Dextrose (Magnesium Sulfate / D5w) 1 gm in 100 mls @ 100 mls/hr IV Q1H [facility] Stop: 07/07/22 21:02 Last Admin: 07/07/22 19:45 Dose: 100 mls/hr Documented By: MARV Sodium Chloride (Nss 1000ml) 1,000 mls @ 100 mls/hr IV .Q10H ONE Stop: 07/08/22 05:26 Last Admin: 07/07/22 19:57 Dose: 100 mls/hr Documented By: GARAGE CONSTRUCTION EQUIPMENT MECHANIC Discontinued Medications Sodium Chloride (Nss 1000ml) 1,000 mls @ 125 mls/hr IV .Q8H AILEEN Stop: 08/06/22 17:59 Last Infusion: 07/07/22 20:30 Dose: 0 mls/hr Documented By: Infusion: 07/07/22 19:54 Dose: 0 mls/hr Documented By: Admin: 07/07/22 18:43 Dose: 125 mls/hr Documented By: GARAGE CONSTRUCTION EQUIPMENT MECHANIC Magnesium Sulfate/Dextrose (Magnesium Sulfate / D5w) 1 gm in 100 mls @ 50 mls/hr IV Q2H AILEEN Stop: 07/07/22 23:29 Last Admin: 07/07/22 20:18 Dose: Not Given Documented By: GARAGE CONSTRUCTION EQUIPMENT MECHANIC Medical Decision Making Laboratory Data Attestation: I reviewed the patient's lab results. 07/07/22 18:20 07/07/22 18:20 Lab Results 07/07/22 07/07/22 07/07/22 Range/Units 18:00 18:20 18:20 WBC 9.53 (4.8-10.8) K/ul RBC 4.62 (4.20-5.40) M/uL Hgb 14.6 (12.0-16.0) g/dl Hct 39.4 (37.0-47.0) % MCV 85.3 (80.0-100.0) fL MCH 31.6 (25.0-34.0) pg MCHC 37.1 H (32.0-36.0) g/dL RDW Std Deviation 42.5 (36.4-46.3) fL RDW Coeff of Khushbu 13.7 (11.5-14.5) % Plt Count 197 (130-400) K/uL MPV 10.3 (9.4-12.4) fL Immature Gran % (Auto) 0.4 % Neut % (Auto) 73.1 % Lymph % (Auto) 16.7 % Reeves % (Auto) 8.7 % Eos % (Auto) 0.8 % Baso % (Auto) 0.3 % Neut # (Auto) 6.96 H (1.40-6.50) K/uL Lymph # (Auto) 1.59 (1.2-3.4) K/uL Reeves # (Auto) 0.83 H (0.11-0.59) K/uL Eos # (Auto) 0.08 (0-0.50) K/uL Baso # (Auto) 0.03 (0-0.2) K/uL Immature Gran # (Auto) 0.04 (0.01-0.20) K/uL Sodium 117 L* (136-145) mmol/L Potassium 3.1 L (3.5-5.1) mmol/L Chloride 86 L (98-107) mmol/L Carbon Dioxide 20 L (21-32) mmol/L Anion Gap 11 (3-11) BUN 16 (6-23) mg/dl Creatinine 1.05 (0.6-1.2) mg/dl Est Cr Clr Drug Dosing 46.8 ml/min Est GFR ( Amer) 63.2 ml/min Est GFR (Non-Af Amer) 54.5 ml/min BUN/Creatinine Ratio 15.2 (10-20) Glucose 85 (70-99(Fasting)) mg/dl POC Glucose 98 (70-99) mg/dl Osmolality (280-300) mOsm/kg Calcium 8.5 L (8.6-10.3) mg/dl Magnesium 1.2 L (1.7-2.4) mg/dl TSH Urine Color Urine Appearance (Clear) Urine pH (4.5-7.5) Ur Specific [place] (1.000-1.030) Urine Protein (Negative) Urine Glucose (UA) (Negative) Urine Ketones (Negative) Urine Blood (Negative) Urine Nitrite (Negative) Urine Bilirubin (Negative) Urine Urobilinogen (Negative) Ur Leukocyte Esterase (Negative) Urine WBC (Auto) (0-5) /hpf Urine RBC (Auto) (0-4) /hpf U Hyaline Cast (Auto) (0-5) /lpf U Epithel Cells (Auto) (0-5) /lpf Urine Bacteria (Auto) (Negative) Ur Random Sodium mmol/L SARS-CoV-2, RNA, NAAT (NEGATIVE) 07/07/22 07/07/22 07/07/22 Range/Units 18:20 18:20 18:47 WBC (4.8-10.8) K/ul RBC (4.20-5.40) M/uL Hgb (12.0-16.0) g/dl Hct (37.0-47.0) % MCV (80.0-100.0) fL MCH (25.0-34.0) pg MCHC (32.0-36.0) g/dL RDW Std Deviation (36.4-46.3) fL RDW Coeff of Khushbu (11.5-14.5) % Plt Count (130-400) K/uL MPV (9.4-12.4) fL Immature Gran % (Auto) % Neut % (Auto) % Lymph % (Auto) % Reeves % (Auto) % Eos % (Auto) % Baso % (Auto) % Neut # (Auto) (1.40-6.50) K/uL Lymph # (Auto) (1.2-3.4) K/uL Reeves # (Auto) (0.11-0.59) K/uL Eos # (Auto) (0-0.50) K/uL Baso # (Auto) (0-0.2) K/uL Immature Gran # (Auto) (0.01-0.20) K/uL Sodium (136-145) mmol/L Potassium (3.5-5.1) mmol/L Chloride (98-107) mmol/L Carbon Dioxide (21-32) mmol/L Anion Gap (3-11) BUN (6-23) mg/dl Creatinine (0.6-1.2) mg/dl Est Cr Clr Drug Dosing ml/min Est GFR ( Amer) ml/min Est GFR (Non-Af Amer) ml/min BUN/Creatinine Ratio (10-20) Glucose (70-99(Fasting)) mg/dl POC Glucose (70-99) mg/dl Osmolality 247 L (280-300) mOsm/kg Calcium (8.6-10.3) mg/dl Magnesium (1.7-2.4) mg/dl TSH Cancelled Urine Color Urine Appearance (Clear) Urine pH (4.5-7.5) Ur Specific [place] (1.000-1.030) Urine Protein (Negative) Urine Glucose (UA) (Negative) Urine Ketones (Negative) Urine Blood (Negative) Urine Nitrite (Negative) Urine Bilirubin (Negative) Urine Urobilinogen (Negative) Ur Leukocyte Esterase (Negative) Urine WBC (Auto) (0-5) /hpf Urine RBC (Auto) (0-4) /hpf U Hyaline Cast (Auto) (0-5) /lpf U Epithel Cells (Auto) (0-5) /lpf Urine Bacteria (Auto) (Negative) Ur Random Sodium mmol/L SARS-CoV-2, RNA, NAAT NEGATIVE (NEGATIVE) 07/07/22 07/07/22 Range/Units 20:16 20:16 WBC (4.8-10.8) K/ul RBC (4.20-5.40) M/uL Hgb (12.0-16.0) g/dl Hct (37.0-47.0) % MCV (80.0-100.0) fL MCH (25.0-34.0) pg MCHC (32.0-36.0) g/dL RDW Std Deviation (36.4-46.3) fL RDW Coeff of Khushbu (11.5-14.5) % Plt Count (130-400) K/uL MPV (9.4-12.4) fL Immature Gran % (Auto) % Neut % (Auto) % Lymph % (Auto) % Reeves % (Auto) % Eos % (Auto) % Baso % (Auto) % Neut # (Auto) (1.40-6.50) K/uL Lymph # (Auto) (1.2-3.4) K/uL Reeves # (Auto) (0.11-0.59) K/uL Eos # (Auto) (0-0.50) K/uL Baso # (Auto) (0-0.2) K/uL Immature Gran # (Auto) (0.01-0.20) K/uL Sodium (136-145) mmol/L Potassium (3.5-5.1) mmol/L Chloride (98-107) mmol/L Carbon Dioxide (21-32) mmol/L Anion Gap (3-11) BUN (6-23) mg/dl Creatinine (0.6-1.2) mg/dl Est Cr Clr Drug Dosing ml/min Est GFR ( Amer) ml/min Est GFR (Non-Af Amer) ml/min BUN/Creatinine Ratio (10-20) Glucose (70-99(Fasting)) mg/dl POC Glucose (70-99) mg/dl Osmolality (280-300) mOsm/kg Calcium (8.6-10.3) mg/dl Magnesium (1.7-2.4) mg/dl TSH Urine Color Yellow Urine Appearance Cloudy A (Clear) Urine pH 5.5 (4.5-7.5) Ur Specific [place] 1.006 (1.000-1.030) Urine Protein 1+ H (Negative) Urine Glucose (UA) Negative (Negative) Urine Ketones Negative (Negative) Urine Blood 1+ H (Negative) Urine Nitrite Negative (Negative) Urine Bilirubin Negative (Negative) Urine Urobilinogen Negative (Negative) Ur Leukocyte Esterase 1+ H (Negative) Urine WBC (Auto) >30 H (0-5) /hpf Urine RBC (Auto) 0-4 (0-4) /hpf U Hyaline Cast (Auto) 1-5 (0-5) /lpf U Epithel Cells (Auto) >30 H (0-5) /lpf Urine Bacteria (Auto) Negative (Negative) Ur Random Sodium < 10 mmol/L SARS-CoV-2, RNA, NAAT (NEGATIVE) ECG Data Attestation: I personally reviewed and interpreted this ECG as follows: Indication: weakness Rate (beats per minute): 82 Rhythm: normal sinus Findings: no ST depression, no ST elevation or no prolonged QT Additional Comments: QRS 70 MDM Narrative Vital signs stable. Labs show sodium of 117 potassium 3.1 magnesium 1.2. Magnesium repletion started in the emergency department. Sodium repletion started with normal saline through the IV. Patient not had any seizures and has no neurological deficits no need for hypertonic saline. Potassium will be repleted after magnesium repletion is finished in the emergency department. [facility]. Impression & Plan Acute hyponatremia, Hypomagnesemia, Acute hypokalemia Discharge Plan Visit Data Chief Complaint: Abnormal Labs/Diagnostic Testing Stated Complaint: ABNORMAL LABS ED Provider: Cruz Aviles Discharge Problem: Acute hyponatremia, Hypomagnesemia, Acute hypokalemia Patient Disposition: Admitted As Inpatient Forms Stand Alone Forms: My [facility] Prescriptions Prescriptions: No Action omeprazole 20 mg Capsule,Delayed Release(Dr/Ec) 20 mg PO QAM furosemide 20 mg tablet 20 mg PO QAM multivitamin Tablet 1 tab PO DAILY diclofenac sodium 1 % gel 2 g TOPICAL QID PRN (Reason: Pain) losartan 50 mg tablet 50 mg PO QAM levothyroxine 50 mcg tablet 50 mcg PO DAILYBB fluoride (sodium) 1.1 % gel 1 applic dental HS cyanocobalamin (vitamin B-12) [Vitamin B-12] 500 mcg Tablet 500 mcg PO DAILY cholecalciferol (vitamin D3) [Vitamin D3] 125 mcg (5,000 unit) Tablet 125 mcg PO DAILY urea 20 % Cream 1 applic TOPICAL BID Rx Instructions: apply to hands and feet lenvatinib 20 mg/day (10 mg x 2) Capsule 20 mg PO QAM Referrals Referrals: Carlos Low MD [Primary Care Provider] -
[2022-07-07] MEDS ORDERED: ACETAMINOPHEN 325 MG TAB PO PRN (20:51)
[2022-07-07] MEDS ORDERED: ACETAMINOPHEN W/CODEINE #3 1 TAB PO PRN (20:51)
[2022-07-07] MEDS ORDERED: PROMETHAZINE HCL 6.25 MG in SODIUM CHLORIDE 0.9% 50 ML IV PRN (20:51)
[2022-07-07] MEDS ORDERED: POTASSIUM CHLORIDE PWD 20 MEQ PACK PO STA (22:00)
[2022-07-07] MEDS ORDERED: DICLOFENAC SOD 1% GEL 100 GM TUBE EXT PRN (22:31)
[2022-07-07] MEDS ORDERED: LIDOCAINE VISCOUS 2% 15 ML UDC MT ONE (23:00)
[2022-07-07] MEDS ORDERED: LIDOCAINE VISCOUS 2% 15 ML UDC MT PRN (23:05)
--- NOTE | 2022-07-07 23:26 | CT Scan Report ---
Exam(s): CT HEAD Without Contrast EXAM: CT Head Without Intravenous Contrast CLINICAL HISTORY: Reason for exam: ams. TECHNIQUE: Axial computed tomography images of the head/brain without intravenous contrast. CTDI is 37.69 mGy and DLP is 691.05 mGy-cm. Automated exposure control was utilized for the study. A dose lowering technique was utilized adhering to the principles of ALARA. COMPARISON: Dated 07/30/21 FINDINGS: Brain: The cerebral and cerebellar sulci are mildly prominent consistent with mild brain atrophy. There are a few areas of decreased attenuation in the deep cerebral white matter consistent with mild small vessel ischemic/degenerative changes. No hemorrhage. Ventricles: Unremarkable. No ventriculomegaly. Bones/joints: Unremarkable. No acute fracture. Soft tissues: Unremarkable. Vasculature: Atherosclerotic disease. Sinuses: Unremarkable as visualized. No acute sinusitis. Mastoid air cells: Unremarkable as visualized. No mastoid effusion. IMPRESSION: No acute findings in the head/brain. Electronically signed by: Asad Tony MD 07/07/22 23:25 PM
[2022-07-08] MEDS: cefTRIAXone SODIUM 2,000 MG in DEXTROSE 5% 50 ML IV SCH (01:05)
[2022-07-08] MEDS ORDERED: ACETAMINOPHEN SUSP 500 MG/15.6 ML UDP PO PRN (03:52)
[2022-07-08] MEDS ORDERED: ACETAMINOPHEN SUSP 500 MG/15.6 ML UDP PO STA (03:52)
[2022-07-08] MEDS ORDERED: ACETAMINOPHEN 1,000 MG/100 ML VIAL IV STA (03:56)
[2022-07-08] MEDS ORDERED: ACETAMINOPHEN 325 MG TAB PO PRN (03:57)
[2022-07-08 05:25] LABS: Basophils # (auto) 0.03 K/uL (0-0.2); Basophils % (auto) 0.3 %; Eosinophils # (auto) 0.07 K/uL (0-0.50); Eosinophils % (auto) 0.8 %; Hematocrit (blood only) 40.2 % (37.0-47.0); Immature Granulocytes # (auto) 0.03 K/uL (0.01-0.20); Immature Granulocytes % (auto) 0.3 %; Lymphocytes # (auto) 1.37 K/uL (1.2-3.4); Lymphocytes % (auto) 15.1 %; Mean Corpuscular Hemoglobin 31.5 pg (25.0-34.0); Mean Corpuscular Hgb Conc 37.3 g/dL (32.0-36.0); Mean Corpuscular Volume 84.5 fL (80.0-100.0); Mean Platelet Volume 10.3 fL (9.4-12.4); Monocytes # (auto) 0.77 K/uL (0.11-0.59); Monocytes % (auto) 8.5 %; Platelet Count 206 K/uL (130-400); RDW Coefficient of Variation 13.6 % (11.5-14.5); RDW Standard Deviation 42.5 fL (36.4-46.3); Red Blood Count 4.76 M/uL (4.20-5.40); White Blood Count 9.07 K/ul (4.8-10.8)
[2022-07-08] MEDS: LEVOTHYROXINE SODIUM 50 MCG TABLET PO SCH (05:35)
[2022-07-08 05:40] LABS: BUN Creatinine Ratio 14.9 (10-20); Calcium 8.1 mg/dl (8.6-10.3); Creatinine Clr Calc Pharmacy 56.5 ml/min; Est GFR (African American) 79.3 ml/min; Est GFR (Non-African American) 68.5 ml/min; Magnesium 1.8 mg/dl (1.7-2.4); Potassium 3.6 mmol/L (3.5-5.1)
--- NOTE | 2022-07-08 06:47 | XRay Report ---
XR chest 1V portable CLINICAL HISTORY: hyponatremia, tachypnea COMPARISON STUDY: Chest CT March 08, 2022 and chest radiograph March 09, 2022. FINDINGS: A right pleural effusion is noted. There is a left apical paramediastinal mass-like density which is developed since prior examination. Asymmetric interstitial thickening within the left lung is noted. There is hazy left basilar opacity. No airspace opacities within the right lung are present . There is no evidence for pulmonary edema. There is mild left lung volume loss. IMPRESSION: 1. Small left pleural effusion with asymmetric interstitial thickening and hazy opacity within the le ft lower lung. No pneumothorax. 2. Left apical paramediastinal mass-like opacity. This is nonspecific and could reflect a mass, lymph adenopathy or loculated pleural fluid. ACT 112: Negative or not required by law. Electronically signed by: Gigi Lloyd M.D. 07/08/2022 6:44 AM
[2022-07-08] MEDS: CYANOCOBALAMIN (B-12) 500 MCG TABLET PO SCH (07:50)
[2022-07-08] MEDS: ENOXAPARIN INJ 40 MG/0.4 ML SYR SQ SCH (07:50)
[2022-07-08] MEDS: PANTOprazole 40 MG TAB PO SCH (07:51)
[2022-07-08] MEDS: MULTIVITAMIN TAB PO SCH (07:51)
[2022-07-08] MEDS: LOSARTAN POTASSIUM 50 MG TAB PO SCH (07:51)
--- NOTE | 2022-07-08 08:45 | Nephrology Consultation ---
Date of Consultation July 08, 2022 Assessment & Plan (1) Hyponatremia: Critical hypotonic hyponatremia with presenting serum sodium 117 on July 07 at 1800. Urine osms 120 and urine sodium less than 10 with serum osmolality 247. Improved sodium to 122 on July 08 0500 but dropped back to 118 by midday Hyponatremia likely multifactorial in the setting of polydipsia due to stomatitis, also both pembrolizumab and lenvatinib can cause hyponatremia, particularly the former. Patient was also using nonsteroidals prior to admission. -Correcting appropriately even quickly: Target is sodium 123 this evening at 1800. -For now no fluid limit while on liquid diet BUT would discourage free water fluids and encourage -BMP ordered noon, 1800 -maintain eukalemia -Continue to hold NSAIDs -held losartan starting tomorrow am >>>based on her confusion will give 3% saline 30 mL/hr starting 1500 x 3 hrs stat >will replete K IV > 3 x 20 mEq stat >recheck BMP 1800 ordered History of Present Illness Reason for Consultation: Hyponatremia Requesting Physician: Dr. Vasquez Attending Physician: Yury Vasquez MD History of Present Illness 66-year-old female whom I am asked to evaluate for hyponatremia was admitted last evening after outpatient labs showed a sodium of 118. Past medical history includes endometrial cancer status post total hysterectomy and on chemotherapy and with history of malignant left pleural effusion status postdrainage, hypertension, CKD 3, peripheral vascular disease, fatty liver. Also recently diagnosed with hypothyroid and started on medication. She is being treated with pembrolizumag (Keytruda) last dosed July 05. Also on lenvatinib but this has been held recently due to stomatitis with decreased p.o. also with right knee osteoarthritis which she has been managing with nonsteroidals greater than 5 pills daily. She had a liter of normal saline in the ER. Also 80 mill equivalent oral potassium and 2 g of IV mag. this morning her sodium is 122 (was 117 on presentation) with potassium 3.6. Urine osm's 120 and serum awesome's 247, urine sodium less than 10. When I evaluated the patient this morning, she was frustrated and angry and a bit confused. She was adamant about signing out for an Easter egg Thomas AMA. She was frustrated that staff had orders not to let her ambulate alone and furious at having a heart monitor. She did endorse marked fatigue for several weeks with generalized weakness. No nausea vomiting, no falls no new or worrisome voiding symptoms, no abdominal pain no dizziness or presyncopal symptoms, no palpitations or chest discomfort, no cough. She is currently on a clear liquid diet. She tells me she has been drinking much more than eating because of the stomatitis prior to admission. Allergies Allergy/AdvReac Type Severity Reaction Status Date / Time erythromycin base Allergy Mild NAUSEA/VOMI Verified 07/07/22 19:15 TTING Iodinated Contrast Media Allergy Unknown edema,hives Verified 07/07/22 19:15 ,other red dye Allergy Hives Verified 07/07/22 19:15 Home Medications Medication Instructions Recorded Confirmed Type omeprazole 20 mg capsule,delayed 20 mg PO QAM 05/20/18 07/07/22 History release furosemide 20 mg tablet 20 mg PO QAM 07/30/21 07/07/22 History multivitamin 1 tab PO DAILY 07/30/21 07/07/22 History diclofenac sodium 1 % topical gel 2 g topical QID PRN Pain 03/08/22 07/07/22 History cholecalciferol (vitamin D3) 125 125 mcg PO DAILY 07/07/22 07/07/22 History mcg (5,000 unit) tablet (Vitamin D3) cyanocobalamin (vitamin B-12) 500 500 mcg PO DAILY 07/07/22 07/07/22 History mcg tablet (Vitamin B-12) fluoride (sodium) 1.1 % dental gel 1 applic dental HS 07/07/22 07/07/22 History lenvatinib 20 mg/day (10 mg x 2) 20 mg PO QAM 07/07/22 07/07/22 History capsule levothyroxine 50 mcg tablet 50 mcg PO DAILYBB 07/07/22 07/07/22 History losartan 50 mg tablet 50 mg PO QAM 07/07/22 07/07/22 History urea 20 % topical cream 1 applic topical BID 07/07/22 07/07/22 History Patient History Medical History Aortic stenosis Endometrial cancer GERD (gastroesophageal reflux disease) HTN (hypertension) Osteoarthritis Pleural effusion, left Surgical History History of cataract surgery LEFT 06/13/18: was given 2mg of versed Hx of dilation and curettage Hx of reduction of closed dislocation RIGHT WRIST Hx of tonsillectomy Social History Smoking Status: Never smoker Second Hand Exposure: No; Hx Alcohol Use: No Hx Substance Use: No Preferred Language: Uzbek Communication Ability: Effective Communication Ability Comment: speak louder Cook Soup Required: No Beliefs That Will Affect Care: None marital status: Current Living Situation: Spouse Current Living Situation Comment: Lives at home with Other Information That Helps Us Care for You: No Feels Safe at Home: Yes Safety Concerns: Feels Safe At This Time Assistive Devices: Bedside Commode Review of Systems Review of Systems: All systems reviewed & are unremarkable except as noted in HPI & below Physical Exam Constitutional: well developed, well nourished and + combative ( verbally); no acute distress Eyes: EOM intact bilaterally ENMT: Ears: no external ear abnormality Nose: no external nose abnormality Mouth: + dry oral mucous membranes Neck: no nuchal rigidity Respiratory: normal respiratory effort Auscultation: + diminished lung sounds and + crackles ( right base and left posterior dominguez) Gastrointestinal (Abdomen): Inspection/Auscultation: normal bowel sounds Percussion/Palpation: abdomen soft; abdomen nontender Musculoskeletal: Extremities: strength 5/5 throughout Skin: no rashes, warm and dry Neurologic: mena, fluent speech, no tremor Results & Data Vital Signs (Past 12 Hours) Vital Signs Temp Pulse Pulse Resp BP BP Pulse Ox 07/08/22 07:15 117 H 07/08/22 07:24 36.6 C 103 H 20 105/73 96 07/08/22 03:48 96 H 18 106/63 93 07/07/22 23:05 81 07/07/22 22:53 36.3 C L 85 18 125/81 95 07/07/22 21:40 87 19 97 07/07/22 21:30 79 14 95 07/07/22 21:20 86 15 96 07/07/22 21:43 36.7 C 87 17 97 07/07/22 21:10 85 15 07/07/22 21:00 85 22 07/07/22 20:50 83 21 96 07/07/22 20:40 93 H 27 H 96 07/07/22 21:17 36.8 C 74 22 96 O2 Del Method 07/08/22 07:15 07/08/22 07:24 Room Air 07/08/22 03:48 Room Air 07/07/22 23:05 07/07/22 22:53 Room Air 07/07/22 21:40 07/07/22 21:30 07/07/22 21:20 07/07/22 21:43 Room Air 07/07/22 21:10 07/07/22 21:00 07/07/22 20:50 07/07/22 20:40 07/07/22 21:17 Room Air Laboratory Results 07/08/22 05:13 07/08/22 11:59 Diagnostic Findings cxr 1. Small left pleural effusion with asymmetric interstitial thickening and hazy opacity within the left lower lung. No pneumothorax. 2. Left apical paramediastinal mass-like opacity. This is nonspecific and could reflect a mass, lymphadenopathy or loculated pleural fluid. Head CT unremarkable
[2022-07-08] MEDS ORDERED: BENZOCAINE 20% (ORAJEL) 11.9 GM TUBE MT PRN (12:20)
[2022-07-08 13:08] LABS: BUN Creatinine Ratio 15.5 (10-20); Calcium 7.8 mg/dl (8.6-10.3); Creatinine Clr Calc Pharmacy 51.2 ml/min; Est GFR (African American) 69.6 ml/min; Potassium 3.4 mmol/L (3.5-5.1)
--- NOTE | 2022-07-08 14:21 | Hospitalist Progress Note ---
Date of Service July 08, 2022 Assessment & Plan (1) Acute hyponatremia: (2) Altered mental status: (3) Acute hypokalemia: (4) Hypomagnesemia: (5) Endometrial cancer: (6) Abnormal TSH: (7) HTN (hypertension): (8) GERD (gastroesophageal reflux disease): Plan: Assessment and plan per Dr. Marrero. See addendum Plan Hypotonic hyponatremia Likely multifactorial secondary to poor oral intake, medications, polydipsia, hypothyroidism, NSAIDs use Serum osmolality 247, urine osmolality 120, urine sodium less than 10 Sodium level 117>122>118 Received IV fluids in ED Started on 3% hypertonic saline Appreciate nephrology input Monitor sodium levels closely We will transfer her to PCU for closer monitoring Acute metabolic encephalopathy Likely secondary to hyponatremia Ruled out UTI CT head:No acute findings in the head/brain. Urine culture negative Empirically received Rocephin Suspected Left apical lung mass CXR:Small left pleural effusion with asymmetric interstitial thickening and hazy opacity within the left lower lung. No pneumothorax. Left apical paramediastinal mass-like opacity. This is nonspecific and could reflect a mass, lymphadenopathy or loculated pleural fluid. Will need follow up with Oncology as outpatient Hypomagnesemia Hypokalemia Replete electrolytes as needed Hypothyroidism Continue levothyroxine Needs thyroid function as outpatient Hypertension BP initially elevated, now relatively low On losartan Monitor and adjust medications as needed Metastatic endometrial cancer S/P hysterectomy H/O MalignantLeft pleural effusion S/P drainage Hold immunotherapy (Keytruda, lenvatinib) meds for now DVT Px: Lovenox SQ Code Status Full code Admission and Anticipated Discharge Date Admission Date: July 07, 2022 Subjective Patient is seen and examined at bedside States having mouth, Tongue soreness Poor appetite secondary to above Mental status improved but intermittently confused as per patient's at bedside Denies any chest pain, dyspnea, dizziness, nausea, vomiting Review of Systems Review of Systems: All systems reviewed & are unremarkable except as noted in Subjective Physical Exam Physical Exam: Physical Exam: Vitals signs as noted above General Appearance:Ill appearing, mild distress Head: normocephalic, Atraumatic Eyes: normal inspection, EOMI Neck: supple, Trachea midline Respiratory/Chest: Normal breath sounds, CTA, No accessory muscle use Cardiovascular: S1, S2, +murmur Abdomen/GI:Soft, Non tender, Bowel sounds present Extremities/Musculoskeletal:normal inspection, no edema Neurologic/Psych:AAOX3, grossly no focal neurological deficits, +Hearing impairment Skin: normal color, warm Results & Data Results & Data Vital Signs (Past 12 Hours) Vital Signs Temp Pulse Pulse Resp BP Pulse Ox O2 Del Method 07/08/22 07:15 117 H 07/08/22 07:24 36.6 C 103 H 20 105/73 96 Room Air 07/08/22 03:48 96 H 18 106/63 93 Room Air Laboratory Results Short CBC 07/07/22 07/08/22 Range/Units 18:20 05:13 WBC 9.53 9.07 (4.8-10.8) K/ul Hgb 14.6 15.0 (12.0-16.0) g/dl Hct 39.4 40.2 (37.0-47.0) % Plt Count 197 206 (130-400) K/uL BMP 07/07/22 07/08/22 07/08/22 18:20 00:19 05:13 Sodium 117 L* 120 L 122 L Potassium 3.1 L 3.6 Chloride 86 L 92 L Carbon Dioxide 20 L 21 BUN 16 13 Creatinine 1.05 0.87 Glucose 85 103 H Calcium 8.5 L 8.1 L 07/08/22 11:59 Sodium 118 L* Potassium 3.4 L Chloride 91 L Carbon Dioxide 18 L BUN 15 Creatinine 0.97 Glucose 122 H Calcium 7.8 L Urine 07/07/22 Range/Units 20:16 Urine Color Yellow Urine Appearance Cloudy A (Clear) Urine pH 5.5 (4.5-7.5) Ur Specific [place] 1.006 (1.000-1.030) Urine Protein 1+ H (Negative) Urine Glucose (UA) Negative (Negative) (2) Altered mental status Altered mental status type: disorientation Qualified Code(s): R41.0 - Disorientation, unspecified
[2022-07-08] MEDS ORDERED: SODIUM CHLORIDE 3 % 500 ML IV STA (14:31)
[2022-07-08] MEDS ORDERED: STAT IV STA (14:31)
[2022-07-08] MEDS ORDERED: SODIUM CHLORIDE 3 % 100 ML IV STA (14:48)
[2022-07-08] MEDS: POTASSIUM CHLORIDE / WTR 20 MEQ/100 ML PLCT IV SCH ×3 (16:10→19:51)
[2022-07-08] MEDS ORDERED: HEPARIN 100 UNIT/ML 5ML FLUSH FLUSH PRN (17:16)
[2022-07-08 19:48] LABS: BUN Creatinine Ratio 16.1 (10-20); Calcium 8.6 mg/dl (8.6-10.3); Creatinine Clr Calc Pharmacy 57.1 ml/min; Est GFR (African American) 79.3 ml/min; Est GFR (Non-African American) 68.5 ml/min
[2022-07-08] MEDS ORDERED: OLANZapine 10 MG/2.1 ML SDV IM STA (20:38)
--- NOTE | 2022-07-08 21:27 | Electrocardiogram Report ---
Test Reason : Blood Pressure : / mmHG Vent. Rate : 082 BPM Atrial Rate : 082 BPM P-R Int : 146 ms QRS Dur : 070 ms QT Int : 354 ms P-R-T Axes : 061 054 139 degrees QTc Int : 413 ms Poor data quality, interpretation may be adversely affected Normal sinus rhythm Nonspecific T wave abnormality Abnormal ECG When compared with ECG of 08-MAR-2022 00:23, Premature ventricular complexes are no longer Present Nonspecific T wave abnormality now evident in Inferior leads Nonspecific T wave abnormality now evident in Anterior leads Confirmed by Gabino Pollock ([id number]) on 07/08/2022 9:27:22 PM Referred By: Barbara Orellana Confirmed By:Gabino Pollock
[2022-07-09] MEDS: OLANZapine 10 MG/2.1 ML SDV IM PRN ×3 (00:34→23:53)
[2022-07-09] MEDS: cefTRIAXone SODIUM 2,000 MG in DEXTROSE 5% 50 ML IV SCH (01:46)
[2022-07-09] MEDS: LEVOTHYROXINE SODIUM 50 MCG TABLET PO SCH (06:32)
[2022-07-09 06:59] LABS: Hematocrit (blood only) 38.4 % (37.0-47.0); Hemoglobin 13.9 g/dl (12.0-16.0); Mean Corpuscular Hemoglobin 31.4 pg (25.0-34.0); Mean Corpuscular Hgb Conc 36.2 g/dL (32.0-36.0); Mean Corpuscular Volume 86.7 fL (80.0-100.0); Mean Platelet Volume 10.7 fL (9.4-12.4); Platelet Count 195 K/uL (130-400); RDW Coefficient of Variation 14.3 % (11.5-14.5); RDW Standard Deviation 45.3 fL (36.4-46.3); Red Blood Count 4.43 M/uL (4.20-5.40); White Blood Count 6.97 K/ul (4.8-10.8)
[2022-07-09 07:18] LABS: BUN Creatinine Ratio 13.9 (10-20); Calcium 8.7 mg/dl (8.6-10.3); Creatinine Clr Calc Pharmacy 61.9 ml/min; Est GFR (African American) 89.1 ml/min; Est GFR (Non-African American) 76.9 ml/min; Magnesium 1.7 mg/dl (1.7-2.4); Potassium 3.8 mmol/L (3.5-5.1)
[2022-07-09] MEDS: ENOXAPARIN INJ 40 MG/0.4 ML SYR SQ SCH (08:40)
[2022-07-09] MEDS: CYANOCOBALAMIN (B-12) 500 MCG TABLET PO SCH (08:40)
[2022-07-09] MEDS: PANTOprazole 40 MG TAB PO SCH (08:40)
[2022-07-09] MEDS: LOSARTAN POTASSIUM 50 MG TAB PO SCH (08:40)
[2022-07-09] MEDS: MULTIVITAMIN TAB PO SCH (08:41)
[2022-07-09] MEDS ORDERED: MAGNESIUM SULFATE / D5W 1 GM/100 ML BAG IV ONE ×2 (10:10→23:47)
[2022-07-09] MEDS ORDERED: POTASSIUM CHLORIDE CRTAB 20 MEQ TABCR PO ONE (10:11)
[2022-07-09] MEDS ORDERED: FUROSEMIDE INJ 20 MG/2 ML VIAL IV STA (10:27)
[2022-07-09] MEDS ORDERED: POTASSIUM CHLORIDE CRTAB 20 MEQ TABCR PO STA (10:27)
--- NOTE | 2022-07-09 10:33 | Nephrology Progress Note ---
Date of Service July 09, 2022 Assessment & Plan (1) Hyponatremia: Plan: Critical hypotonic hyponatremia with presenting serum sodium 117 on July 07 at 1800. Urine osms 120 and urine sodium less than 10 with serum osmolality 247 on admission. Hypotonic hyponatremia multifactorial in the setting of polydipsia due to stomatitis, with contribution from both pembrolizumab and lenvatinib, particularly the former. Patient was also using nonsteroidals prior to admis frances. -Correcting appropriately even quickly: Target is sodium 134 tomorrow AM, though if she is -Now on a heart healthy diet: Ordered a 1.5 L fluid limit for which protein shakes do not count. Please encourage protein shakes greater than Gatorade greater than water -BMP ordered 1300 > if 128 or better she could be discharged home with close outpatient follow-up from a kidney standpoint (see below) -maintain eukalemia -Continue to avoid NSAIDs -if sodium not correcting, hold losartan from a sodium standpoint alone she might be appropriate for discharge based on today's labs. However she is extremely confused. I personally watch the nurse and her negotiate with her for a few minutes to get her to use the bathroom in her room which appeared unfamiliar to her Tentative nephrology discharge recommendations (will continue to follow) > Check basic metabolic panel and mag 2 to 3 days after discharge by PCP or hematology or [facility] [place] environmental restoration planner can call nephro RN to order > Discharge on Lasix 20 mg twice daily with doses at least 4 hours apart - Discharge on fluid limit 1.5L daily for which protein shakes don't count - Must work at having protein shake or milkshake with protein powder twice daily if taking poor p.o./with ongoing stomatitis - Will need hospital discharge appointment with nephrology in 1 to 2 weeks Admission and Anticipated Discharge Date Admission Date: July 07, 2022 Subjective seen late this morning on rounds earlier today with at bedside; patient denies shortness of breath, swelling, nausea vomiting. Endorses ongoing poor p.o. Review of Systems Review of Systems: All systems reviewed & are unremarkable except as noted in Subjective Physical Exam Constitutional: well developed, well nourished and cooperative; no acute distress Eyes: EOM intact bilaterally ENMT: Ears: + hearing impairment; no external ear abnormality Nose: no external nose abnormality Mouth: + dry oral mucous membranes Neck: no nuchal rigidity Respiratory: normal respiratory effort Auscultation: + diminished lung sounds and + crackles ( right base and left posterior dominguez) Gastrointestinal (Abdomen): Inspection/Auscultation: normal bowel sounds Percussion/Palpation: abdomen soft; abdomen nontender Musculoskeletal: Extremities: strength 5/5 throughout right medial pretibial area tender to palpation with slight edema Skin: no rashes, warm and dry Neurologic: mena, fluent speech but confused at times; no tremor Results & Data Vital Signs (Past 12 Hours) Vital Signs Temp Pulse Pulse Resp BP Pulse Ox O2 Del Method 07/09/22 08:02 36.4 C L 111 H 17 124/82 97 Room Air 07/09/22 03:21 73 07/09/22 02:58 36.3 C L 108 H 19 123/72 97 Room Air 07/08/22 22:47 36.3 C L 100 H 18 113/54 L 96 Room Air Laboratory Results 07/09/22 06:29 07/09/22 06:29
--- NOTE | 2022-07-09 12:28 | Electrocardiogram Report ---
Test Reason : Blood Pressure : / mmHG Vent. Rate : 101 BPM Atrial Rate : 101 BPM P-R Int : 174 ms QRS Dur : 076 ms QT Int : 328 ms P-R-T Axes : 081 077 122 degrees QTc Int : 425 ms Sinus tachycardia with frequent Premature ventricular complexes Diffuse Nonspecific T wave abnormality Abnormal ECG When compared with ECG of 07-JUL-2022 18:01, Premature ventricular complexes are now Present Confirmed by Ji Mckeon ([id number]) on 07/09/2022 12:28:35 PM Referred By: Barbara Orellana Confirmed By:Ji Mckeon
--- NOTE | 2022-07-09 16:58 | Hospitalist Progress Note ---
Date of Service July 09, 2022 Assessment & Plan (1) Acute hyponatremia: (2) Altered mental status: (3) Acute hypokalemia: (4) Hypomagnesemia: (5) Endometrial cancer: (6) Abnormal TSH: (7) HTN (hypertension): (8) GERD (gastroesophageal reflux disease): Plan: Assessment and plan per Dr. Marrero. See addendum Plan Hypotonic hyponatremia Likely multifactorial secondary to poor oral intake, medications, polydipsia, hypothyroidism, NSAIDs use Serum osmolality 247, urine osmolality 120, urine sodium less than 10 Sodium level 117>122>118>124>128 Received Hypertonic saline Appreciate nephrology input Monitor sodium levels closely On fluid restriction Received a dose of Lasix Needs follow-up with nephrology with labs upon discharge Acute metabolic encephalopathy Likely secondary to hyponatremia Ruled out UTI CT head:No acute findings in the head/brain. Urine culture negative Empirically received Rocephin Symptomatic PVCs Monitor and replace electrolytes as needed Consider starting on beta-dayanara if persistently tachycardic and blood pressure accomodates Suspected Left apical lung mass CXR:Small left pleural effusion with asymmetric interstitial thickening and hazy opacity within the left lower lung. No pneumothorax. Left apical paramediastinal mass-like opacity. This is nonspecific and could reflect a mass, lymphadenopathy or loculated pleural fluid. Will need follow up with Oncology as outpatient Hypomagnesemia Hypokalemia Replete electrolytes as needed Hypothyroidism Continue levothyroxine Needs thyroid function as outpatient Hypertension BP initially elevated, now relatively low On losartan Monitor and adjust medications as needed Metastatic endometrial cancer S/P hysterectomy H/O MalignantLeft pleural effusion S/P drainage Hold immunotherapy (Keytruda, lenvatinib) meds for now DVT Px: Lovenox SQ Code Status Full code Admission and Anticipated Discharge Date Admission Date: July 07, 2022 Subjective Patient is seen and examined at bedside Sitting in chair during my encounter Reports intermittent palpitations Poor appetite Mental status improved Denies any chest pain, dyspnea, dizziness, nausea, vomiting Discussed with patient's at bedside Review of Systems Review of Systems: All systems reviewed & are unremarkable except as noted in Subjective Physical Exam Physical Exam: Physical Exam: Vitals signs as noted above General Appearance:Ill appearing, mild distress Head: normocephalic, Atraumatic Eyes: normal inspection, EOMI Neck: supple, Trachea midline Respiratory/Chest: Normal breath sounds, CTA, No accessory muscle use Cardiovascular: S1, S2, +murmur Abdomen/GI:Soft, Non tender, Bowel sounds present Extremities/Musculoskeletal:normal inspection, no edema Neurologic/Psych:AAOX3, grossly no focal neurological deficits, +Hearing impairment Skin: normal color, warm Results & Data Results & Data Vital Signs (Past 12 Hours) Vital Signs Temp Pulse Pulse Resp BP BP Pulse Ox 07/09/22 16:14 96 H 07/09/22 15:15 86 16 108/70 99 07/09/22 11:02 36.4 C L 07/09/22 10:59 89 18 104/68 98 07/09/22 08:02 36.4 C L 111 H 17 124/82 97 O2 Del Method 07/09/22 16:14 07/09/22 15:15 Room Air 07/09/22 11:02 07/09/22 10:59 Room Air 07/09/22 08:02 Room Air Laboratory Results Short CBC 07/09/22 Range/Units 06:29 WBC 6.97 (4.8-10.8) K/ul Hgb 13.9 (12.0-16.0) g/dl Hct 38.4 (37.0-47.0) % Plt Count 195 (130-400) K/uL BMP 07/08/22 07/09/22 18:54 06:29 Sodium 124 L 128 L Potassium 4.0 3.8 Chloride 92 L 97 L Carbon Dioxide 22 22 BUN 14 11 Creatinine 0.87 0.79 Glucose 97 106 H Calcium 8.6 8.7 (2) Altered mental status Altered mental status type: disorientation Qualified Code(s): R41.0 - Disorientation, unspecified
[2022-07-09] MEDS ORDERED: ALBUMIN 25% 100 mL 25 GM/100 ML VIAL IV ONE (23:47)
[2022-07-10] MEDS: POTASSIUM CHLORIDE / WTR 10 MEQ/100 ML PLCT IV SCH ×2 (00:06→01:30)
[2022-07-10] MEDS ORDERED: OLANZapine 10 MG/2.1 ML SDV IM STA (00:46)
[2022-07-10] MEDS ORDERED: METOPROLOL TARTRATE 1 MG/ML VIAL IV STA (00:49)
[2022-07-10] MEDS: LEVOTHYROXINE SODIUM 50 MCG TABLET PO SCH (06:19)
[2022-07-10 07:40] LABS: BUN Creatinine Ratio 12.8 (10-20); Calcium 9.3 mg/dl (8.6-10.3); Est GFR (African American) 90.5 ml/min; Est GFR (Non-African American) 78.1 ml/min; Potassium 4.1 mmol/L (3.5-5.1)
[2022-07-10] MEDS: LOSARTAN POTASSIUM 50 MG TAB PO SCH (09:03)
[2022-07-10] MEDS: ENOXAPARIN INJ 40 MG/0.4 ML SYR SQ SCH (09:03)
[2022-07-10] MEDS: CYANOCOBALAMIN (B-12) 500 MCG TABLET PO SCH (09:03)
[2022-07-10] MEDS: PANTOprazole 40 MG TAB PO SCH (09:03)
[2022-07-10] MEDS: MULTIVITAMIN TAB PO SCH (09:03)
--- NOTE | 2022-07-10 12:34 | Nephrology Progress Note ---
Date of Service July 10, 2022 Assessment & Plan Admission and Anticipated Discharge Date Admission Date: July 07, 2022 Subjective Assessment & Plan (1) Hyponatremia: Plan: Critical hypotonic hyponatremia with presenting serum sodium 117 on July 07 at 1800. Urine osms 120 and urine sodium less than 10 with serum osmolality 247 on admission. Hypotonic hyponatremia multifactorial in the setting of polydipsia due to stomatitis, with contribution from both pembrolizumab and lenvatinib, particularly the former. Patient was also using nonsteroidals prior to ad mission. -Correcting appropriately -Now on a heart healthy diet: Ordered a 1.5 L fluid limit for which protein shakes do not count. Daily BMP from now. she can be discharged home with close outpatient follow-up from a kidney standpoint -Continue to avoid NSAIDs nephrology discharge recommendations Check basic metabolic panel and mag 2 to 3 days after discharge by PCP or hematology or [facility] [place] conservation planner can call nephro RN to order for the last 2 months Na has been from 125--130 range anyway. Discharge on fluid limit 1.5L daily for which protein shakes don't count No lasix. No salt tab and no Urea. Will accept Serum Na as long as > 125. Msot of her BP has been on low side So D/c Losartan at discharge. Must work at having protein shake or milkshake with protein powder twice daily if taking poor p.o./with ongoing stomatitis Will need hospital discharge appointment with nephrology in 1 to 2 weeks Subjective seen late this morning on rounds earlier today with at bedside; patient denies shortness of breath, swelling, nausea vomiting. Endorses ongoing poor p.o. Review of Systems Review of Systems: All systems reviewed & are unremarkable except as noted in Subjective Physical Exam Constitutional: well developed, well nourished and cooperative; no acute distress Eyes: EOM intact bilaterally ENMT: Ears: + hearing impairment; no external ear abnormality Nose: no external nose abnormality Mouth: + dry oral mucous membranes Neck: no nuchal rigidity Respiratory: normal respiratory effort Auscultation: + diminished lung sounds and + crackles ( right base and left posterior dominguez) Gastrointestinal (Abdomen): Inspection/Auscultation: normal bowel sounds Percussion/Palpation: abdomen soft; abdomen nontender Musculoskeletal: Extremities: strength 5/5 throughout right medial pretibial area tender to palpation with slight edema Skin: no rashes, warm and dry Neurologic: mena, fluent speech but confused at times; no tremor Results & Data Vital Signs (Past 12 Hours) Vital Signs Temp Pulse Pulse Resp BP BP BP 07/10/22 12:26 80 18 102/69 07/10/22 07:15 115 H 07/10/22 07:26 36.5 C 92 H 18 117/95 07/10/22 03:49 36.5 C 105 H 18 134/71 07/10/22 00:56 140 H 145/72 H Pulse Ox O2 Del Method 07/10/22 12:26 99 Room Air 07/10/22 07:15 07/10/22 07:26 97 Room Air 07/10/22 03:49 98 Room Air 07/10/22 00:56
--- NOTE | 2022-07-10 13:16 | Hospitalist Progress Note ---
Date of Service July 10, 2022 Assessment & Plan (1) Acute hyponatremia: (2) Altered mental status: (3) Acute hypokalemia: (4) Hypomagnesemia: (5) Endometrial cancer: (6) Abnormal TSH: (7) HTN (hypertension): (8) GERD (gastroesophageal reflux disease): Plan: Assessment and plan per Dr. Marrero. See addendum Plan Hypotonic hyponatremia Likely multifactorial secondary to poor oral intake, medications, polydipsia, hypothyroidism, NSAIDs use Serum osmolality 247, urine osmolality 120, urine sodium less than 10 Sodium level 117>122>118>124>128>130 Received Hypertonic saline Appreciate nephrology input Monitor sodium levels closely On fluid restriction Received a dose of Lasix Needs follow-up with nephrology with labs upon discharge Acute metabolic encephalopathy Likely secondary to hyponatremia Delirium contributed as well Ruled out UTI CT head:No acute findings in the head/brain. Urine culture negative Discontinue Rocephin Reorient frequently to miimize delirium Symptomatic PVCs Monitor and replace electrolytes as needed Consider starting on beta-dayanara if persistently tachycardic and blood pressure accommodates Tachycardia resolved Suspected Left apical lung mass CXR:Small left pleural effusion with asymmetric interstitial thickening and hazy opacity within the left lower lung. No pneumothorax. Left apical paramediastinal mass-like opacity. This is nonspecific and could reflect a mass, lymphadenopathy or loculated pleural fluid. Will need follow up with Oncology as outpatient Hypomagnesemia Hypokalemia Replete electrolytes as needed Hypothyroidism Continue levothyroxine Needs thyroid function as outpatient Hypertension BP initially elevated, now relatively low On losartan--Plan to DC upon discharge Monitor and adjust medications as needed Metastatic endometrial cancer S/P hysterectomy H/O MalignantLeft pleural effusion S/P drainage Hold immunotherapy (Keytruda, lenvatinib) meds for now protein-calorie malnutrition Continue Protein shakes DVT Px: Lovenox SQ Code Status Full code Admission and Anticipated Discharge Date Admission Date: July 07, 2022 Subjective Patient is seen and examined at bedside Delirious over night and received Zyprexa Discussed with patient's at bedside Family prefers to be discharged home Discussed with Nephrology today Review of Systems Review of Systems: All systems reviewed & are unremarkable except as noted in Subjective Physical Exam Physical Exam: Physical Exam: Vitals signs as noted above General Appearance:Ill appearing, no distress Head: normocephalic, Atraumatic Eyes: normal inspection, EOMI Neck: supple, Trachea midline Respiratory/Chest: Normal breath sounds, CTA, No accessory muscle use Cardiovascular: S1, S2, +murmur Abdomen/GI:Soft, Non tender, Bowel sounds present Extremities/Musculoskeletal:normal inspection, no edema Neurologic/Psych:AAO, grossly no focal neurological deficits, +Hearing impairment Skin: normal color, warm Results & Data Results & Data Vital Signs (Past 12 Hours) Vital Signs Temp Pulse Pulse Resp BP BP Pulse Ox 07/10/22 12:26 80 18 102/69 99 07/10/22 07:15 115 H 07/10/22 07:26 36.5 C 92 H 18 117/95 97 07/10/22 03:49 36.5 C 105 H 18 134/71 98 O2 Del Method 07/10/22 12:26 Room Air 07/10/22 07:15 07/10/22 07:26 Room Air 07/10/22 03:49 Room Air Laboratory Results BMP 07/10/22 06:27 Sodium 130 L Potassium 4.1 Chloride 99 Carbon Dioxide 21 BUN 10 Creatinine 0.78 Glucose 108 H Calcium 9.3 (2) Altered mental status Altered mental status type: disorientation Qualified Code(s): R41.0 - Disorientation, unspecified
--- NOTE | 2022-07-10 13:37 | Discharge Summary ---
Date of Service July 10, 2022 Admission HPI Per Admitting Provider Patient 66-year-old female with PMH Endometrial cancer s/p total hysterectomy, chemo, HTN, CKD III PVD, fatty liver presented to ER with complaint of abnormal labs. Patient with outpatient labs from today with sodium of 118 and referred to ER. History obtained from chart review, patient as well as patient's and patient's daughter who are at bedside. Patient states that she has been feeling very tired for the past 3 weeks. Also reports generalized weakness. She states she is on Keytruda and lenvatinib. Last treatment Keytruda on 07/05/2022. Lenvatinib is currently being held secondary to patient having soreness of tongue and decreased eating secondary to mouth soreness. Patient states has been drinking fluids. Family note patient seems more tired today than she has the past couple of weeks. They also note she has been having some trouble thinking today. Patient with noted abnormal TSH on outpatient labs and she started levothyroxine 50 mcg today. Denies fever/chills, diaphoresis, N/V/D/C, WALKER, dizziness, syncope, vision changes, neck pain, CP, SOB, orthopnea, palpitations, cough, sore throat, choking, otalgia, rhinorrhea, abdominal pain, paresthesias, extremity edema, rashes, urinary symptoms. Outpatient chart reviewed. Sodium of 118 today, 128 on 07/05, 132 on 06/14, 125 on 06/13/22 Admission Exam Per Admitting Provider General: no distress, WDWN Head: normocephalic, atraumatic Eyes: conjunctiva non-injected, anicteric ENT: normal inspection external ears, nose, mucous membranes moist Neck: supple, trachea midline, non-tender Lungs: clear, no respiratory distress, no wheezing/rhonchi/rales CV: RRR, + murmur, no pretibial edema Abd: normal BS, soft, non-tender Ext: no cyanosis, no calf tenderness Neuro: +drowsy, awakens to voice. oriented to person and place. Thinks its 2020 and initially does not know the month, then says it is spring. no focal deficits noted, normal affect Skin: warm, dry Principal Diagnosis Hypotonic hyponatremia Acute metabolic encephalopathy Delirium Suspected Left apical lung mass Hypomagnesemia Hypokalemia Discharge Data Allergies Allergy/AdvReac Type Severity Reaction Status Date / Time erythromycin base Allergy Mild NAUSEA/VOMI Verified 07/07/22 19:15 TTING Iodinated Contrast Media Allergy Unknown edema,hives Verified 07/07/22 19:15 ,other red dye Allergy Hives Verified 07/07/22 19:15 Consultations 07/07/22 19:05 ED Decision to Admit Stat 07/08/22 08:14 Consult Nephrology Routine Procedures Performed Laboratory Results WBC 6.97 K/ul (4.8-10.8) 07/09/22 06:29 RBC 4.43 M/uL (4.20-5.40) 07/09/22 06:29 Hgb 13.9 g/dl (12.0-16.0) 07/09/22 06:29 Hct 38.4 % (37.0-47.0) 07/09/22 06:29 MCV 86.7 fL (80.0-100.0) 07/09/22 06:29 MCH 31.4 pg (25.0-34.0) 07/09/22 06:29 MCHC 36.2 g/dL (32.0-36.0) H 07/09/22 06:29 RDW Std Deviation 45.3 fL (36.4-46.3) 07/09/22 06:29 RDW Coeff of [place] 14.3 % (11.5-14.5) 07/09/22 06:29 Plt Count 195 K/uL (130-400) 07/09/22 06:29 MPV 10.7 fL (9.4-12.4) 07/09/22 06:29 Immature Gran % (Auto) 0.3 % 07/08/22 05:13 Neut % (Auto) 75.0 % 07/08/22 05:13 Lymph % (Auto) 15.1 % 07/08/22 05:13 [place] % (Auto) 8.5 % 07/08/22 05:13 Eos % (Auto) 0.8 % 07/08/22 05:13 Baso % (Auto) 0.3 % 07/08/22 05:13 Neut # (Auto) 6.80 K/uL (1.40-6.50) H 07/08/22 05:13 Lymph # (Auto) 1.37 K/uL (1.2-3.4) 07/08/22 05:13 [place] # (Auto) 0.77 K/uL (0.11-0.59) H 07/08/22 05:13 Eos # (Auto) 0.07 K/uL (0-0.50) 07/08/22 05:13 Baso # (Auto) 0.03 K/uL (0-0.2) 07/08/22 05:13 Immature Gran # (Auto) 0.03 K/uL (0.01-0.20) 07/08/22 05:13 Sodium 130 mmol/L (136-145) L 07/10/22 06:27 Potassium 4.1 mmol/L (3.5-5.1) 07/10/22 06:27 Chloride 99 mmol/L (98-107) 07/10/22 06:27 Carbon Dioxide 21 mmol/L (21-32) 07/10/22 06:27 Anion Gap 10 (3-11) 07/10/22 06:27 BUN 10 mg/dl (6-23) 07/10/22 06:27 Creatinine 0.78 mg/dl (0.6-1.2) 07/10/22 06:27 Est Cr Clr Drug Dosing 63.0 ml/min 07/10/22 06:27 Est GFR ( Amer) 90.5 ml/min 07/10/22 06:27 Est GFR (Non-Af Amer) 78.1 ml/min 07/10/22 06:27 BUN/Creatinine Ratio 12.8 (10-20) 07/10/22 06:27 Glucose 108 mg/dl (70-99(Fasting)) H 07/10/22 06:27 POC Glucose 98 mg/dl (70-99) 07/07/22 18:00 Osmolality 247 mOsm/kg (280-300) L 07/07/22 18:20 Calcium 9.3 mg/dl (8.6-10.3) 07/10/22 06:27 Magnesium 2.0 mg/dl (1.7-2.4) 07/10/22 06:27 Procalcitonin 0.05 ng/ml (0-0.5) 07/09/22 06:29 TSH Cancelled 07/07/22 18:20 Urine Color Yellow 07/07/22 20:16 Urine Appearance Cloudy (Clear) A 07/07/22 20:16 Urine pH 5.5 (4.5-7.5) 07/07/22 20:16 Ur Specific [place] 1.006 (1.000-1.030) 07/07/22 20:16 Urine Protein 1+ (Negative) H 07/07/22 20:16 Urine Glucose (UA) Negative (Negative) 07/07/22 20:16 Urine Ketones Negative (Negative) 07/07/22 20:16 Urine Blood 1+ (Negative) H 07/07/22 20:16 Urine Nitrite Negative (Negative) 07/07/22 20:16 Urine Bilirubin Negative (Negative) 07/07/22 20:16 Urine Urobilinogen Negative (Negative) 07/07/22 20:16 Ur Leukocyte Esterase 1+ (Negative) H 07/07/22 20:16 Urine WBC (Auto) >30 /hpf (0-5) H 07/07/22 20:16 Urine RBC (Auto) 0-4 /hpf (0-4) 07/07/22 20:16 U Hyaline Cast (Auto) 1-5 /lpf (0-5) 07/07/22 20:16 U Epithel Cells (Auto) >30 /lpf (0-5) H 07/07/22 20:16 Urine Bacteria (Auto) Negative (Negative) 07/07/22 20:16 Urine Osmolality 120 mOsm/kg (500-800) L 07/07/22 20:16 Ur Random Sodium < 10 mmol/L 07/07/22 20:16 SARS-CoV-2, RNA, NAAT NEGATIVE (NEGATIVE) 07/07/22 18:47 Impressions Chest X-Ray 07/07/22 19:12 XR chest 1V portable CLINICAL HISTORY: hyponatremia, tachypnea COMPARISON STUDY: Chest CT March 08, 2022 and chest radiograph March 09, 2022. FINDINGS: A right pleural effusion is noted. There is a left apical paramediastinal mass-like density which is developed since prior examination. Asymmetric interstitial thickening within the left lung is noted. There is hazy left basilar opacity. No airspace opacities within the right lung are present. There is no evidence for pulmonary edema. There is mild left lung volume loss. IMPRESSION: 1. Small left pleural effusion with asymmetric interstitial thickening and hazy opacity within the left lower lung. No pneumothorax. 2. Left apical paramediastinal mass-like opacity. This is nonspecific and could reflect a mass, lymphadenopathy or loculated pleural fluid. ACT 112: Negative or not required by law. Electronically signed by: Gigi Lloyd M.D. 07/08/2022 6:[address] 07/07/22 20:46 Exam(s): CT HEAD Without Contrast EXAM: CT Head Without Intravenous Contrast CLINICAL HISTORY: Reason for exam: ams. TECHNIQUE: Axial computed tomography images of the head/brain without intravenous contrast. CTDI is 37.69 mGy and DLP is 691.05 mGy-cm. Automated exposure control was utilized for the study. A dose lowering technique was utilized adhering to the principles of ALARA. COMPARISON: Dated 07/30/21 FINDINGS: Brain: The cerebral and cerebellar sulci are mildly prominent consistent with mild brain atrophy. There are a few areas of decreased attenuation in the deep cerebral white matter consistent with mild small vessel ischemic/degenerative changes. No hemorrhage. Ventricles: Unremarkable. No ventriculomegaly. Bones/joints: Unremarkable. No acute fracture. Soft tissues: Unremarkable. Vasculature: Atherosclerotic disease. Sinuses: Unremarkable as visualized. No acute sinusitis. Mastoid air cells: Unremarkable as visualized. No mastoid effusion. IMPRESSION: No acute findings in the head/brain. Electronically signed by: Asad Tony MD 07/07/22 23:25 PM Ordered Studies 07/07/22 20:46 CT head/brain wo con Urgent Hospital Course (1) Acute hyponatremia: (2) Altered mental status: (3) Acute hypokalemia: (4) Hypomagnesemia: (5) Endometrial cancer: (6) Abnormal TSH: (7) HTN (hypertension): (8) GERD (gastroesophageal reflux disease): Assessment and plan per Dr. Marrero. See addendum Plan Hypotonic hyponatremia Likely multifactorial secondary to poor oral intake, medications, polydipsia, hypothyroidism, NSAIDs use Serum osmolality 247, urine osmolality 120, urine sodium less than 10 Sodium level 117>122>118>124>128>130 Received Hypertonic saline Appreciate nephrology input Monitor sodium levels closely On fluid restriction Received a dose of Lasix Needs follow-up with nephrology with labs upon discharge Acute metabolic encephalopathy Likely secondary to hyponatremia Delirium contributed as well Ruled out UTI CT head:No acute findings in the head/brain. Urine culture negative Discontinue Rocephin Reorient frequently to miimize delirium Symptomatic PVCs Monitor and replace electrolytes as needed Consider starting on beta-dayanara if persistently tachycardic and blood pressure accommodates Tachycardia resolved Suspected Left apical lung mass CXR:Small left pleural effusion with asymmetric interstitial thickening and hazy opacity within the left lower lung. No pneumothorax. Left apical paramediastinal mass-like opacity. This is nonspecific and could reflect a mass, lymphadenopathy or loculated pleural fluid. Will need follow up with Oncology as outpatient Hypomagnesemia Hypokalemia Replete electrolytes as needed Hypothyroidism Continue levothyroxine Needs thyroid function as outpatient Hypertension BP initially elevated, now relatively low On losartan--Plan to DC upon discharge Monitor and adjust medications as needed Metastatic endometrial cancer S/P hysterectomy H/O MalignantLeft pleural effusion S/P drainage Hold immunotherapy (Keytruda, lenvatinib) meds for now protein-calorie malnutrition Continue Protein shakes DVT Px: Lovenox SQ Code Status Full code Total Time Total Time Spent Total Time Spent (In Minutes): 56 minutes Discharge Plan Discharge Items Patient Disposition: Home - Self-Care Reason For Visit: HYPONTAREMIA Discharge Diagnosis: Hypotonic hyponatremia Acute metabolic encephalopathy Delirium Suspected Left apical lung mass Hypomagnesemia Hypokalemia Activity: Per Instructions section Exercise/Sports: Gradually increase as tolerated Non-emergency contact: Primary Care Provider, Credit Review Officer and Oncologist Call non-emergency contact if: you have any medication questions, your symptoms worsen, your pain is concerning for you and you have a fever Follow-up/Referrals: Carlos Low MD [Primary Care Provider] - (Date & Time 07/14/2022 11:30 AM Provider Nasreen Green PA-C Department Family Medicine [facility] ) Luis Felipe Schmid MD [Surgeon] - (Date & Time 08/02/2022 9:00 AM Provider [facility] Diet: Heart Healthy Fluids: 1500ml (6 cups) Addtl Attending Provider Instructions: Follow-up with your primary care physician on 07/14/2022 11:30 AM Follow-up with your digital marketing intern on 08/02/2022 9:00 AM as scheduled Follow-up with your oncologist in 1 to 2 weeks for further evaluation of Left apical lung mass ---Obtain blood test (Basic metabolic panel and Magnesium) in 3 days and follow- up with your primary care physician/digital marketing intern for further recommendations --- Continue fluid restriction to limit at 1.5 L/day which protein shakes do not count --Your losartan, lasix are discontinued as your blood pressure has been low. Further recommendations as per your primary care physician. --Take protein shake or milkshake with protein powder twice daily if your oral food intake remains poor. Seek immediate medical attention if your symptoms reoccur or worsen Please take all medications as instructed on discharge list below. Please call if you have any questions or problems. You can reach a [facility] hospitalist on duty at [facility] 24 hours a day by calling [phone] Pending Studies at Discharge: No Stand-Alone Forms: My [facility], Smoking Cessation Medications and DC Order Prescriptions: [place]riCaine 20 % Gel 1 applic MT TID PRN (Reason: mouth irritation) Qty: 28.4 0RF Continued omeprazole 20 mg Capsule,Delayed Release(Dr/Ec) 20 mg PO QAM multivitamin Tablet 1 tab PO DAILY diclofenac sodium 1 % gel 2 g TOPICAL QID PRN (Reason: Pain) levothyroxine 50 mcg tablet 50 mcg PO DAILYBB fluoride (sodium) 1.1 % gel 1 applic dental HS cyanocobalamin (vitamin B-12) [Vitamin B-12] 500 mcg Tablet 500 mcg PO DAILY cholecalciferol (vitamin D3) [Vitamin D3] 125 mcg (5,000 unit) Tablet 125 mcg PO DAILY urea 20 % Cream 1 applic TOPICAL BID Rx Instructions: apply to hands and feet lenvatinib 20 mg/day (10 mg x 2) Capsule 20 mg PO QAM Discontinued furosemide 20 mg tablet 20 mg PO QAM losartan 50 mg tablet 50 mg PO QAM Discharge Orders: Discharge Order (Routine); Ordered 07/10/22 Ordered By: Yury Vasquez Admission Data Admit Date/Time: 07/07/22 20:48 Attending Provider: Yury Vasquez Admit Provider: Jonathan Marrero Primary Care Provider: Carlos Low Other Providers: Jonathan Marrero ; Mraiana Palmer
== END 2022-07-10 15:14 | disposition home or self-care (01) | DRG 640 ==
LOC: ED 17:38 → 2W 20:48 → 2E 07-08 15:44

== ENCOUNTER 2022-08-26 21:31 | Observation (INO) ==
[2022-08-26] MEDS ORDERED: ONDANSETRON INJ 2 MG/ML 2 ML VIAL IV STA (22:13)
[2022-08-26] MEDS ORDERED: fentaNYL citrate PF 100 MCG/2 ML VIAL IV PRN (22:13)
[2022-08-26] MEDS ORDERED: SODIUM CHLORIDE 0.9% 1000ML 1,000 ML IV STA (22:13)
[2022-08-26 23:50] LABS: Basophils # (auto) 0.03 K/uL (0-0.2); Basophils % (auto) 0.2 %; Hematocrit (blood only) 37.7 % (37.0-47.0); Hemoglobin 13.1 g/dl (12.0-16.0); Immature Granulocytes # (auto) 0.09 K/uL (0.01-0.20); Immature Granulocytes % (auto) 0.6 %; Lymphocytes # (auto) 2.27 K/uL (1.2-3.4); Lymphocytes % (auto) 14.1 %; Mean Corpuscular Hgb Conc 34.7 g/dL (32.0-36.0); Mean Corpuscular Volume 89.1 fL (80.0-100.0); Mean Platelet Volume 10.4 fL (9.4-12.4); Monocytes # (auto) 1.53 K/uL (0.11-0.59); Monocytes % (auto) 9.5 %; Neutrophils # (auto) 12.17 K/uL (1.40-6.50); Neutrophils % (auto) 75.6 %; Platelet Count 325 K/uL (130-400); RDW Coefficient of Variation 14.3 % (11.5-14.5); RDW Standard Deviation 46.3 fL (36.4-46.3); Red Blood Count 4.23 M/uL (4.20-5.40); White Blood Count 16.09 K/ul (4.8-10.8)
[2022-08-26 23:59] LABS: Appearance Urine Turbid (Clear); Bacteria Urine Automated 2+ (Negative); Blood Urine 1+ (Negative); Color Urine Dark Yellow; Epithelial Cell Urine Auto >30 /lpf (0-5); Glucose Urine UA Negative (Negative); Ketones Urine Trace (Negative); Leukocyte Esterase Urine 2+ (Negative); Nitrite Urine Positive (Negative); Protein Urine Trace (Negative); Specific Gravity Urine 1.022 (1.000-1.030); Urobilinogen Urine Negative (Negative); WBC Urine Automated >30 /hpf (0-5); pH Urine 5.5 (4.5-7.5)
[2022-08-27] LABS: Bilirubin Urine 1+ (Negative)
--- NOTE | 2022-08-27 | CT Scan Report ---
Exam(s): CT ABDOMEN + PELVIS Without Contrast EXAM: CT Abdomen and Pelvis Without Intravenous Contrast CLINICAL HISTORY: Reason for exam: abd pain. TECHNIQUE: Axial computed tomography images of the abdomen and pelvis without intravenous contrast. CTDI is 17.48 mGy and DLP is 765.36 mGy-cm. Automated exposure control was utilized for the study. A dose lowering technique was utilized adhering to the principles of ALARA. COMPARISON: No relevant prior studies available. FINDINGS: Lung bases: Unremarkable. No mass. No consolidation. Pleural space: Loculated left pleural effusion. Moderate simple appearing right pleural effusion. ABDOMEN: Liver: Cirrhotic morphology of the liver. Gallbladder and bile ducts: Unremarkable. No calcified stones. No ductal dilation. Pancreas: Unremarkable. No ductal dilation. Spleen: Unremarkable. No splenomegaly. Adrenals: Unremarkable. No mass. Kidneys and ureters: Unremarkable. No obstructing stones. No hydronephrosis. Stomach and bowel: Unremarkable. No obstruction. No mucosal thickening. PELVIS: Appendix: No findings to suggest acute appendicitis. Bladder: Unremarkable. No stones. Reproductive: Unremarkable as visualized. ABDOMEN and PELVIS: Intraperitoneal space: There is large volume ascites. Bones/joints: Degenerative changes of the thoracolumbar spine. No acute fracture. No dislocation. Soft tissues: There is an umbilical hernia containing ascites and fat. Vasculature: There is diffuse atherosclerotic calcification of the aorta and its major branch vessels. No abdominal aortic aneurysm. Lymph nodes: Unremarkable. No enlarged lymph nodes. IMPRESSION: 1. Cirrhosis and portal hypertension with large volume ascites. 2. Loculated left pleural effusion. 3. Moderate right pleural effusion. Electronically signed by: Asad Tony MD 08/26/22 23:58 PM
[2022-08-27 00:07] LABS: Anion Gap 9 (3-11); BUN Creatinine Ratio 17.3 (10-20); Blood Urea Nitrogen 18 mg/dl (6-23); Calcium 9.4 mg/dl (8.6-10.3); Carbon Dioxide 30 mmol/L (21-32); Chloride 95 mmol/L (98-107); Creatinine Clr Calc Pharmacy 42.2 ml/min; Est GFR (African American) 63.5 ml/min; Est GFR (Non-African American) 54.8 ml/min; Glucose 105 mg/dl (70-99(Fasting)); Potassium 4.5 mmol/L (3.5-5.1); Sodium 134 mmol/L (136-145)
[2022-08-27 00:17] LABS: Alanine Aminotransferase 16 U/L (7-52); Albumin Globulin Ratio 1.3 (0.9-2); Albumin Level 3.5 gm/dl (3.4-5.0); Alkaline Phosphatase 61 U/L (34-104); Aspartate Aminotransferase 22 U/L (13-39); Bilirubin,Total 0.4 mg/dl (0.2-1.0); Globulin 2.8 gm/dl (2.5-4.0); Lipase < 3 U/L (11-82); Total Protein 6.3 gm/dl (6.0-8.3)
--- NOTE | 2022-08-27 00:20 | Emergency Department Note ---
History of Present Illness General Chief complaint: Abdominal Pain Stated complaint: ABDOMINAL PAIN (STAGE IV ENDOMETRIAL CA) Time Seen by Provider: 08/26/22 21:53 History of Present Illness Maximum Pain Intensity: 10 This 67-year-old female with stage IV endometrial carcinoma on palliative care presents the ER complaining abdominal pain nausea, vomiting and no bowel movement. Patient states she has not been eating much. She tried stool softeners no relief. She is no longer on chemotherapy. Patient denies chest pain, dyspnea, fever, chills. Home Medications Medication Instructions Recorded Confirmed Type multivitamin 1 tab PO DAILY 07/30/21 08/26/22 History diclofenac sodium 1 % topical gel 2 g topical QID PRN Pain 03/08/22 08/26/22 History cholecalciferol (vitamin D3) 125 125 mcg PO DAILY 07/07/22 08/26/22 History mcg (5,000 unit) tablet (Vitamin D3) cyanocobalamin (vitamin B-12) 500 500 mcg PO DAILY 07/07/22 08/26/22 History mcg tablet (Vitamin B-12) levothyroxine 50 mcg tablet 50 mcg PO DAILYBB 07/07/22 08/26/22 History dexamethasone 4 mg tablet 4 mg PO QAM INCREASE APPETITE 08/26/22 08/26/22 History famotidine 20 mg tablet 20 mg PO QAM 08/26/22 08/26/22 History furosemide 20 mg tablet 20 mg PO DAILY PRN Fluid Retention 08/26/22 08/26/22 History losartan 50 mg tablet 50 mg PO QAM 08/26/22 08/26/22 History oxycodone-acetaminophen 5 mg-325 1 tab PO Q4H PRN Pain 08/26/22 08/26/22 History mg tablet Allergies Allergy/AdvReac Type Severity Reaction Status Date / Time Iodinated Contrast Media Allergy Severe edema,hives Verified 08/26/22 23:05 ,other red dye Allergy Intermediate Hives Verified 08/26/22 23:05 erythromycin base AdvReac Intermediate NAUSEA/VOMI Verified 08/26/22 23:05 TTING Past Med/Surg History Medical History Aortic stenosis Endometrial cancer GERD (gastroesophageal reflux disease) HTN (hypertension) Osteoarthritis Pleural effusion, left Surgical History History of cataract surgery LEFT 06/13/18: was given 2mg of versed Hx of dilation and curettage Hx of reduction of closed dislocation RIGHT WRIST Hx of tonsillectomy Social History Smoking Status: Never smoker Second Hand Exposure: No; Do You Dip or Chew Tobacco: No; Hx Alcohol Use: No Hx Substance Use: No Preferred Language: Romanian Communication Ability: Effective Communication Ability Comment: speak louder Crisis Clinician Required: No Beliefs That Will Affect Care: None marital status: Current Living Situation: Spouse Current Living Situation Comment: Lives at home with Feels Safe at Home: Yes Assistive Devices: None Review of Systems A total of 10 systems reviewed and were otherwise negative Physical Exam Vital Signs Vital Signs - 24 hr 08/26/22 21:38 08/26/22 21:38 08/26/22 22:06 Temperature 36.5 C 36.5 C Temperature Source Axillary Axillary Pulse Rate 92 H 94 H Pulse Rate [Apical] 91 H Respiratory Rate 21 21 Respiratory Effort / Characteristics Non-Labored Spontaneous Non-Labored Spontaneous Respiratory Depth Normal Normal Blood Pressure 119/80 Blood Pressure [Left Arm] 119/80 Blood Pressure Mean 93 Blood Pressure Mean [Left Arm] 93 Pulse Oximetry 97 97 Oxygen Delivery Method Room Air Room Air Sepsis Recent Fever Within 48 Hours No Sepsis New/Unexplained Change in Mental Status No Sepsis Action Taken by Nursing No Action Required 08/26/22 22:36 08/26/22 23:43 08/27/22 01:00 Temperature Temperature Source Pulse Rate Pulse Rate [Apical] 85 88 Respiratory Rate 18 18 Respiratory Effort / Characteristics Respiratory Depth Blood Pressure Blood Pressure [Left Arm] 124/78 101/80 Blood Pressure Mean Blood Pressure Mean [Left Arm] 93 87 Pulse Oximetry 95 96 96 Oxygen Delivery Method Room Air Room Air Room Air Sepsis Recent Fever Within 48 Hours Sepsis New/Unexplained Change in Mental Status Sepsis Action Taken by Nursing VITALS: Vitals are noted on the nurse's note and reviewed by myself. Vital signs stable. GENERAL: Pleasant female who appears in pain, in no acute distress, nondiaphoretic, well-developed well-nourished. SKIN: The skin was without rashes, erythema, edema, or bruising. There is no tenting of the skin. Capillary reflex less than 2 seconds. HEAD: Normocephalic atraumatic. EARS: External auditory canals clear, EYES: Pupils equal round and reactive to light and accommodation. Conjunctivae without injection, sclerae without icterus. Extraocular movements intact. NOSE: Patent, turbinates without inflammation or discharge. MOUTH: Mucous membranes moist. Pharynx without erythema or exudate. Uvula midline. Airway patent. Tongue does not deviate. NECK: Supple without nuchal rigidity. No lymphadenopathy. No thyromegaly. Cervical spine is nontender. No JVD. HEART: Regular rate and rhythm LUNGS: Clear to auscultation bilaterally without wheezes, rales or rhonchi. No retractions or accessory muscle use. ABDOMEN: Positive bowel sounds x 4. Normal tympanic percussion. Soft, tender mid abdomen with ascites present in hernia, without masses or organomegaly. Malone sign negative. No guarding or rebound tenderness. No CVA tenderness MUSCULOSKELETAL: No muscle atrophy, erythema, or edema noted. NEURO: Patient was alert and oriented to person place and time. Normal sensation to light and sharp touch. No focal neurological deficits. Course Administered Medications Fentanyl Citrate (Fentanyl Citrate Pf 100 Mcg/2 Ml Vial) 50 mcg IV Q15M PRN PRN Reason: Pain Stop: 09/09/22 22:12 Last Admin: 08/26/22 23:37 Dose: 50 mcg Documented By: FRED Discontinued Medications Sodium Chloride (Nss 1000ml) 1,000 mls @ 999 mls/hr IV .Q1H1M STA Stop: 08/26/22 23:13 Last Infusion: 08/26/22 23:42 Dose: 0 mls/hr Documented By: Admin: 08/26/22 22:30 Dose: 999 mls/hr Documented By: VIET Ceftriaxone Sodium (Rocephin) 2,000 mg in 70 mls @ 140 mls/hr IV NOW STA Stop: 08/27/22 00:50 Last Admin: 08/27/22 00:56 Dose: 140 mls/hr Documented By: FRED Ondansetron HCl (Ondansetron Inj 2 Mg/Ml 2 Ml Vial) 4 mg IV NOW STA Stop: 08/26/22 22:14 Last Admin: 08/26/22 22:23 Dose: 4 mg Documented By: VIET Medical Decision Making Medical Records Attestation: I reviewed the patient's medical records. Home Medications Current Medication List: was personally reviewed by me Laboratory Data Attestation: I reviewed the patient's lab results. 08/26/22 23:35 08/26/22 23:35 Lab Results 08/26/22 08/26/22 08/26/22 Range/Units 23:35 23:35 23:45 WBC 16.09 H (4.8-10.8) K/ul RBC 4.23 (4.20-5.40) M/uL Hgb 13.1 (12.0-16.0) g/dl Hct 37.7 (37.0-47.0) % MCV 89.1 (80.0-100.0) fL MCH 31.0 (25.0-34.0) pg MCHC 34.7 (32.0-36.0) g/dL RDW Std Deviation 46.3 (36.4-46.3) fL RDW Coeff of Khushbu 14.3 (11.5-14.5) % Plt Count 325 (130-400) K/uL MPV 10.4 (9.4-12.4) fL Immature Gran % (Auto) 0.6 % Neut % (Auto) 75.6 % Lymph % (Auto) 14.1 % [place] % (Auto) 9.5 % Eos % (Auto) 0.0 % Baso % (Auto) 0.2 % Neut # (Auto) 12.17 H (1.40-6.50) K/uL Lymph # (Auto) 2.27 (1.2-3.4) K/uL [place] # (Auto) 1.53 H (0.11-0.59) K/uL Eos # (Auto) 0.00 (0-0.50) K/uL Baso # (Auto) 0.03 (0-0.2) K/uL Immature Gran # (Auto) 0.09 (0.01-0.20) K/uL Sodium 134 L (136-145) mmol/L Potassium 4.5 (3.5-5.1) mmol/L Chloride 95 L (98-107) mmol/L Carbon Dioxide 30 (21-32) mmol/L Anion Gap 9 (3-11) BUN 18 (6-23) mg/dl Creatinine 1.04 (0.6-1.2) mg/dl Est Cr Clr Drug Dosing 42.2 ml/min Est GFR ( Amer) 63.5 ml/min Est GFR (Non-Af Amer) 54.8 ml/min BUN/Creatinine Ratio 17.3 (10-20) Glucose 105 H (70-99(Fasting)) mg/dl Calcium 9.4 (8.6-10.3) mg/dl Total Bilirubin 0.4 (0.2-1.0) mg/dl AST 22 (13-39) U/L ALT 16 (7-52) U/L Alkaline Phosphatase 61 (34-104) U/L Total Protein 6.3 (6.0-8.3) gm/dl Albumin 3.5 (3.4-5.0) gm/dl Globulin 2.8 (2.5-4.0) gm/dl Albumin/Globulin Ratio 1.3 (0.9-2) Lipase < 3 L (11-82) U/L Urine Color Dark Yellow Urine Appearance Turbid A (Clear) Urine pH 5.5 (4.5-7.5) Ur Specific [facility] 1.022 (1.000-1.030) Urine Protein Trace H (Negative) Urine Glucose (UA) Negative (Negative) Urine Ketones Trace H (Negative) Urine Blood 1+ H (Negative) Urine Nitrite Positive A (Negative) Urine Bilirubin 1+ H (Negative) Urine Urobilinogen Negative (Negative) Ur Leukocyte Esterase 2+ H (Negative) Urine WBC (Auto) >30 H (0-5) /hpf Urine RBC (Auto) 0-4 (0-4) /hpf U Hyaline Cast (Auto) 1-5 (0-5) /lpf U Epithel Cells (Auto) >30 H (0-5) /lpf Urine Bacteria (Auto) 2+ H (Negative) Urine Yeast Not Reportable SARS-CoV-2, RNA, NAAT (NEGATIVE) 08/27/22 Range/Units 00:45 WBC (4.8-10.8) K/ul RBC (4.20-5.40) M/uL Hgb (12.0-16.0) g/dl Hct (37.0-47.0) % MCV (80.0-100.0) fL MCH (25.0-34.0) pg MCHC (32.0-36.0) g/dL RDW Std Deviation (36.4-46.3) fL RDW Coeff of Khushbu (11.5-14.5) % Plt Count (130-400) K/uL MPV (9.4-12.4) fL Immature Gran % (Auto) % Neut % (Auto) % Lymph % (Auto) % [place] % (Auto) % Eos % (Auto) % Baso % (Auto) % Neut # (Auto) (1.40-6.50) K/uL Lymph # (Auto) (1.2-3.4) K/uL [place] # (Auto) (0.11-0.59) K/uL Eos # (Auto) (0-0.50) K/uL Baso # (Auto) (0-0.2) K/uL Immature Gran # (Auto) (0.01-0.20) K/uL Sodium (136-145) mmol/L Potassium (3.5-5.1) mmol/L Chloride (98-107) mmol/L Carbon Dioxide (21-32) mmol/L Anion Gap (3-11) BUN (6-23) mg/dl Creatinine (0.6-1.2) mg/dl Est Cr Clr Drug Dosing ml/min Est GFR ( Amer) ml/min Est GFR (Non-Af Amer) ml/min BUN/Creatinine Ratio (10-20) Glucose (70-99(Fasting)) mg/dl Calcium (8.6-10.3) mg/dl Total Bilirubin (0.2-1.0) mg/dl AST (13-39) U/L ALT (7-52) U/L Alkaline Phosphatase (34-104) U/L Total Protein (6.0-8.3) gm/dl Albumin (3.4-5.0) gm/dl Globulin (2.5-4.0) gm/dl Albumin/Globulin Ratio (0.9-2) Lipase (11-82) U/L Urine Color Urine Appearance (Clear) Urine pH (4.5-7.5) Ur Specific [facility] (1.000-1.030) Urine Protein (Negative) Urine Glucose (UA) (Negative) Urine Ketones (Negative) Urine Blood (Negative) Urine Nitrite (Negative) Urine Bilirubin (Negative) Urine Urobilinogen (Negative) Ur Leukocyte Esterase (Negative) Urine WBC (Auto) (0-5) /hpf Urine RBC (Auto) (0-4) /hpf U Hyaline Cast (Auto) (0-5) /lpf U Epithel Cells (Auto) (0-5) /lpf Urine Bacteria (Auto) (Negative) Urine Yeast SARS-CoV-2, RNA, NAAT NEGATIVE (NEGATIVE) Imaging Data Attestation: I personally reviewed and interpreted this imaging study as follows: Radiologist's Impression: Abdomen/Pelvis CT 08/26/22 22:13 Exam(s): CT ABDOMEN + PELVIS Without Contrast EXAM: CT Abdomen and Pelvis Without Intravenous Contrast CLINICAL HISTORY: Reason for exam: abd pain. TECHNIQUE: Axial computed tomography images of the abdomen and pelvis without intravenous contrast. CTDI is 17.48 mGy and DLP is 765.36 mGy-cm. Automated exposure control was utilized for the study. A dose lowering technique was utilized adhering to the principles of ALARA. COMPARISON: No relevant prior studies available. FINDINGS: Lung bases: Unremarkable. No mass. No consolidation. Pleural space: Loculated left pleural effusion. Moderate simple appearing right pleural effusion. ABDOMEN: Liver: Cirrhotic morphology of the liver. Gallbladder and bile ducts: Unremarkable. No calcified stones. No ductal dilation. Pancreas: Unremarkable. No ductal dilation. Spleen: Unremarkable. No splenomegaly. Adrenals: Unremarkable. No mass. Kidneys and ureters: Unremarkable. No obstructing stones. No hydronephrosis. Stomach and bowel: Unremarkable. No obstruction. No mucosal thickening. PELVIS: Appendix: No findings to suggest acute appendicitis. Bladder: Unremarkable. No stones. Reproductive: Unremarkable as visualized. ABDOMEN and PELVIS: Intraperitoneal space: There is large volume ascites. Bones/joints: Degenerative changes of the thoracolumbar spine. No acute fracture. No dislocation. Soft tissues: There is an umbilical hernia containing ascites and fat. Vasculature: There is diffuse atherosclerotic calcification of the aorta and its major branch vessels. No abdominal aortic aneurysm. Lymph nodes: Unremarkable. No enlarged lymph nodes. IMPRESSION: 1. Cirrhosis and portal hypertension with large volume ascites. 2. Loculated left pleural effusion. 3. Moderate right pleural effusion. Electronically signed by: Asad Tony MD 08/26/22 23:58 PM [facility] Narrative Prior records/ancillary studies reviewed. Triage Nursing notes reviewed. Additional history obtained from family. The patient's history was concerning for abdominal pain. Differential diagnosis: Etiologies such as progression of cancer, appendicitis, diverticulitis, PUD, biliary pathology, UTI, pancreatitis, obstruction, mesenteric ischemia, aortic pathology, infections, inflammatory bowel disease, renal colic, as well as others were entertained. Physical examination findings: As above. ER treatment provided: An order was placed for continuous cardiac monitoring. The monitor shows a rate of 60-1 50 with a sinus rhythm per my Independent interpretation. IV fluids, morphine, Zofran, Rocephin. Prior urine cultures reviewed. On reassessment the patient felt better. Diagnostics interpreted by me: The labs Independently Interpreted by myself revealed leukocytosis, urine concerning for infection sent for culture. No prior urine culture for review Imaging studies: CT was read by radiology and reviewed as above. Consultation: A consultation was placed with the hospitalist. The case was discussed and diagnostics were reviewed. The patient was evaluated in the ER for further treatment. Exam and history seem consistent with abdominal pain with urine infection with concerning for developing pyelonephritis. Patient started on IV antibiotics. She did vomit earlier. She does have a white count. Patient is agreeable to treatment plan of admission. Medicine was consulted and the case was discussed. Patient will be admitted to the medical team for further evaluation and treatment. By the evaluation outlined above emergent etiologies such as appendicitis, diverticulitis, PUD, biliary pathology, pancreatitis, obstruction, mesenteric ischemia, aortic pathology, inflammatory bowel disease, renal colic, as well as others were deemed relatively unlikely. The pt informed about the findings as listed above. All questions were answered and pleased with the treatment The chart was completed utilizing [employer] Speech voice recognition software. Grammatical errors, random word insertions, pronoun errors, and incomplete sentences are an occassional consequence of this system due to software limitations, ambient noise, and hardware issues. Any formal questions or concerns about the content, text, or information contained within the body of this dictation should be directly addressed to the physician senior court office assistant for clarification. Impression & Plan Abdominal pain, acute, Acute UTI, Nausea & vomiting, Leukocytosis Discharge Plan Visit Data Chief Complaint: Abdominal Pain Stated Complaint: ABDOMINAL PAIN (STAGE IV ENDOMETRIAL CA) ED Provider: Cruz Aviles ED Midlevel Provider: Iris Tony Discharge Problem: Abdominal pain, acute, Acute UTI, Nausea & vomiting, Leukocytosis Patient Disposition: Admitted As Inpatient Condition: Fair Forms Stand Alone Forms: My [facility] Prescriptions Prescriptions: No Action multivitamin Tablet 1 tab PO DAILY diclofenac sodium 1 % gel 2 g TOPICAL QID PRN (Reason: Pain) levothyroxine 50 mcg tablet 50 mcg PO DAILYBB cyanocobalamin (vitamin B-12) [Vitamin B-12] 500 mcg Tablet 500 mcg PO DAILY cholecalciferol (vitamin D3) [Vitamin D3] 125 mcg (5,000 unit) Tablet 125 mcg PO DAILY losartan 50 mg tablet 50 mg PO QAM oxycodone-acetaminophen 5-325 mg tablet 1 tab PO Q4H PRN (Reason: Pain) famotidine 20 mg tablet 20 mg PO QAM dexamethasone 4 mg tablet 4 mg PO QAM furosemide 20 mg tablet 20 mg PO DAILY PRN (Reason: Fluid Retention) Referrals Referrals: Carlos Low MD [Primary Care Provider] -
[2022-08-27 00:21] LABS: RBC Urine Automated 0-4 /hpf (0-4)
[2022-08-27] MEDS ORDERED: cefTRIAXone SODIUM 2,000 MG/70 ML BAG IV STA (00:21)
[2022-08-27] MEDS ORDERED: ALBUMIN 25% 25 GM/100 ML VIAL IV ONE (00:48)
--- NOTE | 2022-08-27 01:21 | History & Physical Report ---
Date of Service August 27, 2022 Assessment & Plan (1) Sepsis: Plan: Secondary to SBP hx metastatic endometrial cancer status post surgery/chemotherapy Immunocompromised patient given chronic Decadron Rx for appetite hypertension, stable mild aortic stenosis Steroid-induced hyperglycemia rule out DM Medical telemetry CS, Ceftriaxone and albumin for possible SBP Resume home diuretic Rx once intravascular volume status improved GI consult Re: Recurrent ascites Diagnostic and therapeutic paracentesis Check hemoglobin A1c DVT prophylaxis with Lovenox subcu DNR Patient request for family to be given periodic updates regarding plan of care. Mr. Aj Lobo (), contact #[phone] Ms. Juliet Diop (daughter), contact #[phone] Text document was generated using [employer] voice recognition software. It may contain grammatical or spelling errors. Kindly contact undersigned for clarification of any documentation item in question. History of Present Illness Chief Complaint: Abdominal pain Primary Care Provider: Carlos Low MD History obtained from patient and records. Medical history significant for hypertension, mild aortic stenosis, PVD, metastatic endometrial cancer status post surgery/chemotherapy, current daily steroid Rx for appetite. Recent confinement last month for hypotonic hyponatremia. Patient had seen abdominal distention and bilateral leg swelling few weeks after discharge from the hospital. Outpatient CT abdomen pelvis results last 08/09 as follows : Progressive malignancy. Malignant ascites recurrent since 06/13/2022. Left upper quadrant omental soft tissue implant probably marginally increased in size. Thoracic lymph node metastases increased in size. Loculated left pleural fluid collection marginally increased in volume. Lymphedema in the left lung increased. Small right pleural effusion new from prior. A few small hypodensities in the liver progressive and also suspicious for metastatic disease Outpatient therapeutic paracentesis done at [facility] 2 weeks ago. 2.7 L of fluid drained as per report. Patient Keytruda and Lenvima held due to disease progression on imaging. Patient seen by [facility] astronaut mission specialist outpatient 4 days ago. Patient to follow-up with oncologist CHRISTIANE on September 04, 2022 as per documentation. Progressive abdominal distention noted over the last week. Yesterday, patient experienced achy abdominal discomfort which she initially attributed to constipation. No improvement with home laxatives. Patient denies chest pain, SOB. Denies dysuria symptoms. EMS summoned to patient's home. Heart rate noted to be 160s. Patient brought to the ER for evaluation. IV ceftriaxone administered for possible UTI. 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 Allergies Allergy/AdvReac Type Severity Reaction Status Date / Time Iodinated Contrast Media Allergy Severe edema,hives Verified 08/26/22 23:05 ,other red dye Allergy Intermediate Hives Verified 08/26/22 23:05 erythromycin base AdvReac Intermediate NAUSEA/VOMI Verified 08/26/22 23:05 TTING Home Medications Medication Instructions Recorded Confirmed Type multivitamin 1 tab PO DAILY 07/30/21 08/26/22 History diclofenac sodium 1 % topical gel 2 g topical QID PRN Pain 03/08/22 08/26/22 History cholecalciferol (vitamin D3) 125 125 mcg PO DAILY 07/07/22 08/26/22 History mcg (5,000 unit) tablet (Vitamin D3) cyanocobalamin (vitamin B-12) 500 500 mcg PO DAILY 07/07/22 08/26/22 History mcg tablet (Vitamin B-12) levothyroxine 50 mcg tablet 50 mcg PO DAILYBB 07/07/22 08/26/22 History dexamethasone 4 mg tablet 4 mg PO QAM INCREASE APPETITE 08/26/22 08/26/22 History famotidine 20 mg tablet 20 mg PO QAM 08/26/22 08/26/22 History furosemide 20 mg tablet 20 mg PO DAILY PRN Fluid Retention 08/26/22 08/26/22 History losartan 50 mg tablet 50 mg PO QAM 08/26/22 08/26/22 History oxycodone-acetaminophen 5 mg-325 1 tab PO Q4H PRN Pain 08/26/22 08/26/22 History mg tablet Past Med/Surg History Medical History (Updated 08/27/22 @ 10:01 by Marco A Alonzo Jr, MD) Aortic stenosis Ascites Endometrial cancer GERD (gastroesophageal reflux disease) HTN (hypertension) Osteoarthritis Pleural effusion, left Surgical History History of cataract surgery LEFT 06/13/18: was given 2mg of versed Hx of dilation and curettage Hx of reduction of closed dislocation RIGHT WRIST Hx of tonsillectomy Social History Smoking Status: Never smoker Second Hand Exposure: No; Do You Dip or Chew Tobacco: No; Hx Alcohol Use: Yes Alcohol type: beer Hx Substance Use: No Preferred Language: Peruvian Communication Ability: Effective Communication Ability Comment: speak louder Hl7 Interface Developer Required: No Beliefs That Will Affect Care: None marital status: Current Living Situation: Spouse Current Living Situation Comment: Lives at home with Feels Safe at Home: Yes Safety Concerns: Feels Safe At This Time Assistive Devices: None Review of Systems Review of Systems: As per HPI, all other systems reviewed and negative Physical Exam Physical Exam: GENERAL: Pleasant, slightly uncomfortable, no respiratory distress SKIN: Normal color, warm HEENT: [place] palpebral conjunctivae, no ptosis, dry buccal mucosa NECK : Supple, no tenderness CHEST : Decreased breath sounds, no tenderness HEART : RRR, systolic murmur best heard over second right intercostal space ABDOMEN: Some distention, hypogastric tenderness EXTREMITIES : Bilateral LE swelling, no LE tenderness, no other conspicuous deformities noted NEUROLOGIC : Coherent, no facial asymmetry, mild hearing impairment, no other gross focality Results & Data Results & Data Vital Signs (Past 12 Hours) Vital Signs Temp Pulse Pulse Resp BP BP Pulse Ox 08/27/22 01:00 88 18 101/80 96 08/26/22 23:43 85 18 124/78 96 08/26/22 22:36 95 08/26/22 22:06 94 H 08/26/22 21:38 36.5 C 91 H 21 119/80 97 08/26/22 21:38 36.5 C 92 H 21 119/80 97 O2 Del Method 08/27/22 01:00 Room Air 08/26/22 23:43 Room Air 08/26/22 22:36 Room Air 08/26/22 22:06 08/26/22 21:38 Room Air 08/26/22 21:38 Room Air Laboratory Results Laboratory Results WBC 16.09 K/ul (4.8-10.8) H 08/26/22 23:35 RBC 4.23 M/uL (4.20-5.40) 08/26/22 23:35 Hgb 13.1 g/dl (12.0-16.0) 08/26/22 23: Hct 37.7 % (37.0-47.0) 08/26/22: MCV 89.1 fL (80.0-100.0) 08/26/22 23: MCH 31.0 pg (25.0-34.0) 08/26/22: MCHC 34.7 g/dL (32.0-36.0) 08/26/22: RDW Std Deviation 46.3 fL (36.4-46.3) 08/26/22: RDW Coeff of Khushbu 14.3 % (11.5-14.5) 08/26/22: Plt Count 325 K/uL (130-400) 08/26/22: MPV 10.4 fL (9.4-12.4) 08/26/22: Immature Gran % (Auto) 0.6 % 08/26/22: Neut % (Auto) 75.6 % 08/26/22 23: Lymph % (Auto) 14.1 % 08/26/22 23: [place] % (Auto) 9.5 % 08/26/22 23: Eos % (Auto) 0.0 % 08/26/22: Baso % (Auto) 0.2 % 08/26/22: Neut # (Auto) 12.17 K/uL (1.40-6.50) H 08/26/22: Lymph # (Auto) 2.27 K/uL (1.2-3.4) 08/26/22 23: [place] # (Auto) 1.53 K/uL (0.11-0.59) H 08/26/22 23: Eos # (Auto) 0.00 K/uL (0-0.50) 08/26/22: Baso # (Auto) 0.03 K/uL (0-0.2) 08/26/22: Immature Gran # (Auto) 0.09 K/uL (0.01-0.20) 08/26/22: Sodium 134 mmol/L (136-145) L 05/27/23 23:35 Potassium 4.5 mmol/L (3.5-5.1) 08/26/22 23:35 Chloride 95 mmol/L (98-107) L 08/26/22 23:35 Carbon Dioxide 30 mmol/L (21-32) 08/26/22 23:35 Anion Gap 9 (3-11) 08/26/22 23:35 BUN 18 mg/dl (6-23) 08/26/22 23:35 Creatinine 1.04 mg/dl (0.6-1.2) 08/26/22 23:35 Est Cr Clr Drug Dosing 42.2 ml/min 08/26/22 23:35 Est GFR ( Amer) 63.5 ml/min 08/26/22 23:35 Est GFR (Non-Af Amer) 54.8 ml/min 08/26/22 23:35 BUN/Creatinine Ratio 17.3 (10-20) 08/26/22 23:35 Glucose 105 mg/dl (70-99(Fasting)) H 08/26/22 23:35 Calcium 9.4 mg/dl (8.6-10.3) 08/26/22 23:35 Total Bilirubin 0.4 mg/dl (0.2-1.0) 08/26/22 23:35 AST 22 U/L (13-39) 08/26/22 23:35 ALT 16 U/L (7-52) 08/26/22 23:35 Alkaline Phosphatase 61 U/L (34-104) 08/26/22 23:35 Total Protein 6.3 gm/dl (6.0-8.3) 08/26/22 23:35 Albumin 3.5 gm/dl (3.4-5.0) 08/26/22 23:35 Globulin 2.8 gm/dl (2.5-4.0) 08/26/22 23:35 Albumin/Globulin Ratio 1.3 (0.9-2) 08/26/22 23:35 Lipase < 3 U/L (11-82) L 08/26/22 23:35 Urine Color Dark Yellow 08/26/22 23:45 Urine Appearance Turbid (Clear) A 08/26/22 23:45 Urine pH 5.5 (4.5-7.5) 08/26/22 23:45 Ur Specific [place] 1.022 (1.000-1.030) 08/26/22 23:45 Urine Protein Trace (Negative) H 08/26/22 23:45 Urine Glucose (UA) Negative (Negative) 08/26/22 23:45 Urine Ketones Trace (Negative) H 08/26/22 23:45 Urine Blood 1+ (Negative) H 08/26/22 23:45 Urine Nitrite Positive (Negative) A 08/26/22 23:45 Urine Bilirubin 1+ (Negative) H 08/26/22 23:45 Urine Urobilinogen Negative (Negative) 08/26/22 23:45 Ur Leukocyte Esterase 2+ (Negative) H 08/26/22 23:45 Urine WBC (Auto) >30 /hpf (0-5) H 08/26/22 23:45 Urine RBC (Auto) 0-4 /hpf (0-4) 08/26/22 23:45 U Hyaline Cast (Auto) 1-5 /lpf (0-5) 08/26/22 23:45 U Epithel Cells (Auto) >30 /lpf (0-5) H 08/26/22 23:45 Urine Bacteria (Auto) 2+ (Negative) H 08/26/22 23:45 Urine Yeast Not Reportable 08/26/22 23:45 SARS-CoV-2, RNA, NAAT NEGATIVE (NEGATIVE) 08/27/22 00:45 Impressions Abdomen/Pelvis CT 08/26/22 22:13 Exam(s): CT ABDOMEN + PELVIS Without Contrast EXAM: CT Abdomen and Pelvis Without Intravenous Contrast CLINICAL HISTORY: Reason for exam: abd pain. TECHNIQUE: Axial computed tomography images of the abdomen and pelvis without intravenous contrast. CTDI is 17.48 mGy and DLP is 765.36 mGy-cm. Automated exposure control was utilized for the study. A dose lowering technique was utilized adhering to the principles of ALARA. COMPARISON: No relevant prior studies available. FINDINGS: Lung bases: Unremarkable. No mass. No consolidation. Pleural space: Loculated left pleural effusion. Moderate simple appearing right pleural effusion. ABDOMEN: Liver: Cirrhotic morphology of the liver. Gallbladder and bile ducts: Unremarkable. No calcified stones. No ductal dilation. Pancreas: Unremarkable. No ductal dilation. Spleen: Unremarkable. No splenomegaly. Adrenals: Unremarkable. No mass. Kidneys and ureters: Unremarkable. No obstructing stones. No hydronephrosis. Stomach and bowel: Unremarkable. No obstruction. No mucosal thickening. PELVIS: Appendix: No findings to suggest acute appendicitis. Bladder: Unremarkable. No stones. Reproductive: Unremarkable as visualized. ABDOMEN and PELVIS: Intraperitoneal space: There is large volume ascites. Bones/joints: Degenerative changes of the thoracolumbar spine. No acute fracture. No dislocation. Soft tissues: There is an umbilical hernia containing ascites and fat. Vasculature: There is diffuse atherosclerotic calcification of the aorta and its major branch vessels. No abdominal aortic aneurysm. Lymph nodes: Unremarkable. No enlarged lymph nodes. IMPRESSION: 1. Cirrhosis and portal hypertension with large volume ascites. 2. Loculated left pleural effusion. 3. Moderate right pleural effusion. Electronically signed by: Asad Tony MD 08/26/22 23:58 PM
[2022-08-27 01:29] LABS: Magnesium 1.6 mg/dl (1.7-2.4)
[2022-08-27] MEDS ORDERED: oxyCODONE HCL IR 5 MG TAB (IMMEDIATE RELEASE) PO PRN (01:50)
[2022-08-27] MEDS ORDERED: PROMETHAZINE HCL 6.25 MG in SODIUM CHLORIDE 0.9% 50 ML IV PRN (01:50)
[2022-08-27] MEDS ORDERED: LORazepam 0.5 MG TAB PO PRN (01:50)
[2022-08-27] MEDS ORDERED: LORazepam 2 MG/1 ML VIAL IV STA (01:52)
[2022-08-27] MEDS ORDERED: MoRPHine SULFATE 2 MG/ML CARP IV PRN (01:52)
[2022-08-27] MEDS ORDERED: FAMOTIDINE 20MG IV PUSH 20 MG/5 ML SYR IV STA (01:54)
[2022-08-27] MEDS ORDERED: ACETAMINOPHEN 500 MG TAB PO PRN (03:07)
[2022-08-27] MEDS ORDERED: HEPARIN 100 UNIT/ML 5ML FLUSH FLUSH PRN (03:45)
[2022-08-27] MEDS: POLYETHYLENE (MIRALAX) 17 GM PACK PO SCH ×2 (05:04→08:08)
[2022-08-27] MEDS: DOCUSATE SODIUM/SENNA 50/8.6MG TAB PO SCH ×2 (05:05→08:09)
[2022-08-27] MEDS ORDERED: LEVOTHYROXINE SODIUM 50 MCG TABLET PO SCH (06:30)
[2022-08-27 06:34] LABS: Basophils # (auto) 0.03 K/uL (0-0.2); Basophils % (auto) 0.3 %; Eosinophils # (auto) 0.04 K/uL (0-0.50); Eosinophils % (auto) 0.4 %; Hematocrit (blood only) 31.7 % (37.0-47.0); Lymphocytes # (auto) 2.58 K/uL (1.2-3.4); Lymphocytes % (auto) 24.6 %; Mean Corpuscular Hemoglobin 31.3 pg (25.0-34.0); Mean Corpuscular Hgb Conc 34.7 g/dL (32.0-36.0); Mean Corpuscular Volume 90.1 fL (80.0-100.0); Mean Platelet Volume 10.7 fL (9.4-12.4); Monocytes # (auto) 0.94 K/uL (0.11-0.59); Neutrophils # (auto) 6.78 K/uL (1.40-6.50); Neutrophils % (auto) 64.7 %; Platelet Count 268 K/uL (130-400); RDW Coefficient of Variation 14.6 % (11.5-14.5); RDW Standard Deviation 47.6 fL (36.4-46.3); Red Blood Count 3.52 M/uL (4.20-5.40); White Blood Count 10.47 K/ul (4.8-10.8)
[2022-08-27 06:41] LABS: Albumin Globulin Ratio 1.7 (0.9-2); Albumin Level 3.5 gm/dl (3.4-5.0); BUN Creatinine Ratio 20.4 (10-20); Bilirubin,Total 0.3 mg/dl (0.2-1.0); Creatinine Clr Calc Pharmacy 49.5 ml/min; Est GFR (African American) 68.2 ml/min; Est GFR (Non-African American) 58.9 ml/min; Globulin 2.1 gm/dl (2.5-4.0); Potassium 3.8 mmol/L (3.5-5.1); Total Protein 5.6 gm/dl (6.0-8.3)
[2022-08-27] MEDS ORDERED: FAMOTIDINE 20 MG TAB PO SCH (09:00)
[2022-08-27] MEDS ORDERED: ENOXAPARIN INJ 40 MG/0.4 ML SYR SQ SCH (09:00)
[2022-08-27] MEDS ORDERED: CYANOCOBALAMIN (B-12) 500 MCG TABLET PO SCH (09:00)
[2022-08-27] MEDS ORDERED: MULTIVITAMIN TAB PO SCH (09:00)
[2022-08-27] MEDS ORDERED: LOSARTAN POTASSIUM 50 MG TAB PO SCH (09:00)
[2022-08-27] MEDS ORDERED: CHOLECALCIFEROL 5,000 UNITS 125 MCG TAB PO SCH (09:00)
[2022-08-27] MEDS ORDERED: ALBUMIN 25% 25 GM/100 ML VIAL IV SCH (10:00)
--- NOTE | 2022-08-27 10:02 | Gastrointestinal Consultation ---
Date of Consultation August 27, 2022 Assessment & Plan (1) Ascites: She has ascites related to omental implants of endometrial cancer. This problem is managed by paracentesis alone. She has no GI issues and normal LFT's. I have nothing further to add so will sign off. Please call if I can be of further assistance. History of Present Illness Reason for Consultation: ascites Attending Physician: Yariel Gr MD History of Present Illness 67 year old female with metastatic endometrial carcinoma with known omental implants. I am asked to see her for ascites. She was first diagnosed with ascites two weeks ago she tells me. It was drained then and she is supposed to be drained today. No history of liver disease. Only GI complaint is reflux for which she takes PPI Allergies Allergy/AdvReac Type Severity Reaction Status Date / Time Iodinated Contrast Media Allergy Severe edema,hives Verified 08/26/22 23:05 ,other red dye Allergy Intermediate Hives Verified 08/26/22 23:05 erythromycin base AdvReac Intermediate NAUSEA/VOMI Verified 08/26/22 23:05 TTING Home Medications Medication Instructions Recorded Confirmed Type multivitamin 1 tab PO DAILY 07/30/21 08/26/22 History diclofenac sodium 1 % topical gel 2 g topical QID PRN Pain 03/08/22 08/26/22 History cholecalciferol (vitamin D3) 125 125 mcg PO DAILY 07/07/22 08/26/22 History mcg (5,000 unit) tablet (Vitamin D3) cyanocobalamin (vitamin B-12) 500 500 mcg PO DAILY 07/07/22 08/26/22 History mcg tablet (Vitamin B-12) levothyroxine 50 mcg tablet 50 mcg PO DAILYBB 07/07/22 08/26/22 History dexamethasone 4 mg tablet 4 mg PO QAM INCREASE APPETITE 08/26/22 08/26/22 History famotidine 20 mg tablet 20 mg PO QAM 08/26/22 08/26/22 History furosemide 20 mg tablet 20 mg PO DAILY PRN Fluid Retention 08/26/22 08/26/22 History losartan 50 mg tablet 50 mg PO QAM 08/26/22 08/26/22 History oxycodone-acetaminophen 5 mg-325 1 tab PO Q4H PRN Pain 08/26/22 08/26/22 History mg tablet Patient History Medical History (Updated 08/27/22 @ 10:01 by Marco A Alonzo Jr, MD) Aortic stenosis Ascites Endometrial cancer GERD (gastroesophageal reflux disease) HTN (hypertension) Osteoarthritis Pleural effusion, left Surgical History History of cataract surgery LEFT 06/13/18: was given 2mg of versed Hx of dilation and curettage Hx of reduction of closed dislocation RIGHT WRIST Hx of tonsillectomy Social History Smoking Status: Never smoker Second Hand Exposure: No; Do You Dip or Chew Tobacco: No; Hx Alcohol Use: Yes Alcohol type: beer Hx Substance Use: No Preferred Language: Tongan Communication Ability: Effective Communication Ability Comment: speak louder Warehouse Director Required: No Beliefs That Will Affect Care: None marital status: Current Living Situation: Spouse Current Living Situation Comment: Lives at home with Feels Safe at Home: Yes Safety Concerns: Feels Safe At This Time Assistive Devices: None Review of Systems Review of Systems: All systems reviewed & are unremarkable except as noted in HPI & below Physical Exam Constitutional: WD/WN, vitals as above Eyes: PERRL, conjunctivae normal, anicteric sclerae Neck: trachea midline, no thyromegaly Respiratory: normal respiratory effort, lungs clear to auscultation Cardiovascular: RRR, no murmur, no edema Gastrointestinal (Abdomen): normal bowel sounds, soft, nontender, no hepatosplenomegaly Results & Data Vital Signs (Past 12 Hours) Vital Signs Temp Pulse Pulse Pulse Resp BP Pulse Ox 08/27/22 08:30 08/27/22 08:16 36.5 C 84 16 118/68 96 08/27/22 07:00 88 08/27/22 04:02 84 08/27/22 03:07 36.4 C L 84 18 132/86 95 08/27/22 03:07 08/27/22 03:13 08/27/22 03:13 36.4 C L 84 18 132/86 95 08/27/22 01:00 88 18 101/80 96 08/26/22 23:43 85 18 124/78 96 08/26/22 22:36 95 08/26/22 22:06 94 H Pulse Ox O2 Del Method O2 Del Method 05/28/23 08:30 Room Air 08/27/22 08:16 Room Air 08/27/22 07:00 08/27/22 04:02 08/27/22 03:07 Room Air 08/27/22 03:07 95 Room Air 08/27/22 03:13 Room Air 08/27/22 03:13 Room Air 08/27/22 01:00 Room Air 08/26/22 23:43 Room Air 08/26/22 22:36 Room Air 08/26/22 22:06 Laboratory Results 08/27/22 08/27/22 08/27/22 Range/Units 04:44 04:44 00:45 WBC 10.47 (4.8-10.8) K/ul RBC 3.52 L (4.20-5.40) M/uL Hgb 11.0 L (12.0-16.0) g/dl Hct 31.7 L (37.0-47.0) % MCV 90.1 (80.0-100.0) fL MCH 31.3 (25.0-34.0) pg MCHC 34.7 (32.0-36.0) g/dL RDW Std Deviation 47.6 H (36.4-46.3) fL RDW Coeff of Khushbu 14.6 H (11.5-14.5) % Plt Count 268 (130-400) K/uL MPV 10.7 (9.4-12.4) fL Immature Gran % (Auto) 1.0 % Neut % (Auto) 64.7 % Lymph % (Auto) 24.6 % Garza % (Auto) 9.0 % Eos % (Auto) 0.4 % Baso % (Auto) 0.3 % Neut # (Auto) 6.78 H (1.40-6.50) K/uL Lymph # (Auto) 2.58 (1.2-3.4) K/uL Garza # (Auto) 0.94 H (0.11-0.59) K/uL Eos # (Auto) 0.04 (0-0.50) K/uL Baso # (Auto) 0.03 (0-0.2) K/uL Immature Gran # (Auto) 0.10 (0.01-0.20) K/uL Sodium 132 L (136-145) mmol/L Potassium 3.8 (3.5-5.1) mmol/L Chloride 96 L (98-107) mmol/L Carbon Dioxide 31 (21-32) mmol/L Anion Gap 5 (3-11) BUN 20 (6-23) mg/dl Creatinine 0.98 (0.6-1.2) mg/dl Est Cr Clr Drug Dosing 49.5 ml/min Est GFR ( Amer) 68.2 ml/min Est GFR (Non-Af Amer) 58.9 ml/min BUN/Creatinine Ratio 20.4 H (10-20) Glucose 89 (70-99(Fasting)) mg/dl Calcium 9.0 (8.6-10.3) mg/dl Magnesium (1.7-2.4) mg/dl Total Bilirubin 0.3 (0.2-1.0) mg/dl AST 18 (13-39) U/L ALT 13 (7-52) U/L Alkaline Phosphatase 46 (34-104) U/L Total Protein 5.6 L (6.0-8.3) gm/dl Albumin 3.5 (3.4-5.0) gm/dl Globulin 2.1 L (2.5-4.0) gm/dl Albumin/Globulin Ratio 1.7 (0.9-2) Lipase (11-82) U/L Urine Color Urine Appearance (Clear) Urine pH (4.5-7.5) Ur Specific [place] (1.000-1.030) Urine Protein (Negative) Urine Glucose (UA) (Negative) Urine Ketones (Negative) Urine Blood (Negative) Urine Nitrite (Negative) Urine Bilirubin (Negative) Urine Urobilinogen (Negative) Ur Leukocyte Esterase (Negative) Urine WBC (Auto) (0-5) /hpf Urine RBC (Auto) (0-4) /hpf U Hyaline Cast (Auto) (0-5) /lpf U Epithel Cells (Auto) (0-5) /lpf Urine Bacteria (Auto) (Negative) Urine Yeast SARS-CoV-2, RNA, NAAT NEGATIVE (NEGATIVE) 08/26/22 08/26/22 08/26/22 Range/Units 23:45 23:35 23:35 WBC 16.09 H (4.8-10.8) K/ul RBC 4.23 (4.20-5.40) M/uL Hgb 13.1 (12.0-16.0) g/dl Hct 37.7 (37.0-47.0) % MCV 89.1 (80.0-100.0) fL MCH 31.0 (25.0-34.0) pg MCHC 34.7 (32.0-36.0) g/dL RDW Std Deviation 46.3 (36.4-46.3) fL RDW Coeff of Khushbu 14.3 (11.5-14.5) % Plt Count 325 (130-400) K/uL MPV 10.4 (9.4-12.4) fL Immature Gran % (Auto) 0.6 % Neut % (Auto) 75.6 % Lymph % (Auto) 14.1 % Garza % (Auto) 9.5 % Eos % (Auto) 0.0 % Baso % (Auto) 0.2 % Neut # (Auto) 12.17 H (1.40-6.50) K/uL Lymph # (Auto) 2.27 (1.2-3.4) K/uL Garza # (Auto) 1.53 H (0.11-0.59) K/uL Eos # (Auto) 0.00 (0-0.50) K/uL Baso # (Auto) 0.03 (0-0.2) K/uL Immature Gran # (Auto) 0.09 (0.01-0.20) K/uL Sodium 134 L (136-145) mmol/L Potassium 4.5 (3.5-5.1) mmol/L Chloride 95 L (98-107) mmol/L Carbon Dioxide 30 (21-32) mmol/L Anion Gap 9 (3-11) BUN 18 (6-23) mg/dl Creatinine 1.04 (0.6-1.2) mg/dl Est Cr Clr Drug Dosing 42.2 ml/min Est GFR ( Amer) 63.5 ml/min Est GFR (Non-Af Amer) 54.8 ml/min BUN/Creatinine Ratio 17.3 (10-20) Glucose 105 H (70-99(Fasting)) mg/dl Calcium 9.4 (8.6-10.3) mg/dl Magnesium 1.6 L (1.7-2.4) mg/dl Total Bilirubin 0.4 (0.2-1.0) mg/dl AST 22 (13-39) U/L ALT 16 (7-52) U/L Alkaline Phosphatase 61 (34-104) U/L Total Protein 6.3 (6.0-8.3) gm/dl Albumin 3.5 (3.4-5.0) gm/dl Globulin 2.8 (2.5-4.0) gm/dl Albumin/Globulin Ratio 1.3 (0.9-2) Lipase < 3 L (11-82) U/L Urine Color Dark Yellow Urine Appearance Turbid A (Clear) Urine pH 5.5 (4.5-7.5) Ur Specific [place] 1.022 (1.000-1.030) Urine Protein Trace H (Negative) Urine Glucose (UA) Negative (Negative) Urine Ketones Trace H (Negative) Urine Blood 1+ H (Negative) Urine Nitrite Positive A (Negative) Urine Bilirubin 1+ H (Negative) Urine Urobilinogen Negative (Negative) Ur Leukocyte Esterase 2+ H (Negative) Urine WBC (Auto) >30 H (0-5) /hpf Urine RBC (Auto) 0-4 (0-4) /hpf U Hyaline Cast (Auto) 1-5 (0-5) /lpf U Epithel Cells (Auto) >30 H (0-5) /lpf Urine Bacteria (Auto) 2+ H (Negative) Urine Yeast Not Reportable SARS-CoV-2, RNA, NAAT (NEGATIVE) Diagnostic Findings Abdomen/Pelvis CT 08/26/22 22:13 Exam(s): CT ABDOMEN + PELVIS Without Contrast EXAM: CT Abdomen and Pelvis Without Intravenous Contrast CLINICAL HISTORY: Reason for exam: abd pain. TECHNIQUE: Axial computed tomography images of the abdomen and pelvis without intravenous contrast. CTDI is 17.48 mGy and DLP is 765.36 mGy-cm. Automated exposure control was utilized for the study. A dose lowering technique was utilized adhering to the principles of ALARA. COMPARISON: No relevant prior studies available. FINDINGS: Lung bases: Unremarkable. No mass. No consolidation. Pleural space: Loculated left pleural effusion. Moderate simple appearing right pleural effusion. ABDOMEN: Liver: Cirrhotic morphology of the liver. Gallbladder and bile ducts: Unremarkable. No calcified stones. No ductal dilation. Pancreas: Unremarkable. No ductal dilation. Spleen: Unremarkable. No splenomegaly. Adrenals: Unremarkable. No mass. Kidneys and ureters: Unremarkable. No obstructing stones. No hydronephrosis. Stomach and bowel: Unremarkable. No obstruction. No mucosal thickening. PELVIS: Appendix: No findings to suggest acute appendicitis. Bladder: Unremarkable. No stones. Reproductive: Unremarkable as visualized. ABDOMEN and PELVIS: Intraperitoneal space: There is large volume ascites. Bones/joints: Degenerative changes of the thoracolumbar spine. No acute fracture. No dislocation. Soft tissues: There is an umbilical hernia containing ascites and fat. Vasculature: There is diffuse atherosclerotic calcification of the aorta and its major branch vessels. No abdominal aortic aneurysm. Lymph nodes: Unremarkable. No enlarged lymph nodes. IMPRESSION: 1. Cirrhosis and portal hypertension with large volume ascites. 2. Loculated left pleural effusion. 3. Moderate right pleural effusion. Electronically signed by: Asad Tony MD 08/26/22 23:58 PM
--- NOTE | 2022-08-27 15:41 | Discharge Summary ---
Date of Service August 27, 2022 Admission HPI Per Admitting Provider History obtained from patient and records. Medical history significant for hypertension, mild aortic stenosis, PVD, metastatic endometrial cancer status post surgery/chemotherapy, current daily steroid Rx for appetite. Recent confinement last month for hypotonic hyponatremia. Patient had seen abdominal distention and bilateral leg swelling few weeks after discharge from the hospital. Outpatient CT abdomen pelvis results last 08/09 as follows : Progressive malignancy. Malignant ascites recurrent since 06/13/2022. Left upper quadrant omental soft tissue implant probably marginally increased in s ize. Thoracic lymph node metastases increased in size. Loculated left pleural fluid collection marginally increased in volume. Lymphedema in the left lung increased. Small right pleural effusion new from prior. A few small hypodensities in the liver progressive and also suspicious for metastatic disease Outpatient therapeutic paracentesis done at [facility] 2 weeks ago. 2.7 L of fluid drained as per report. Patient Keytruda and Lenvima held due to disease progression on imaging. Patient seen by [facility] medical charge entry specialist outpatient 4 days ago. Patient to follow-up with oncologist CHRISTIANE on September 04, 2022 as per documentation. Progressive abdominal distention noted over the last week. Yesterday, patient experienced achy abdominal discomfort which she initially attributed to constipation. No improvement with home laxatives. Patient denies chest pain, SOB. Denies dysuria symptoms. EMS summoned to patient's home. Heart rate noted to be 160s. Patient brought to the ER for evaluation. IV ceftriaxone administered for possible UTI. 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 Admission Exam Per Admitting Provider GENERAL: Pleasant, slightly uncomfortable, no respiratory distress SKIN: Normal color, warm HEENT: Chillum palpebral conjunctivae, no ptosis, dry buccal mucosa NECK : Supple, no tenderness CHEST : Decreased breath sounds, no tenderness HEART : RRR, systolic murmur best heard over second right intercostal space ABDOMEN: Some distention, hypogastric tenderness EXTREMITIES : Bilateral LE swelling, no LE tenderness, no other conspicuous deformities noted NEUROLOGIC : Coherent, no facial asymmetry, mild hearing impairment, no other gross focality Principal Diagnosis Abdominal pain, leukocytosis - likely UTI Discharge Exam GENERAL: WD/WN F in NAD HEENT: NC/AT. EOMI. Chillum palpebral conjunctivae NECK : Supple CHEST : Decreased breath sounds, no tenderness HEART : RRR, systolic murmur best heard over second right intercostal space ABDOMEN: Some distention, + bowel sounds, nontender to palp. EXTREMITIES : B/l LE swelling, no LE tenderness, moves extremities SKIN: warm, dry NEUROLOGIC : alert, oriented, answering appropriately, no facial asymmetry, mild hearing impairment, moves extremities Discharge Data Allergies Allergy/AdvReac Type Severity Reaction Status Date / Time Iodinated Contrast Media Allergy Severe edema,hives Verified 08/26/22 23:05 ,other red dye Allergy Intermediate Hives Verified 08/26/22 23:05 erythromycin base AdvReac Intermediate NAUSEA/VOMI Verified 08/26/22 23:05 TTING Consultations 08/27/22 00:45 ED Decision to Admit Stat 08/27/22 03:07 Consult Gastroenterology Routine Ordered Studies 08/26/22 22:13 CT abd pelvis wo con Stat FINDINGS: Lung bases: Unremarkable. No mass. No consolidation. Pleural space: Loculated left pleural effusion. Moderate simple appearing right pleural effusion. ABDOMEN: Liver: Cirrhotic morphology of the liver. Gallbladder and bile ducts: Unremarkable. No calcified stones. No ductal dilation. Pancreas: Unremarkable. No ductal dilation. Spleen: Unremarkable. No splenomegaly. Adrenals: Unremarkable. No mass. Kidneys and ureters: Unremarkable. No obstructing stones. No hydronephrosis. Stomach and bowel: Unremarkable. No obstruction. No mucosal thickening. PELVIS: Appendix: No findings to suggest acute appendicitis. Bladder: Unremarkable. No stones. Reproductive: Unremarkable as visualized. ABDOMEN and PELVIS: Intraperitoneal space: There is large volume ascites. Bones/joints: Degenerative changes of the thoracolumbar spine. No acute fracture. No dislocation. Soft tissues: There is an umbilical hernia containing ascites and fat. Vasculature: There is diffuse atherosclerotic calcification of the aorta and its major branch vessels. No abdominal aortic aneurysm. Lymph nodes: Unremarkable. No enlarged lymph nodes. IMPRESSION: 1. Cirrhosis and portal hypertension with large volume ascites. 2. Loculated left pleural effusion. 3. Moderate right pleural effusion. Hospital Course (1) Sepsis: Pt came with elevated WBC 16K, concern for possible sepsis on admission, possibly secondary to SBP or UTI hx metastatic endometrial cancer status post surgery/chemotherapy Immunocompromised patient given chronic Decadron Rx for appetite Pt came w/ abdominal pain, constipation, now abdominal pain resolved and pt would like to go home and follow with palliative medicine UA c/w possible UTI - discussed with the pt that urine culture is pending. Plan to discharge on empiric antibiotic. Pt was started on ceftriaxone here - WBC now normalized GI was consulted on admission for ascites - they report that only radiology would do paracentesis Discussed with radiology, patient and her family at the bedside. Fluid seems to be less significant as previously when she had paracentesis done, and patient does not feel as distended. Patient says that she can have paracentesis done as outpatient when she feels distended. She was started on a diet, which she tolerated, and would like to be home, and follow-up with palliative medicine. hypertension, stable mild aortic stenosis Steroid-induced hyperglycemia By CMS guidelines, a determination that the admission or continued stay is not medically necessary has been made by a member of the UR committee and a physician for this hospital stay, therefore a Code 44 will be completed and the Inpatient admission will be changed to outpatient. Total Time Total Time Spent Total Time Spent (In Minutes): 40 Discharge Plan Discharge Items Patient Disposition: Home - Self-Care Reason For Visit: SEPSIS Discharge Diagnosis: Abdominal pain, leukocytosis - likely UTI Condition on Discharge: Fair Activity: Per Instructions section Non-emergency contact: Primary Care Provider and Specialist Call non-emergency contact if: you have any medication questions and your symptoms worsen Follow-up/Referrals: Carlos Low MD [Primary Care Provider] - Diet: Regular Addtl Attending Provider Instructions: Follow-up with your primary care doctor, oncologist, palliative medicine physician. Finish antibiotic treatment, as prescribed. Discuss further with your food tray assembler, if you need another paracentesis/fluid check. For constipation, you can take MiraLAX, senna, or [id number] Dulcolax suppository. Discuss further with your healthcare providers what would be beneficial. Pending Studies at Discharge: Yes (Final urine culture and blood culture results) Stand-Alone Forms: My [employer], Smoking Cessation Medications and DC Order Prescriptions: New amoxicillin-pot clavulanate 875-125 mg tablet 1 tab PO BID 5 Days Qty: 10 0RF Continued multivitamin Tablet 1 tab PO DAILY diclofenac sodium 1 % gel 2 g TOPICAL QID PRN (Reason: Pain) levothyroxine 50 mcg tablet 50 mcg PO DAILYBB cyanocobalamin (vitamin B-12) [Vitamin B-12] 500 mcg Tablet 500 mcg PO DAILY cholecalciferol (vitamin D3) [Vitamin D3] 125 mcg (5,000 unit) Tablet 125 mcg PO DAILY losartan 50 mg tablet 50 mg PO QAM oxycodone-acetaminophen 5-325 mg tablet 1 tab PO Q4H PRN (Reason: Pain) famotidine 20 mg tablet 20 mg PO QAM dexamethasone 4 mg tablet 4 mg PO QAM furosemide 20 mg tablet 20 mg PO DAILY PRN (Reason: Fluid Retention) Discharge Orders: Discharge Order (Routine); Ordered 08/27/22 Ordered By: Yariel Gr Admission Data Admit Date/Time: 08/27/22 01:48 Attending Provider: Yariel Gr Admit Provider: Jonathan Marrero Primary Care Provider: Carlos Low Other Providers: Jonathan Marrero ; Lucia Lopez ; Mamadou Horan ; Delma Gates ; Keely Ferreira ; Nicki Bone ; Kaylee East ; Bhavin Peraza ; Mikie Pardo ; Chaya De La Rosa ; Nicky Ybeoah ; Pacheco Lord ; Berta Shane ; Mckayla Galvan ; Shruthi Rogel ; Lenora Rosen ; Ashlee Lunsford ; Tenzin Leavitt ; Rahat Noel ; Astrid Medina ; Marco A Alonzo Jr Other Interventions: Discharge Summary Assessment (RN) Last Done: 08/27/22 15:09
--- NOTE | 2022-08-27 15:46 | Communication Note ---
Date of Service: August 27, 2022 By CMS guidelines, a determination that the admission or continued stay is not medically necessary has been made by a member of the Utilization Review commi ttee and a physician for this hospital stay. Therefore, a Code 44 will be completed and the inpatient admission will be changed to outpatient. Ladonna Matthews DO [facility]
[2022-08-28] MEDS ORDERED: cefTRIAXone SODIUM 2,000 MG in DEXTROSE 5% 50 ML IV SCH (01:00)
== END 2022-08-27 16:10 | disposition home or self-care (01) ==
LOC: ED 21:31 → 2N 08-27 01:48 → INTOOBSV 08-27 01:48 → 2N 08-27 02:34